=== PATIENT | female | born 1950 | race Caucasian/White ===

== ENCOUNTER → 2023-06-13 08:30 | Outpatient (CLI) | payer MEDICARE, SELFPAY ==
[2023-06-13 18:14] LABS: Basophils % 0.4 % (0.1-2.0); Eosinophils # 0.1 K/mm3 (0.0-0.4); Eosinophils % 0.7 % (0.1-12.0); Hematocrit 48.8 % (37.0-47.0); Hemoglobin 15.6 g/dL (12.2-16.2); Lymphocytes # 1.2 K/mm3 (0.7-4.5); Lymphocytes % 15.6 % (10-50); Mean Corpuscular HGB Conc 31.9 g/dL (31.8-35.4); Mean Corpuscular Hemoglobin 29.2 pg (27.0-31.2); Mean Corpuscular Volume 91.6 fl (81-99); Mean Platelet Volume 9.2 fl (7.4-10.4); Monocytes # 0.5 K/mm3 (0.1-1.0); Monocytes % 7.3 % (1.7-9.3); Neutrophils # 5.6 K/mm3 (1.8-7.8); Platelet Count 112 K/mm3 (142-424); Red Blood Count 5.33 M/mm3 (4.20-5.40); Red Cell Distribution Width 14.7 % (11.5-17.5); White Blood Count 7.4 K/mm3 (4.8-10.8)
[2023-06-13 18:24] LABS: Alanine Aminotransferase 26 U/L (12-78); Albumin/Globulin Ratio 1.1 (1.1-1.8); Alkaline Phosphatase 205 U/L (38-126); Anion Gap 5.3 mEq/L (5-15); Aspartate Amino Transferase 49 U/L (14-36); Blood Urea Nitrogen 11 mg/dl (7-17); Calcium 7.8 mg/dl (8.4-10.2); Carbon Dioxide 31 mmol/L (22.0-30.0); Chloride 101 mmol/L (98-107); Chol/HDL Ratio 2.1 (1-3.5); Cholesterol 162 mg/dl (140-200); Estimated Glomerular Filt Rate 82 ml/min (>60); GFR (African American) 99 ML/MIN (>60); Globulin 2.7 g/dL (1.3-3.2); Glucose 98 mg/dl (74-100); HDL Cholesterol 78 mg/dl (40-60); Potassium 3.3 mmoL/L (3.5-5.1); Sodium 134 mmol/L (136-145); Total Protein,Serum 5.7 g/dl (6.3-8.2); Triglycerides 112 mg/dl (30-150); VLDL Cholesterol 22 mg/dL (0-40)
[2023-06-13 18:35] LABS: Direct LDL Cholesterol 59.86 mg/dL (100-129)
[2023-06-13 18:42] LABS: 25-OH Vitamin D, Total < 12.8 ng/mL (30-100)
[2023-06-13 18:54] LABS: Thyroid Stimulating Hormone 1.32 uIU/mL (0.465-4.68)
== END ==
PROVIDERS: PCP Nurse Practitioner Family; Visit Provider Nurse Practitioner Family
DX: R53.83 Other fatigue (principal); I10 Essential (primary) hypertension; E55.9 Vitamin D deficiency, unspecified; E78.5 Hyperlipidemia, unspecified; Z68.21 Body mass index [BMI] 21.0-21.9, adult; Z87.891 Personal history of nicotine dependence
CPT/HCPCS: 80053; 80061; 82306; 84443; 85025

== ENCOUNTER → 2023-06-20 09:11 | Outpatient (CLI) | payer MEDICARE, SELFPAY ==
[2023-06-20 18:57] LABS: Microalbumin < 6.000 mg/L (0-16.7)
[2023-06-20 19:17] LABS: Creatinine,Urine Random 43 mg/dL (Not Estab.)
== END ==
LOC: LAB.DROPOF 06-21 09:13
PROVIDERS: PCP Nurse Practitioner Family; Visit Provider Nurse Practitioner Family
DX: N39.0 Urinary tract infection, site not specified (principal); N18.9 Chronic kidney disease, unspecified; B96.29 Other Escherichia coli [E. coli] as the cause of diseases classified elsewhere
CPT/HCPCS: 82043; 82570; 87086

== ENCOUNTER 2023-09-25 08:47 | Outpatient (CLI) | payer MEDICARE, SELFPAY ==
--- NOTE | 2023-09-25 09:25 | CT_ITS ---
FINAL REPORT CLINICAL HISTORY: FAMILY H/O OF COLON POLYPS FINDINGS: CT OF THE ABDOMEN AND PELVIS WITH CONTRAST Axial CT images of the abdomen and pelvis were obtained after the administration of oral and iv contrast. Coronal reformatted images were also obtained and reviewed.This study was performed with techniques to keep radiation doses as low as reasonably achievable (ALARA). Individualized dose reduction techniques using automated exposure control or adjustment of mA and/or kV according to the patient's size were employed. Abdomen: There is motion on many of the images which decreases the sensitivity of the exam. The patient is status postcholecystectomy. The liver has an irregular contour consistent with cirrhosis. There is splenomegaly with the spleen measuring 14.7 cm in length. A small to moderate of amount of ascites is noted in the abdomen. No adrenal mass is present. The pancreas has an unremarkable appearance. The kidneys are normal, without evidence of mass or hydronephrosis. The aorta is normal in caliber. There are varices in the left upper quadrant. Pelvis: There is a 4.8 cm polypoid mass near the level of the ileocecal valve with intussusception into the ascending colon. This is best seen on axial image 50 and coronal image 37 and is most worrisome for neoplasm. There is sigmoid diverticulosis. There is a small amount of ascites in the pelvis. The patient is status post hysterectomy. The patient is status post left hip arthroplasty. IMPRESSION: 4.8 cm polypoid mass near the level of the ileocecal valve with intussusception into the ascending colon. Findings are most worrisome for neoplasm. Findings of cirrhosis with portal hypertension. Small to moderate amount of ascites. Reviewed, Interpreted and Dictated by Zechariah Lopez III, MD Transcribed by Octavia Gaona Authenticated and [facility]
--- NOTE | 2023-09-25 09:25 | CT_ITS ---
FINAL REPORT CLINICAL HISTORY: FAMILY H/O OF COLON POLYPS FINDINGS: Axial CT images of the chest were obtained with contrast. Coronal reformatted images were also obtained. This study was performed with techniques to keep radiation doses as low as reasonably achievable, (ALARA). Individualized dose reduction techniques using automated exposure control or adjustment of mA and/or KV according to the patient's size were employed. There is ectasia of the ascending aorta measuring 3.6 cm. There is no evidence of mediastinal or hilar mass or adenopathy. No axillary mass or adenopathy is identified. On lung window images, no pulmonary mass or dominant pulmonary nodule is identified. No localized pulmonary inflammatory process is identified. There is scarring in the right upper lobe. IMPRESSION: No mass or localized inflammatory process. Ectasia of the ascending aorta at 3.6 cm. Reviewed, Interpreted and Dictated by Zechariah Lopez III, MD Transcribed by Octavia Gaona Authenticated and [facility]
[2023-09-25 09:34] LABS: Blood Urea Nitrogen 13 mg/dl (7-17); Estimated Glomerular Filt Rate 70 ml/min (>60); GFR (African American) 85 ML/MIN (>60)
[2023-09-25] MEDS: SODIUM CHLORIDE 0.9% 10ML SYR (RAD ONLY) 10 ML IV (09:59)
[2023-09-25] MEDS: IOPAMIDOL-370 (76%);100ML BOTTLE 75 ML IV (09:59)
== END 2023-09-25 23:59 ==
LOC: RAD 08:48
PROVIDERS: PCP Nurse Practitioner Family; Visit Provider Colon & Rectal Surgery
DX: Z83.719 Family history of colon polyps, unspecified (principal); D12.0 Benign neoplasm of cecum
CPT/HCPCS: 36415; 71260; 74177; 82565; 84520; Q9967

== ENCOUNTER 2023-09-30 14:47 | Outpatient (POV) | payer MEDICARE, SELFPAY | END 2023-09-30 23:59 | disposition home or self-care (01) | LOC: SC 14:47 | PROVIDERS: PCP Nurse Practitioner Family; Visit Provider Dermatology | DX: Z00.00 Encounter for general adult medical examination without abnormal findings (principal) ==

== ENCOUNTER 2024-01-01 19:50 | Inpatient (IN) | payer MEDICARE, SELFPAY ==
[2024-01-01] VITALS (7 sets, daily range): BP systolic 132–174; BP diastolic 75–97; PULSE 93–102; RESP 15–27; TEMP 36.9; O2SAT 91–97; BMI 21.2
--- NOTE | 2024-01-01 19:55 | ED_ITS ---
Discharge Plan Prescriptions Prescriptions: No Action clonazepam 1 mg tablet 1 mg PO BID nitrofurantoin monohyd/m-cryst [Macrobid] 100 mg capsule 100 mg PO Q12H 10 Days Qty: 20 0RF Rx Instructions: must administer with a meal/food cholecalciferol (vitamin D3) 1,250 mcg (50,000 unit) capsule 1,250 mcg PO WEEKLY Qty: 12 0RF ferrous sulfate [FeroSul] 325 mg (65 mg iron) tablet 325 mg PO DAILY Qty: 90 0RF omeprazole 20 mg capsule,delayed release(DR/EC) 20 mg PO DAILY Qty: 90 0RF cholecalciferol (vitamin D3) 50 mcg (2,000 unit) tablet See Rx Instructions .ROUTE .COMPLEX Qty: 90 0RF Dose Instruction: TAKE ONE TABLET BY MOUTH ONCE A DAY Rx Instructions: TAKE ONE TABLET BY MOUTH ONCE A DAY levetiracetam 750 mg tablet See Rx Instructions .ROUTE .COMPLEX Qty: 60 0RF Dose Instruction: TAKE ONE TABLET BY MOUTH 2 TIMES A DAY FOR SEIZURES Rx Instructions: TAKE ONE TABLET BY MOUTH 2 TIMES A DAY FOR SEIZURES escitalopram oxalate 10 mg tablet See Rx Instructions .ROUTE .COMPLEX Qty: 30 0RF Dose Instruction: TAKE ONE TABLET BY MOUTH ONCE A DAY FOR DEPRESSION Rx Instructions: TAKE ONE TABLET BY MOUTH ONCE A DAY FOR DEPRESSION Referrals Follow up/Referrals: Ofelia Ko APRN [Primary Care Provider] - See instructions Discharge ED Provider: Wilbur Angela General Adult HPI General Stated complaint: Swelling in joints,stomach Time Seen by Provider: 01/01/24 19:55 Related Data Home Medications Medication Instructions Recorded Confirmed clonazepam 1 mg tablet 1 mg PO BID 06/13/23 06/13/23 Previous Rx's Medication Instructions Recorded cholecalciferol (vitamin D3) 1,250 1,250 mcg PO WEEKLY vitamin d 06/26/23 mcg (50,000 unit) capsule deficiency #12 caps nitrofurantoin 100 mg PO Q12H 10 days #20 caps 06/26/23 monohydrate/macrocrystals 100 mg capsule (Macrobid) ferrous sulfate 325 mg (65 mg 325 mg PO DAILY iron deficiency 07/03/23 iron) tablet (FeroSul) #90 tabs omeprazole 20 mg capsule,delayed 20 mg PO DAILY #90 caps 07/03/23 release cholecalciferol (vitamin D3) 50 See Rx Instructions .Route 10/06/23 mcg (2,000 unit) tablet .COMPLEX #90 tabs escitalopram oxalate 10 mg tablet See Rx Instructions .Route 12/10/23 .COMPLEX #30 tabs levetiracetam 750 mg tablet See Rx Instructions .Route 12/10/23 .COMPLEX #60 tabs Allergies Allergy/AdvReac Type Severity Reaction Status Date / Time Penicillins Allergy Mild Verified 06/13/23 10:04 [facility] Disclaimer: The information contained in this section may have been updated after the patient was seen, as this information can be updated by other users. Medical History (Updated 06/23/23 @ 03:58 by Delbert Espinoza APRN) CKD (chronic kidney disease) Portal hypertension Hemiplegia affecting right dominant side Secondary hyperaldosteronism Dementia Cirrhosis COPD (chronic obstructive pulmonary disease) Epilepsy Surgical History (Updated 06/13/23 @ 10:10 by Leida Bush CMA) History of cholecystectomy H/O total hysterectomy History of left hip replacement Family History (Updated 06/13/23 @ 10:10 by Leida Bush CMA) Other Cancer Heart attack Hypertension Social History (Updated 06/13/23 @ 10:11 by Leida Bush CMA) Smoking Status: Former smoker alcohol intake: never substance use type: denies use current occupational status: unemployed, retired and disabled Travel in the last 8 weeks: None ROS Obtained: Yes Systems reviewed as appropriate & no additional complaints except as documented Physical Exam General General appearance: alert and in no apparent distress Head Head exam: atraumatic and normal inspection Eye Eye exam: Present normal appearance, PERRL and EOMI ENT ENT exam: Present normal exam, normal oropharynx and mucous membranes moist Neck Neck exam: Present normal inspection, full ROM and trachea midline; Absent lymphadenopathy Chest Chest inspection: Present normal inspection and symmetric chest wall rise Respiratory Respiratory exam: Present normal lung sounds bilaterally; Absent accessory muscle use Cardiovascular Cardiovascular exam: Present regular rate, normal rhythm, normal heart sounds, +S1 and +S2 Abdominal Exam Abdominal exam: Present soft and normal bowel sounds; Absent tenderness, guarding or rebound Extremities Exam Extremities exam: Present normal inspection and full ROM Neurological Exam Neurological exam: Present alert, oriented X3 and CN II-XII intact Psychiatric Psychiatric exam: Present normal affect and normal mood Skin Skin exam: Present warm, dry and normal color Lymphatic Lymphatic Findings: no adenopathy Medical Decision Making Medical Decision Narrative: In summary patient is a [age, sex] who presents to the emergency department for evaluation of [complaint]. Patient is [hemodynamically stable/unstable] upon arrival, [febrile/afebrile]. [Unremarkable physical exam, nonfocal exam versus focal remarkable exam]. Differential diagnosis includes [DDx]. Initial workup will be conducted with [hematologic labs, imaging, respiratory swab, describe workup]. Initial interventions include [crystalloid bolus, medications, p.o. challenge, etc.] initial workup reviewed by me [hematologic labs are remarkable for... Imaging remarkable for... Urinalysis remarkable for]. Upon repeat mounika luation [patient had acceptable resolution of symptoms, had persistent pain for which additional interventions were conducted (describe interventions), tolerated p.o., was ambulatory, etc.]. Given this [patient is appropriate for discharge at this time and will be discharged with a prescription for... The case was discussed with hospital medicine regarding management and they will admit the patient their service for continued evaluation at this time... Etc.] Places where you can increase complexity: I informally interpreted the patient's chest x-ray or CT read and is remarkable for... Documenting what the environmental monitoring technician shows with rate and rhythm Consideration of test but deferring. Ex: I considered chest x-ray on this patient however given that they have no oxygen requirement and are clear to auscultation all lung rosado will be deferred. Social determinants of health: Given that patient is undomiciled increases complexity. Given that patient has polysubstance abuse compounds all aspects of care
--- NOTE | 2024-01-01 20:10 | XR_ITS ---
PROCEDURE INFORMATION: Exam: XR Left Wrist Exam date and time: 01/01/2024 8:25 PM Age: 73 years old Clinical indication: Swelling; Wrist; Left; Additional info: Bruising and swelling posterolateral, suspect fall TECHNIQUE: Imaging protocol: Radiologic exam of the left wrist. Views: 3 or more views. COMPARISON: CR XR FOREARM LT 2V 01/01/2024 8:25 PM FINDINGS: Bones/joints: ORIF of distal radius. No acute fracture line. Osteopenia. Degenerative changes of scaphoid multangular joint. Soft tissues: Normal. IMPRESSION: No acute findings.
--- NOTE | 2024-01-01 20:10 | XR_ITS ---
PROCEDURE INFORMATION: Exam: XR Right Forearm Exam date and time: 01/01/2024 8:25 PM Age: 73 years old Clinical indication: Other: Bruising; Additional info: Bruising and swelling posterolateral, suspect fall TECHNIQUE: Imaging protocol: Radiologic exam of the right forearm. Views: 2 views. COMPARISON: CR XR HAND RT MIN 3V 01/01/2024 8:25 PM FINDINGS: Bones/joints: No fracture line identified. Osteopenia. Degenerative changes of elbow and wrist. No obvious effusion. Soft tissues: Normal. IMPRESSION: No acute findings.
--- NOTE | 2024-01-01 20:10 | XR_ITS ---
PROCEDURE INFORMATION: Exam: XR Right Hand Exam date and time: 01/01/2024 8:25 PM Age: 73 years old Clinical indication: Other: Bruising; Additional info: Bruising and swelling posterolateral, suspect fall TECHNIQUE: Imaging protocol: Radiologic exam of the right hand. Views: 3 or more views. COMPARISON: CR XR HAND RT MIN 3V 01/01/2024 8:25 PM FINDINGS: Bones/joints: ORIF of distal radius. No acute fracture line. Osteopenia. Degenerative changes of scaphoid multangular, carpometacarpal and intercarpal joints. Soft tissues: Normal. IMPRESSION: No acute findings.
--- NOTE | 2024-01-01 20:10 | XR_ITS ---
PROCEDURE INFORMATION: Exam: XR Right Wrist Exam date and time: 01/01/2024 8:25 PM Age: 73 years old Clinical indication: Swelling; Wrist; Right; Additional info: Bruising and swelling posterolateral, suspect fall TECHNIQUE: Imaging protocol: Radiologic exam of the right wrist. Views: 3 or more views. COMPARISON: CR XR WRIST RT MIN 3V 01/01/2024 8:25 PM FINDINGS: Bones/joints: No acute fracture line. Osteopenia. Degenerative changes of scaphoid multangular joint. Soft tissues: Normal. IMPRESSION: No acute findings.
--- NOTE | 2024-01-01 20:10 | XR_ITS ---
PROCEDURE INFORMATION: Exam: XR Left Hand Exam date and time: 01/01/2024 8:25 PM Age: 73 years old Clinical indication: Other: Bruising; Additional info: Bruising and swelling posterolateral, suspect fall TECHNIQUE: Imaging protocol: Radiologic exam of the left hand. Views: 3 or more views. COMPARISON: CR XR HAND LT MIN 3V 01/01/2024 8:25 PM FINDINGS: Bones/joints: ORIF of distal radius. No acute fracture line. Osteopenia. Degenerative changes of scaphoid multangular joint. Soft tissues: Normal. IMPRESSION: No acute findings.
--- NOTE | 2024-01-01 20:10 | XR_ITS ---
PROCEDURE INFORMATION: Exam: XR Left Forearm Exam date and time: 01/01/2024 8:25 PM Age: 73 years old Clinical indication: Other: Bruising; Additional info: Bruising and swelling posterolateral, suspect fall TECHNIQUE: Imaging protocol: Radiologic exam of the left forearm. Views: 2 views. COMPARISON: CR XR FOREARM LT 2V 01/01/2024 8:25 PM FINDINGS: Bones/joints: ORIF of distal radius. No acute fracture line. Osteopenia. Degenerative changes of scaphoid multangular joint. Degenerative changes of the visualized elbow. No effusion. Soft tissues: Normal. IMPRESSION: No acute findings.
--- NOTE | 2024-01-01 20:10 | XR_ITS ---
PROCEDURE INFORMATION: Exam: XR Right Elbow Exam date and time: 01/01/2024 8:25 PM Age: 73 years old Clinical indication: Other: Bruising; Additional info: Bruising and swelling posterolateral, suspect fall TECHNIQUE: Imaging protocol: Radiologic exam of the right elbow. Views: 3 or more views. COMPARISON: CR XR ELBOW RT MIN 3V 01/01/2024 8:25 PM FINDINGS: Bones/joints: Mild degenerative changes of elbow. No cortical disruption. Osteopenia. No effusion. Soft tissues: Normal. IMPRESSION: No acute findings.
--- NOTE | 2024-01-01 20:12 | CT_ITS ---
PROCEDURE INFORMATION: Exam: CT Head Without Contrast Exam date and time: 01/01/2024 8:27 PM Age: 73 years old Clinical indication: Altered mental status/memory loss; Additional info: AMS, concern for fall TECHNIQUE: Imaging protocol: Computed tomography of the head without contrast. Radiation optimization: All CT scans at this facility use at least one of these dose optimization techniques: automated exposure control; mA and/or kV adjustment per patient size (includes targeted exams where dose is matched to clinical indication); or iterative reconstruction. COMPARISON: No relevant prior studies available. FINDINGS: Brain: No hemorrhage. Underlying periventricular white matter changes. Underlying parenchymal cortical volume loss. Chronic dystrophic calcification of both basal ganglia. No mass effect. Cerebral ventricles: No ventriculomegaly. Paranasal sinuses: Visualized sinuses are unremarkable. No fluid levels. Mastoid air cells: Visualized mastoid air cells are well aerated. Bones: Unremarkable. No acute fracture. Soft tissues: Unremarkable. IMPRESSION: No acute intracranial abnormality.
--- NOTE | 2024-01-01 20:12 | XR_ITS ---
PROCEDURE INFORMATION: Exam: XR Chest Exam date and time: 01/01/2024 8:25 PM Age: 73 years old Clinical indication: Other: AMS TECHNIQUE: Imaging protocol: Radiologic exam of the chest. Views: 1 view. COMPARISON: CT CHEST W CON 09/25/2023 9:46 AM FINDINGS: Lungs: Right mid lung zone opacity. No consolidation. Pleural spaces: Unremarkable. No pleural effusion. No pneumothorax. Heart/Mediastinum: Unremarkable. No cardiomegaly. Bones/joints: Unremarkable. IMPRESSION: Right mid lung zone opacity likely infectious/inflammatory. Recommend follow-up to document resolution on treatment.
--- NOTE | 2024-01-01 20:40 | ED_ITS ---
Discharge Plan Disposition Patient Disposition: Admitted Prescriptions Prescriptions: No Action clonazepam 1 mg tablet 1 mg PO BID nitrofurantoin monohyd/m-cryst [Macrobid] 100 mg capsule 100 mg PO Q12H 10 Days Qty: 20 0RF Rx Instructions: must administer with a meal/food cholecalciferol (vitamin D3) 1,250 mcg (50,000 unit) capsule 1,250 mcg PO WEEKLY Qty: 12 0RF ferrous sulfate [FeroSul] 325 mg (65 mg iron) tablet 325 mg PO DAILY Qty: 90 0RF omeprazole 20 mg capsule,delayed release(DR/EC) 20 mg PO DAILY Qty: 90 0RF cholecalciferol (vitamin D3) 50 mcg (2,000 unit) tablet See Rx Instructions .ROUTE .COMPLEX Qty: 90 0RF Dose Instruction: TAKE ONE TABLET BY MOUTH ONCE A DAY Rx Instructions: TAKE ONE TABLET BY MOUTH ONCE A DAY levetiracetam 750 mg tablet See Rx Instructions .ROUTE .COMPLEX Qty: 60 0RF Dose Instruction: TAKE ONE TABLET BY MOUTH 2 TIMES A DAY FOR SEIZURES Rx Instructions: TAKE ONE TABLET BY MOUTH 2 TIMES A DAY FOR SEIZURES escitalopram oxalate 10 mg tablet See Rx Instructions .ROUTE .COMPLEX Qty: 30 0RF Dose Instruction: TAKE ONE TABLET BY MOUTH ONCE A DAY FOR DEPRESSION Rx Instructions: TAKE ONE TABLET BY MOUTH ONCE A DAY FOR DEPRESSION Referrals Follow up/Referrals: Ofelia Ko APRN [Primary Care Provider] - See instructions Clinical Impressions Clinical Impression: Abdominal swelling, Swelling of extremity, Cellulitis, CHF exacerbation Discharge ED Provider: Wilbur Angela General Adult HPI <Wilbur Angela MD - Last Filed: 01/01/24 22:56> General Chief complaint: PAIN Stated complaint: Swelling in joints,stomach Time Seen by Provider: 01/01/24 19:55 Mode of Arrival: Wheelchair Source of Information: Patient and Relative Limitations: No Limitations Description of Symptoms (Recalled from ER Triage Doc. by RN): Patient reports that she's sick in her whole body. Patient endorses all over pain for the last week. Family at bedside reports that patient has known liver cirrosis, her belly appears more swollen than usual and noted swelling in her extremities as well. Family also noted that her ankles appear purple when they don't normally appear that way. History of Present Illness HPI narrative: Please note that above description of symptoms, in this electronic medical record under categorization of recalled from ER triage doctor by RN are reflective of an initial nursing assessment, however, is not reflective of my full history and physical exam that was personally taken and clarified. Consequentially, this preceding description of symptoms, which may include the patient's categorized chief complaint in the EMR, do not reflect my personal clinical impression, and the ultimate description of history of present illness and patient stated complaints should be deferred to this section of the note. Unless stated otherwise or congruent with this section of the note, additional signs, symptoms, or incongruence should be interpreted as inaccurate with my clinical impression. Related Data Home Medications Medication Instructions Recorded Confirmed clonazepam 1 mg tablet 1 mg PO BID 06/13/23 06/13/23 Previous Rx's Medication Instructions Recorded cholecalciferol (vitamin D3) 1,250 1,250 mcg PO WEEKLY vitamin d 06/26/23 mcg (50,000 unit) capsule deficiency #12 caps nitrofurantoin 100 mg PO Q12H 10 days #20 caps 06/26/23 monohydrate/macrocrystals 100 mg capsule (Macrobid) ferrous sulfate 325 mg (65 mg 325 mg PO DAILY iron deficiency 07/03/23 iron) tablet (FeroSul) #90 tabs omeprazole 20 mg capsule,delayed 20 mg PO DAILY #90 caps 07/03/23 release cholecalciferol (vitamin D3) 50 See Rx Instructions .Route 10/06/23 mcg (2,000 unit) tablet .COMPLEX #90 tabs escitalopram oxalate 10 mg tablet See Rx Instructions .Route 12/10/23 .COMPLEX #30 tabs levetiracetam 750 mg tablet See Rx Instructions .Route 12/10/23 .COMPLEX #60 tabs Allergies Allergy/AdvReac Type Severity Reaction Status Date / Time Penicillins Allergy Mild Verified 06/13/23 10:04 [facility] <Wilbur nAgela MD - Last Filed: 01/01/24 22:56> [facility] Disclaimer: The information contained in this section may have been updated after the patient was seen, as this information can be updated by other users. Medical History (Updated 01/01/24 @ 22:56 by Wilbur Angela MD) CKD (chronic kidney disease) Portal hypertension Hemiplegia affecting right dominant side Secondary hyperaldosteronism Dementia Cirrhosis COPD (chronic obstructive pulmonary disease) Epilepsy Surgical History (Updated 06/13/23 @ 10:10 by Leida Bush CMA) History of cholecystectomy H/O total hysterectomy History of left hip replacement Family History (Updated 06/13/23 @ 10:10 by Leida Bush CMA) Other Cancer Heart attack Hypertension Social History (Updated 06/13/23 @ 10:11 by Leida Bush CMA) Smoking Status: Former smoker alcohol intake: never substance use type: denies use current occupational status: unemployed, retired and disabled Travel in the last 8 weeks: None <Wilbur Angela MD - Last Filed: 01/01/24 22:56> ROS Obtained: Yes All systems reviewed & no additional complaints except as documented Physical Exam <Wilbur Angela MD - Last Filed: 01/01/24 22:56> General General appearance: alert, in no apparent distress and other (Chronically ill, in no acute distress) Head Head exam: atraumatic and normocephalic Eye Eye exam: Present PERRL, EOMI and scleral icterus Neck Neck exam: Present normal inspection, full ROM and trachea midline Respiratory Respiratory exam: Present wheezes (Bilateral diffuse expiratory wheezes); Absent respiratory distress, stridor, accessory muscle use or prolonged expiratory phase Cardiovascular Cardiovascular exam: Present regular rate, normal rhythm and other (Pulses equal symmetric in upper and lower extremities) Abdominal Exam Abdominal exam: Present soft, distention and other (Fluid wave); Absent tenderness or pulsatile mass Extremities Exam Extremities exam: Present full ROM and other (Patient has scattered petechiae on lower extremities, primarily around sock lines. Bilateral upper extremities with bruising about lateral aspects of bilateral hands, wrist, forearms, concerning for fall and trauma.); Absent tenderness or edema Neurological Exam Neurological exam: Present alert and CN II-XII intact; Absent oriented X3 (Oriented only to person) or motor sensory deficit Skin Skin exam: Present warm and dry; Absent diaphoresis or erythema Medical Decision Making <Wilbur Angela MD - Last Filed: 01/01/24 22:56> Medical Records Medical records reviewed: Yes I reviewed the patient's medical records. [place] Inquiry Pt receiving controlled substance: No [place]us was queried for this patient: No Vital Signs: 01/01/24 19:52 01/01/24 20:53 01/01/24 21:00 Temperature 98.5 F Temperature Source Oral Pulse Rate 94 H 94 H Pulse Rate [Left Radial] 94 H Respiratory Rate 19 18 27 H Blood Pressure 157/88 H 151/80 H Blood Pressure [Right Arm] 174/97 H Blood Pressure Mean 134 108 Blood Pressure Mean [Right Arm] 122 Blood Pressure Source [Right Arm] Automatic Cuff Blood Pressure Position [Right Arm] Sitting 02 Sat by Pulse Oximetry 95 96 93 L Oxygen Delivery Method Room Air Oxygen Flow Rate (LPM) 01/01/24 22:00 01/01/24 23:00 Temperature Temperature Source Pulse Rate 102 H 100 H Pulse Rate [Left Radial] Respiratory Rate 15 Blood Pressure 132/83 141/80 H Blood Pressure [Right Arm] Blood Pressure Mean 114 106 Blood Pressure Mean [Right Arm] Blood Pressure Source [Right Arm] Blood Pressure Position [Right Arm] 02 Sat by Pulse Oximetry 91 L 95 Oxygen Delivery Method Nasal Cannula Oxygen Flow Rate (LPM) 2 Lab Data Lab Results 01/01/24 20:50: WBC 11.2 H, RBC 4.22, Hgb 12.5, Hct 37.5, MCV 89.0, MCH 29.7, MCHC 33.4, RDW 15.1, Plt Count 168, MPV 8.5, Neut % (Auto) 85.2 H, Lymph % (Auto) 6.9 L, Finney % (Auto) 7.0, Eos % (Auto) 0.7, Baso % (Auto) 0.3, Neut # (Auto) 9.6 H, Lymph # (Auto) 0.8, Finney # (Auto) 0.8, Eos # (Auto) 0.1, Baso # (Auto) 0.0, Total Counted 100, Neutrophils % (Manual) 87 H, Lymphocytes % (Manual) 8 L, Monocytes % (Manual) 5, Platelet Estimate Normal, Poikilocytosis 1+, PT 11.1, INR 0.99, APTT 31.8 H, Fibrinogen 347, D-Dimer 7.93 H, Sodium 132 L , Potassium 3.7, Chloride 106, Carbon Dioxide 25, Anion Gap 4.7 L, BUN 31 H, C reatinine 1.30 H, Estimated Creat Clear 33, Estimated GFR 40 L, Est GFR ( Amer) 49 L, Glucose 143 H, Lactate 1.3, Calcium 8.2 L, Total Bilirubin 0.9, AST 30, ALT 19, Alkaline Phosphatase 172 H, Ammonia 34 H, NT-Pro-B Natriuret Pep 3530 H, Total Protein 5.9 L, Albumin 2.8 L, Globulin 3.1, Albumin/Globulin Ratio 0.9 L, Lipase 135 01/01/24 20:50 01/01/24 20:50 Orders (Tests/Meds): ED MEDICATIONS Generic Name Dose Route Start Last Admin Trade Name Barbara PRN Reason Stop Dose Admin Lactated Ringer's 1,000 mls @ 100 mls/hr 01/01/24 22:30 01/01/24 22:37 Lactated Ringer's 1000 Ml Bag IV 01/31/24 22:29 100 mls/hr .Q10H DOYLE Administration Vancomycin HCl 1,000 mg/ 250 mls @ 125 mls/hr 01/01/24 23:15 Sodium Chloride IV 01/02/24 01:14 ONCE ONE Miscellaneous 1 each 01/01/24 23:00 Vancomycin Consult Request NOTAPPLIC 01/31/24 22:59 [facility]SULT [facility] Sodium Chloride 10 ml 01/01/24 22:19 01/01/24 22:20 Sodium Chloride 0.9% 10ml Syr (Rad Only) IV 01/31/24 22:18 10 ml NEEDED PRN Administration Maintain IV Site Discontinued Medications Generic Name Dose Route Start Last Admin Trade Name Barbara PRN Reason Stop Dose Admin Albuterol/Ipratropium 9 ml 01/01/24 20:45 01/01/24 21:10 Ipratropium/Albuterol 3 Ml Neb IH 01/01/24 20:46 9 ml ONCE ONE Administration Cefepime HCl 2 gm/ Sodium 100 mls @ 200 mls/hr 01/01/24 22:55 Chloride IV 01/01/24 23:24 ONCE ONE Iopamidol 100 ml 01/01/24 22:19 01/01/24 22:20 Iopamidol-370 (76%);100ml Bottle IV 01/01/24 22:20 100 ml ONCE ONE Administration Methylprednisolone Sodium Succinate 125 mg 01/01/24 20:45 01/01/24 21:07 Methylprednisolone Sod Succ 125mg Vial IV 01/01/24 20:46 125 mg ONCE ONE Administration Ondansetron HCl 4 mg 01/01/24 21:06 01/01/24 21:24 Ondansetron 4mg/2ml Vial IV 01/01/24 21:07 Not Given ONCE ONE Sodium Chloride 50 ml 01/01/24 22:19 01/01/24 22:20 0.9 % Sodium Chloride 50 Ml Vial IV 01/01/24 22:20 50 ml ONCE ONE Administration ORDERS Category Date Time Status CT abdomen pelvis w con Stat Cat Scan 01/01/24 22:[address] angio chest PE protocol Stat Cat Scan 01/01/24 22:[address] head/brain wo con Stat Cat Scan 01/01/24 20:12 Completed Elbow XR right minimum 3 views [XR elbow RT min 3V] Exams 01/01/24 20:10 Completed Stat Forearm XR left 2 views [XR forearm LT 2V] Stat Exams 01/01/24 20:10 Completed Forearm XR right 2 views [XR forearm RT 2V] Stat Exams 01/01/24 20:10 Completed Hand XR left minimum 3 views [XR hand LT min 3V] Stat Exams 01/01/24 20:10 Completed Hand XR right minimum 3 views [XR hand RT min 3V] Stat Exams 01/01/24 20:10 Completed Wrist XR left minimum 3 views [XR wrist LT min 3V] Stat Exams 01/01/24 20:10 Completed Wrist XR right minimum 3 views [XR wrist RT min 3V] Exams 01/01/24 20:10 Completed Stat XR chest portable Stat Exams 01/01/24 20:12 Completed Ammonia Stat Lab 01/01/24 20:50 Completed Complete Blood Count Auto Diff Stat Lab 01/01/24 20:50 Completed Comprehensive Metabolic Panel Stat Lab 01/01/24 20:50 Completed D-Dimer Stat Lab 01/01/24 20:50 Completed Fibrinogen Stat Lab 01/01/24 20:50 Completed Lactic Acid Stat Lab 01/01/24 20:50 Completed Lipase Stat Lab 01/01/24 20:50 Completed NT Pro Brain Natriuretic Pep. Stat Lab 01/01/24 20:50 Completed PT INR [Prothrombin Time INR] Stat Lab 01/01/24 20:50 Completed PTT [Activated Partial Thrombo Time] Stat Lab 01/01/24 20:50 Completed Urinalysis and Microscopic Stat Lab 01/01/24 20:15 Ordered Medical Decision Narrative: 73-year-old female history of hypertension, hyperlipidemia, medication induced hepatic cirrhosis, CKD, dementia presenting with bruising bilateral upper extremities, abdominal swelling. Patient family providing most of history given patient's dementia. Patient states that she has had pain all over, but cannot specify where. This been going on for a couple of days. Family states that patient has been taking all her medications as they give her all of her medications. They state that they checked on her today, patient was complaining of pain, started having welling in her bilateral upper extremities, as well as red spots on her bilateral lower extremities, which is not normal for her. Also note that they saw the patient's abdomen is more distended than that that was normal. Patient has needed paracentesis in the past, no history of abdominal infection. Because of this, brought her in for further evaluation. It should be noted that patient has dementia which is complicating history and care. History was obtained via conversation with patient, but primarily family. On arrival, patient hemodynamically stable, alert, oriented only to person appropriate, GCS 15, moving all extremities spontaneously, pupils equal and reactive to light. Full physical exam performed and significant for chronically ill-appearing woman who is in no acute distress. She does have scleral icterus. She also asterixis. Spider angiomas on bilateral upper and lower extremities, as well as trunk. She does have what appear to be petechiae on lower extremities at sock lines. Differential includes hyperammonemia, metabolic abnormality, endocrinologic abnormality, SBP, sepsis, UTI, pneumonia, intracranial bleed, cellulitis, fracture, sprain, strain, dislocation, CHF, coagulopathy, among others. Patient was given fluids on a rate for symptomatic management and correction of underlying abnormalities. Workup independently interpreted and significant for Mild leukocytosis 11 with neutrophilia. INR normal at 0.99, PTT normal at 32, fibrinogen normal at 347. D-dimer elevated at 7.9 ng/mL. Chemistry with mild hyponatremia, this appears to be chronic. Potassium normal. Patient has mild MARYLU with creatinine 1.3 up from baseline of normal. Lactate negative. LFTs nonactionable, ammonia elevated mildly at 34. Patient's BNP is markedly elevated at 3500, no baseline with which to compare. Because patient has new swelling, elevated BNP, elevated D-dimer, concern for PE. chest x-ray with scarring in the right midlung versus inflammation versus atelectasis. Difficult to discern etiology. CT head without acute intracranial abnormality. X-rays of the upper extremities which are swollen and red were negative on independent interpretation. Urinalysis still pending at time of handoff to oncoming physician. On reevaluation, patient still has no acute complaints. Conversation was had with family regarding D-dimer, swelling, elevated BNP, likelihood of PE. They opted for CT PE and CT abdomen pelvis for further diagnostic evaluation of patient's symptoms. CT PE as well as CT abdomen and pelvis ordered. Prior to CT results, care handed off to oncoming physician. Mutual Fund Manager disclaimer Much of this encounter note is an electronic pressurization mechanic spoken language to printed text. Electronic pressurization mechanic of the spoken language may permit errors. Although I have reviewed the note, some errors may still exist. <Jay Alcaraz MD - Last Filed: 01/01/24 23:41> Vital Signs: 01/01/24 19:52 01/01/24 20:53 01/01/24 21:00 Temperature 98.5 F Temperature Source Oral Pulse Rate 94 H 94 H Pulse Rate [Left Radial] 94 H Respiratory Rate 19 18 27 H Blood Pressure 157/88 H 151/80 H Blood Pressure [Right Arm] 174/97 H Blood Pressure Mean 134 108 Blood Pressure Mean [Right Arm] 122 Blood Pressure Source [Right Arm] Automatic Cuff Blood Pressure Position [Right Arm] Sitting 02 Sat by Pulse Oximetry 95 96 93 L Oxygen Delivery Method Room Air Oxygen Flow Rate (LPM) 01/01/24 22:00 01/01/24 23:00 Temperature Temperature Source Pulse Rate 102 H 100 H Pulse Rate [Left Radial] Respiratory Rate 15 Blood Pressure 132/83 141/80 H Blood Pressure [Right Arm] Blood Pressure Mean 114 106 Blood Pressure Mean [Right Arm] Blood Pressure Source [Right Arm] Blood Pressure Position [Right Arm] 02 Sat by Pulse Oximetry 91 L 95 Oxygen Delivery Method Nasal Cannula Oxygen Flow Rate (LPM) 2 Lab Data Lab Results 01/01/24 20:50: WBC 11.2 H, RBC 4.22, Hgb 12.5, Hct 37.5, MCV 89.0, MCH 29.7, MCHC 33.4, RDW 15.1, Plt Count 168, MPV 8.5, Neut % (Auto) 85.2 H, Lymph % (Auto) 6.9 L, Finney % (Auto) 7.0, Eos % (Auto) 0.7, Baso % (Auto) 0.3, Neut # (Auto) 9.6 H, Lymph # (Auto) 0.8, Finney # (Auto) 0.8, Eos # (Auto) 0.1, Baso # (Auto) 0.0, Total Counted 100, Neutrophils % (Manual) 87 H, Lymphocytes % (Manual) 8 L, Monocytes % (Manual) 5, Platelet Estimate Normal, Poikilocytosis 1+, PT 11.1, INR 0.99, APTT 31.8 H, Fibrinogen 347, D-Dimer 7.93 H, Sodium 132 L , Potassium 3.7, Chloride 106, Carbon Dioxide 25, Anion Gap 4.7 L, BUN 31 H, C reatinine 1.30 H, Estimated Creat Clear 33, Estimated GFR 40 L, Est GFR ( Amer) 49 L, Glucose 143 H, Lactate 1.3, Calcium 8.2 L, Total Bilirubin 0.9, AST 30, ALT 19, Alkaline Phosphatase 172 H, Ammonia 34 H, NT-Pro-B Natriuret Pep 3530 H, Total Protein 5.9 L, Albumin 2.8 L, Globulin 3.1, Albumin/Globulin Ratio 0.9 L, Lipase 135 Orders (Tests/Meds): ED MEDICATIONS Generic Name Dose Route Start Last Admin Trade Name Freq PRN Reason Stop Dose Admin Lactated Ringer's 1,000 mls @ 100 mls/hr 01/01/24 22:30 01/01/24 22:37 Lactated Ringer's 1000 Ml Bag IV 01/31/24 22:29 100 mls/hr .Q10H DOYLE Administration Vancomycin HCl 1,000 mg/ 250 mls @ 125 mls/hr 01/01/24 23:15 Sodium Chloride IV 01/02/24 01:14 ONCE ONE Miscellaneous 1 each 01/01/24 23:00 Vancomycin Consult Request NOTAPPLIC 01/31/24 22:59 CONSULT PHARMACY [facility] Sodium Chloride 10 ml 01/01/24 22:19 01/01/24 22:20 Sodium Chloride 0.9% 10ml Syr (Rad Only) IV 01/31/24 22:18 10 ml NEEDED PRN Administration Maintain IV Site Discontinued Medications Generic Name Dose Route Start Last Admin Trade Name Freq PRN Reason Stop Dose Admin Albuterol/Ipratropium 9 ml 01/01/24 20:45 01/01/24 21:10 Ipratropium/Albuterol 3 Ml Neb IH 01/01/24 20:46 9 ml ONCE ONE Administration Cefepime HCl 2 gm/ Sodium 100 mls @ 200 mls/hr 01/01/24 22:55 Chloride IV 01/01/24 23:24 ONCE ONE Iopamidol 100 ml 01/01/24 22:19 01/01/24 22:20 Iopamidol-370 (76%);100ml Bottle IV 01/01/24 22:20 100 ml ONCE ONE Administration Methylprednisolone Sodium Succinate 125 mg 01/01/24 20:45 01/01/24 21:07 Methylprednisolone Sod Succ 125mg Vial IV 01/01/24 20:46 125 mg ONCE ONE Administration Ondansetron HCl 4 mg 01/01/24 21:06 01/01/24 21:24 Ondansetron 4mg/2ml Vial IV 01/01/24 21:07 Not Given ONCE ONE Sodium Chloride 50 ml 01/01/24 22:19 01/01/24 22:20 0.9 % Sodium Chloride 50 Ml Vial IV 01/01/24 22:20 50 ml ONCE ONE Administration ORDERS Category Date Time Status CT abdomen pelvis w con Stat Cat Scan 01/01/24 22:[address] angio chest PE protocol Stat Cat Scan 01/01/24 22:[address] head/brain wo con Stat Cat Scan 01/01/24 20:12 Completed Elbow XR right minimum 3 views [XR elbow RT min 3V] Exams 01/01/24 20:10 Completed Stat Forearm XR left 2 views [XR forearm LT 2V] Stat Exams 01/01/24 20:10 Completed Forearm XR right 2 views [XR forearm RT 2V] Stat Exams 01/01/24 20:10 Completed Hand XR left minimum 3 views [XR hand LT min 3V] Stat Exams 01/01/24 20:10 Completed Hand XR right minimum 3 views [XR hand RT min 3V] Stat Exams 01/01/24 20:10 Completed Wrist XR left minimum 3 views [XR wrist LT min 3V] Stat Exams 01/01/24 20:10 Completed Wrist XR right minimum 3 views [XR wrist RT min 3V] Exams 01/01/24 20:10 Completed Stat XR chest portable Stat Exams 01/01/24 20:12 Completed Ammonia Stat Lab 01/01/24 20:50 Completed Complete Blood Count Auto Diff Stat Lab 01/01/24 20:50 Completed Comprehensive Metabolic Panel Stat Lab 01/01/24 20:50 Completed D-Dimer Stat Lab 01/01/24 20:50 Completed Fibrinogen Stat Lab 01/01/24 20:50 Completed Lactic Acid Stat Lab 01/01/24 20:50 Completed Lipase Stat Lab 01/01/24 20:50 Completed NT Pro Brain Natriuretic Pep. Stat Lab 01/01/24 20:50 Completed PT INR [Prothrombin Time INR] Stat Lab 01/01/24 20:50 Completed PTT [Activated Partial Thrombo Time] Stat Lab 01/01/24 20:50 Completed Urinalysis and Microscopic Stat Lab 01/01/24 20:15 Ordered Medical Decision Narrative: 73-year-old female history of hypertension, hyperlipidemia, medication induced hepatic cirrhosis, CKD, dementia presenting with bruising bilateral upper extremities, abdominal swelling. Patient family providing most of history given patient's dementia. Patient states that she has had pain all over, but cannot specify where. This been going on for a couple of days. Family states that patient has been taking all her medications as they give her all of her medications. They state that they checked on her today, patient was complaining of pain, started having welling in her bilateral upper extremities, as well as red spots on her bilateral lower extremities, which is not normal for her. Also note that they saw the patient's abdomen is more distended than that that was normal. Patient has needed paracentesis in the past, no history of abdominal infection. Because of this, brought her in for further evaluation. It should be noted that patient has dementia which is complicating history and care. History was obtained via conversation with patient, but primarily family. On arrival, patient hemodynamically stable, alert, oriented only to person appropriate, GCS 15, moving all extremities spontaneously, pupils equal and reactive to light. Full physical exam performed and significant for chronically ill-appearing woman who is in no acute distress. She does have scleral icterus. She also asterixis. Spider angiomas on bilateral upper and lower extremities, as well as trunk. She does have what appear to be petechiae on lower extremities at sock lines. Differential includes hyperammonemia, metabolic abnormality, endocrinologic abnormality, SBP, sepsis, UTI, pneumonia, intracranial bleed, cellulitis, fracture, sprain, strain, dislocation, CHF, coagulopathy, among others. Patient was given fluids on a rate for symptomatic management and correction of underlying abnormalities. Workup independently interpreted and significant for Mild leukocytosis 11 with neutrophilia. INR normal at 0.99, PTT normal at 32, fibrinogen normal at 347. D-dimer elevated at 7.9 ng/mL. Chemistry with mild hyponatremia, this appears to be chronic. Potassium normal. Patient has mild MARYLU with creatinine 1.3 up from baseline of normal. Lactate negative. LFTs nonactionable, ammonia elevated mildly at 34. Patient's BNP is markedly elevated at 3500, no baseline with which to compare. Because patient has new swelling, elevated BNP, elevated D-dimer, concern for PE. chest x-ray with scarring in the right midlung versus inflammation versus atelectasis. Difficult to discern etiology. CT head without acute intracranial abnormality. X-rays of the upper extremities which are swollen and red were negative on independent interpretation. Urinalysis still pending at time of handoff to oncoming physician. On reevaluation, patient still has no acute complaints. Conversation was had with family regarding D-dimer, swelling, elevated BNP, likelihood of PE. They opted for CT PE and CT abdomen pelvis for further diagnostic evaluation of patient's symptoms. CT PE as well as CT abdomen and pelvis ordered. Prior to CT results, care handed off to oncoming physician. Mutual Fund Manager disclaimer Much of this encounter note is an electronic pressurization mechanic spoken language to printed text. Electronic pressurization mechanic of the spoken language may permit errors. Although I have reviewed the note, some errors may still exist. Alcaraz: Upon my assumption of care patient is stable. I agree with the assessment and plan from Dr. Angela. CT imaging pending at the time my assumption of care. CT PE, CT abdomen pelvis were personally interpreted, I do not appreciate PE or acute abdominal abnormality though patient does have multiple chronic changes, sequela of portal hypertension, I also do appreciate right upper lobe abnormality concerning for infectious infiltrate. Patient is already been treated with antibiotics. At this time patient is appropriate for admission for continued IV antibiotics and management of cellulitis, CHF exacerbation, among the other identified abnormalities. I discussed this case with the hospitalist who has accepted the patient for admission. Critical Care <Wilbur Angela MD - Last Filed: 01/01/24 22:56> Critical Care Time Critical Care Time: No
[2024-01-01] MEDS: METHYLPREDNISOLONE SOD SUCC 125MG VIAL 125 MG IV (21:07)
[2024-01-01] MEDS: IPRATROPIUM/ALBUTEROL 3 ML NEB 9 ML IH (21:10)
[2024-01-01 21:23] LABS: Basophils % 0.3 % (0.1-2.0); Eosinophils # 0.1 K/mm3 (0.0-0.4); Eosinophils % 0.7 % (0.1-12.0); Hematocrit 37.5 % (37.0-47.0); Hemoglobin 12.5 g/dL (12.2-16.2); Lymphocytes # 0.8 K/mm3 (0.7-4.5); Lymphocytes % 6.9 % (10-50); Mean Corpuscular HGB Conc 33.4 g/dL (31.8-35.4); Mean Corpuscular Hemoglobin 29.7 pg (27.0-31.2); Mean Platelet Volume 8.5 fl (7.4-10.4); Monocytes # 0.8 K/mm3 (0.1-1.0); Neutrophils # 9.6 K/mm3 (1.8-7.8); Neutrophils % 85.2 % (37.0-80.0); Platelet Count 168 K/mm3 (142-424); Red Blood Count 4.22 M/mm3 (4.20-5.40); Red Cell Distribution Width 15.1 % (11.5-17.5); White Blood Count 11.2 K/mm3 (4.8-10.8)
[2024-01-01 21:25] LABS: MANUAL DIFFERENTIAL MANUAL DIFFERENTIAL (MANUAL DIFF)
[2024-01-01 21:30] LABS: Chloride 106 mmol/L (98-107); Potassium 3.7 mmoL/L (3.5-5.1); Sodium 132 mmol/L (136-145)
[2024-01-01 21:32] LABS: Ammonia 34 umol/L (9-30)
[2024-01-01 21:33] LABS: Alanine Aminotransferase 19 U/L (12-78); Albumin Level 2.8 g/dl (3.5-5.0); Albumin/Globulin Ratio 0.9 (1.1-1.8); Alkaline Phosphatase 172 U/L (38-126); Aspartate Amino Transferase 30 U/L (14-36); Bilirubin,Total 0.9 mg/dl (0.2-1.3); Blood Urea Nitrogen 31 mg/dl (7-17); Calcium 8.2 mg/dl (8.4-10.2); Carbon Dioxide 25 mmol/L (22.0-30.0); Creatinine Clearance Estimated 33 mL/min (50-200); Estimated Glomerular Filt Rate 40 ml/min (>60); GFR (African American) 49 ML/MIN (>60); Globulin 3.1 g/dL (1.3-3.2); Glucose 143 mg/dl (74-100); Lactic Acid 1.3 mmol/L (0.7-2.1); Lipase 135 U/L (23-300); Total Protein,Serum 5.9 g/dl (6.3-8.2)
[2024-01-01 21:34] LABS: Activated Partial Thrombo Time 31.8 seconds (22.8-30.6); INR 0.99 (0.9-1.1); Prothrombin Time 11.1 seconds (10.1-12.5)
[2024-01-01 21:38] LABS: Anion Gap 4.7 mEq/L (5-15)
[2024-01-01 21:41] LABS: Lymphocytes % 8 % (10-50); Monocytes % 5 % (2-9); Neutrophils % 87 % (42-76); Platelet Estimate Normal; Poikilocytosis 1+; Total Cells Counted 100
[2024-01-01 21:43] LABS: Fibrinogen 347 mg/dL (229.9-363.5); NT Pro Brain Natriuretic Pep. 3530 pg/mL (0-125)
[2024-01-01 21:55] LABS: D-Dimer 7.93 ug/mL (0.0-0.5)
--- NOTE | 2024-01-01 22:00 | CT_ITS ---
PROCEDURE INFORMATION: Exam: CT Abdomen And Pelvis With Contrast Exam date and time: 01/01/2024 10:20 PM Age: 73 years old Clinical indication: Other: Abdominal distention; Additional info: Abdominal distention, cirrhosis TECHNIQUE: Imaging protocol: Computed tomography of the abdomen and pelvis with contrast. Radiation optimization: All CT scans at this facility use at least one of these dose optimization techniques: automated exposure control; mA and/or kV adjustment per patient size (includes targeted exams where dose is matched to clinical indication); or iterative reconstruction. Contrast material: ISOVUE; Contrast volume: 75 ml; Contrast route: IV; COMPARISON: CT ABDOMEN PELVIS W CON 01/01/2024 10:20 PM FINDINGS: Liver: Heterogeneous. Irregularly contoured liver. No intrahepatic biliary ductal dilatation. No obvious mass. Gallbladder and biliary ducts: Surgically absent gallbladder. Pancreas: Normal. No ductal dilation. Spleen: Spleen measures 15 cm. Adrenal glands: Normal. No mass. Kidneys and ureters: Normal. No hydronephrosis. Stomach and bowel: Sigmoid colonic diverticula. Postsurgical changes of ascending and transverse colon. Appendix: No evidence of appendicitis. Intraperitoneal space: Abdominopelvic ascites. Retroperitoneal space: Prominent perigastric, retroperitoneal and perisplenic collateral vessels. Vasculature: Atherosclerotic calcification of aortoiliac arteries. Lymph nodes: Unremarkable. No enlarged lymph nodes. Urinary bladder: Unremarkable as visualized. Reproductive: Unremarkable as visualized. Bones/joints: Left hip prosthesis. Soft tissues: Unremarkable. IMPRESSION: 1. Hepatic cirrhosis without obvious mass. 2. Splenomegaly with extensive collateral vessels suspicious for sequela portal hypertension. 3. Abdominopelvic ascites. 4. Sigmoid colonic diverticulosis.
--- NOTE | 2024-01-01 22:00 | CT_ITS ---
PROCEDURE INFORMATION: Exam: CTA Chest With Contrast Exam date and time: 01/01/2024 10:20 PM Age: 73 years old Clinical indication: Other: Diffuse swelling; Additional info: Elevated dimer, diffuse swelling TECHNIQUE: Imaging protocol: Computed tomographic angiography of the chest with contrast. Exam focused on the arteries. 3D rendering (Not supervised by radiologist): MIP and/or 3D reconstructed images were created by the technologist. Radiation optimization: All CT scans at this facility use at least one of these dose optimization techniques: automated exposure control; mA and/or kV adjustment per patient size (includes targeted exams where dose is matched to clinical indication); or iterative reconstruction. Contrast material: ISOVUE; Contrast volume: 75 ml; Contrast route: INTRAVENOUS (IV); COMPARISON: CT CHEST W CON 09/25/2023 9:46 AM FINDINGS: Pulmonary arteries: Normal. No pulmonary emboli. Aorta: Atherosclerotic calcification of thoracic aorta. Lungs: Underlying mild centrilobular emphysematous changes. Pleural spaces: Poorly defined patchy right upper lobar opacity adjacent to major fissure. Heart: Unremarkable. No cardiomegaly. No pericardial effusion. Lymph nodes: Unremarkable. No enlarged lymph nodes. Bones/joints: Age-indeterminate but unchanged midthoracic spine vertebral body compression fractures. No acute fractures or osseous findings identified. Soft tissues: Unremarkable. IMPRESSION: 1. No central or segmental pulmonary arterial embolism by CT criteria. 2. Patchy right upper lobar opacity, likely infectious/inflammatory. COMMENTS: The presence of pulmonary emphysema on CT is an independent risk factor for lung cancer. In the absence of a history or active diagnosis of lung cancer, it is recommended that this patient with emphysema be evaluated for enrollment in a low dose CT lung cancer screening program.
[2024-01-01] MEDS: SODIUM CHLORIDE 0.9% 10ML SYR (RAD ONLY) 10 ML IV (22:20)
[2024-01-01] MEDS: 0.9 % SODIUM CHLORIDE 50 ML VIAL IV (22:20)
[2024-01-01] MEDS: IOPAMIDOL-370 (76%);100ML BOTTLE 100 ML IV (22:20)
[2024-01-01] MEDS: LACTATED RINGERS 1000ML 1,000 ML 100 ML IV (22:37)
--- NOTE | 2024-01-01 22:40 | PC.NURSE ---
Rounded on patient and administered LR at a rate of 100ml's/hr as per the MAR
--- NOTE | 2024-01-01 23:00 | PC.NURSE ---
Spoke with Bridger Arriaga at [facility] pharmacy to verify dose of Vancomycin and Cefepime . ok dose of Cefepime and veriied 1 gram dose Vancomycin.
[2024-01-01] MEDS: CEFEPIME HCL 2 GM in 0.9 % SODIUM CHLORIDE 100 ML IV (23:23)
--- NOTE | 2024-01-01 23:41 | PC.NURSE ---
call placed to greenhouse superintendent, spoke with Reema; pt admitted for dx : cellulitis, acute chf exac; to the hospitalist
[2024-01-02] VITALS (9 sets, daily range): BP systolic 134–156; BP diastolic 68–90; PULSE 68–93; RESP 16–20; TEMP 36.4–36.7; O2SAT 96–100; BMI 21.2
--- NOTE | 2024-01-02 00:07 | PC.NURSE ---
attempted to call report. the floor nurse was in the middle of medicating another patient and will call back when she can take report.
--- NOTE | 2024-01-02 00:11 | PC.NURSE ---
0012 PHONE REPORT RECEIVED FROM FERNIE RN/ED NURSE. PATIENT IS 73 YO FEMALE DIAGNOSIS CHF/CELLULITIS. MAY TRANSFER VIA W/C.
--- NOTE | 2024-01-02 00:19 | PC.NURSE ---
report called to Kathy SERVIN . Pt. to be admitted to floor.
[2024-01-02] MEDS: VANCOMYCIN HCL 1,000 MG in 0.9 % SODIUM CHLORIDE 250 ML 125 MG IV (00:24)
[2024-01-02] MEDS: VANCOMYCIN CONSULT REQUEST 1 EACH NOTAPPLIC (02:02)
--- NOTE | 2024-01-02 02:04 | P.HP_ITS ---
History of Present Illness *Admission Date: 01/02/24 *Reason for visit:: Feels sick *History of present illness: 73-year-old female history of hypertension, hyperlipidemia, medication induced hepatic cirrhosis, CKD, dementia presenting with bruising bilateral upper extremities, abdominal swelling. Patient has significant dementia, unable to provide history. History is provided by ER physician and documentation Patient states that she has had pain all over, but cannot specify where. This been going on for a couple of days. Family states that patient has been taking all her medications as they give her all of her medications. They state that they checked on her today, patient was complaining of pain, started having welling in her bilateral upper extremities, as well as red spots on her bilateral lower extremities, which is not normal for her. Also note that they saw the patient's abdomen is more distended than that that was normal. Patient has needed paracentesis in the past, no history of abdominal infection. Because of this, brought her in for further evaluation. It should be noted that patient has dementia which is complicating history and care. History was obtained via conversation with patient, but primarily family. On arrival, patient hemodynamically stable, alert, oriented only to person appropriate, GCS 15, moving all extremities spontaneously, pupils equal and reactive to light. Full physical exam performed and significant for chronically ill-appearing woman who is in no acute distress. She does have scleral icterus. She also asterixis. Spider angiomas on bilateral upper and lower extremities, as well as trunk. She does have what appear to be petechiae on lower extremities at sock lines. Patient was given fluids on a rate for symptomatic management and correction of underlying abnormalities. Workup independently interpreted and significant for Mild leukocytosis 11 with neutrophilia. INR normal at 0.99, PTT normal at 32, fibrinogen normal at 347. D-dimer elevated at 7.9 ng/mL. Chemistry with mild hyponatremia, this appears to be chronic. Potassium normal. Patient has mild MARYLU with creatinine 1.3 up from baseline of normal. Lactate negative. LFTs nonactionable, ammonia elevated mildly at 34. Patient's BNP is markedly elevated at 3500, no baseline with which to compare. Because patient has new swelling, elevated BNP, elevated D-dimer, concern for PE. chest x-ray with scarring in the right midlung versus inflammation versus atelectasis. Difficult to discern etiology. CT head without acute intracranial abnormality. X-rays of the upper extremities which are swollen and red were negative on independent interpretation. Urinalysis still pending at time of handoff to oncoming physician. Conversation was had with family regarding D-dimer, swelling, elevated BNP, likelihood of PE. They opted for CT PE and CT abdomen pelvis for further diagnostic evaluation of patient's symptoms. CT PE as well as CT abdomen and pelvis ord ered. [facility] Disclaimer: The information contained in this section may have been updated after the patient was seen, as this information can be updated by other users. Medical History CKD (chronic kidney disease) Portal hypertension Hemiplegia affecting right dominant side Secondary hyperaldosteronism Dementia Cirrhosis COPD (chronic obstructive pulmonary disease) Epilepsy Surgical History History of cholecystectomy H/O total hysterectomy History of left hip replacement Family History Other Cancer Heart attack Hypertension Social History (Updated 01/02/24 @ 01:02 by Shannon Camacho RN) Smoking Status: Former smoker alcohol intake: never substance use type: denies use current occupational status: unemployed, retired and disabled Travel in the last 8 weeks: None Review of Systems Review of Systems Review of systems:: unable to obtain and pertinent systems reviewed and negative unless documented below Meds Home Medications and Allergies Home Medications Medication Instructions Recorded Confirmed Type clonazepam 1 mg tablet 1 mg PO DAILY 06/13/23 01/02/24 History ferrous sulfate 325 mg (65 mg 325 mg PO DAILY iron deficiency 07/03/23 01/02/24 Rx iron) tablet (FeroSul) #90 tabs omeprazole 20 mg capsule,delayed 20 mg PO DAILY #90 caps 07/03/23 01/02/24 Rx release escitalopram oxalate 10 mg tablet See Rx Instructions .Route 12/10/23 01/02/24 Rx .COMPLEX #30 tabs levetiracetam 750 mg tablet See Rx Instructions .Route 12/10/23 01/02/24 Rx .COMPLEX #60 tabs cholecalciferol (vitamin D3) 125 2,000 mcg PO DAILY 01/02/24 01/02/24 History mcg (5,000 unit) tablet (Vitamin D3) ergocalciferol (vitamin D2) 1,250 50,000 unit PO DAILY 01/02/24 01/02/24 History mcg (50,000 unit) capsule memantine 5 mg tablet 5 mg PO DAILY 01/02/24 01/02/24 History montelukast 10 mg tablet 10 mg PO HS 01/02/24 01/02/24 History New Prescriptions to Start Prescriptions: Allergies Allergy/AdvReac Type Severity Reaction Status Date / Time Penicillins Allergy Mild Verified 06/13/23 10:04 Exam Data for Last 24 hours Vital signs and Labs for Last 24 Hours: Temp Pulse Resp BP Pulse Ox O2 Del Method O2 Flow Rate 98.1 F 92 H 20 137/75 97 Nasal Cannula 2 01/02/24 00:27 01/02/24 00:27 01/02/24 00:27 01/02/24 00:27 01/02/24 01:30 01/02/24 01:30 01/02/24 01:30 Laboratory Results - last 24 hr 01/01/24 20:50: WBC 11.2 H, RBC 4.22, Hgb 12.5, Hct 37.5, MCV 89.0, MCH 29.7, MCHC 33.4, RDW 15.1, Plt Count 168, MPV 8.5, Neut % (Auto) 85.2 H, Lymph % (Auto) 6.9 L, [place] % (Auto) 7.0, Eos % (Auto) 0.7, Baso % (Auto) 0.3, Neut # (Auto) 9.6 H, Lymph # (Auto) 0.8, [place] # (Auto) 0.8, Eos # (Auto) 0.1, Baso # (Auto) 0.0, Total Counted 100, Neutrophils % (Manual) 87 H, Lymphocytes % (Manual) 8 L, Monocytes % (Manual) 5, Platelet Estimate Normal, Poikilocytosis 1+, PT 11.1, INR 0.99, APTT 31.8 H, Fibrinogen 347, D-Dimer 7.93 H, Sodium 132 L , Potassium 3.7, Chloride 106, Carbon Dioxide 25, Anion Gap 4.7 L, BUN 31 H, Creatinine 1.30 H, Estimated Creat Clear 33, Estimated GFR 40 L, Est GFR ( Amer) 49 L, Glucose 143 H, Lactate 1.3, Calcium 8.2 L, Total Bilirubin 0.9, AST 30, ALT 19, Alkaline Phosphatase 172 H, Ammonia 34 H, NT-Pro-B Natriuret Pep 3530 H, Total Protein 5.9 L, Albumin 2.8 L, Globulin 3.1, Albumin/Globulin Ratio 0.9 L, Lipase 135 I & O for Last 24 hours: Intake & Output 12/30/23 12/31/23 01/01/24 01/02/24 23:59 23:59 23:59 23:59 Output Total Balance - Weight 54.431 kg 54.522 kg Constitutional Constitutional: no acute distress *Routine HEENT Exam Head: Present normocephalic Eye: Present EOMI and PERRL ENT: Present mucous membranes moist *Routine Neck Exam Neck: Present supple and JVD; Absent lymphadenopathy *Routine Respiratory Exam Respiratory: Present CTA bilaterally *Routine Cardiovascular Exam Cardiovascular: Present RRR *Routine Abdominal Exam Abdominal: Present soft and normoactive bowel sounds; Absent tenderness *Routine Rectal Exam Rectal:: deferred *Routine Genitalia Exam Genitalia:: deferred *Routine Extremities Exam Extremities: Absent cyanosis, clubbing or edema Comments: Lower extremity rash, petechial, excoriation. Nontender *Routine Skin Exam Skin: Present warm; Absent rash *Routine Neurological Exam Neurological: Present alert and oriented X3 Assessment and Plan *Assessment and plan (1) Cellulitis: Status: Acute Category: Medical Code(s): L03.90 - Cellulitis, unspecified (2) Swelling of extremity: Status: Acute Category: Medical Code(s): M79.89 - Other specified soft tissue disorders (3) Patient new to facility: Status: Acute Category: Medical (4) Dementia: Status: Acute Category: Medical Code(s): F03.90 - Unspecified dementia, unspecified severity, without behavioral disturbance, psychotic disturbance, mood disturbance, and anxiety Plan Admitted for hypervolemia and cellulitis. Patient clinically is hypervolemic and will need further diuresis, follow-up echo. received IV empiric antibiotics for cellulitis Cellulitis Leukocytosis -Received IV empiric antibiotics -Follow-up cultures -Trial of p.o. antibiotics for soft tissue infection starting tomorrow Mild hyponatremia -Monitor MARYLU on CKD -Appears hypervolemic with abdominal swelling and positive JVD. BNP significantly elevated -Echo ordered -Would likely benefit from diuresis, already received fluids in the ER -Will consider starting Lasix and spironolactone in the a.m. 5 to do ratio for cirrhosis Cirrhosis -Right upper quadrant ordered Chronic medical conditions Dementia -continue home meds including psychiatric medications
[2024-01-02] MEDS: HEPARIN SODIUM 5,000 UNIT/ML VIAL 5000 UNIT SQ ×3 (02:26→17:09)
--- NOTE | 2024-01-02 06:29 | PC.NURSE ---
EARLY CHILDHOOD ASSOCIATE reports no void since admission at 0030. oriented to self. Patient has ascites and fluid retention. expiratory wheezes. Mild JVD. NSR on telemetry. 02 at 2lnc. Incont B&B, periarea and buttocks red. Barrier cream applied.
[2024-01-02 06:30] LABS: Alanine Aminotransferase 23 U/L (12-78); Albumin Level 2.6 g/dl (3.5-5.0); Albumin/Globulin Ratio 0.9 (1.1-1.8); Alkaline Phosphatase 136 U/L (38-126); Aspartate Amino Transferase 30 U/L (14-36); Bilirubin,Total 0.6 mg/dl (0.2-1.3); Blood Urea Nitrogen 33 mg/dl (7-17); Calcium 7.9 mg/dl (8.4-10.2); Carbon Dioxide 24 mmol/L (22.0-30.0); Chloride 105 mmol/L (98-107); Creatinine Clearance Estimated 36 mL/min (50-200); Estimated Glomerular Filt Rate 44 ml/min (>60); GFR (African American) 53 ML/MIN (>60); Glucose 158 mg/dl (74-100); Magnesium 1.9 mg/dl (1.6-2.3); Phosphorous 4.5 mg/dl (2.5-4.5); Sodium 132 mmol/L (136-145); Total Protein,Serum 5.6 g/dl (6.3-8.2)
[2024-01-02 06:31] LABS: Lactic Acid 1.6 mmol/L (0.7-2.1)
[2024-01-02 06:34] LABS: Basophils % 0.1 % (0.1-2.0); Hematocrit 35.1 % (37.0-47.0); Hemoglobin 11.5 g/dL (12.2-16.2); Lymphocytes # 0.5 K/mm3 (0.7-4.5); Lymphocytes % 7.1 % (10-50); Mean Corpuscular HGB Conc 32.9 g/dL (31.8-35.4); Mean Corpuscular Hemoglobin 29.7 pg (27.0-31.2); Mean Corpuscular Volume 90.2 fl (81-99); Mean Platelet Volume 8.6 fl (7.4-10.4); Monocytes # 0.1 K/mm3 (0.1-1.0); Monocytes % 1.7 % (1.7-9.3); Neutrophils # 6.2 K/mm3 (1.8-7.8); Platelet Count 141 K/mm3 (142-424); Red Blood Count 3.89 M/mm3 (4.20-5.40); Red Cell Distribution Width 14.7 % (11.5-17.5); White Blood Count 6.8 K/mm3 (4.8-10.8)
[2024-01-02 06:37] LABS: MANUAL DIFFERENTIAL MANUAL DIFFERENTIAL (MANUAL DIFF)
--- NOTE | 2024-01-02 07:34 | HMH.PHAINT1 ---
Pharmacy Intervention Comments: HOME MEDICATION LIST VERIFIED USING LIST FROM OUTPATIENT PHARMACY
--- NOTE | 2024-01-02 07:35 | US_ITS ---
FINAL REPORT CLINICAL HISTORY: ascites -- rt side -- 420 ml removed -- bonnie ROBBINS FINDINGS: ULTRASOUND-GUIDED PARACENTESIS. HISTORY: Ascites. ATTENDING PHYSICIAN: Dr. Lopez. PHYSICIAN REEL WINDER: Mirna Rm PA-C. PROCEDURE: Informed consent was obtained from the patient. The risks of the procedure were discussed with the patient prior to beginning. A timeout procedure was performed. Ultrasound guidance was utilized to localize a small pocket of fluid. The skin was marked appropriately. Patient was prepped and draped in the usual sterile fashion over the right lower quadrant. The skin was anesthetized with 1% lidocaine. Access to the fluid was obtained using a catheter access needle. Approximately 420 mL of clear yellow fluid was removed. A portion of the fluid was sent to laboratory for analysis. The patient tolerated the procedure well and left the department in good condition. Ultrasound guidance was utilized for this procedure. IMPRESSION: Technically successful ultrasound-guided right lower quadrant paracentesis, as described above. Reviewed, Interpreted and Dictated by Zechariah Lopez III, MD Transcribed by Mirna Rm PA-C Authenticated and . [facility]
--- NOTE | 2024-01-02 07:45 | CA_ITS ---
APPROVED REPORT EXAM: Comprehensive 2D, Doppler, and color-flow Echocardiogram Hearings Reporter: Cyn Haney RT(R) Ht: 5 ft 3 in Wt: 120lbs BSA: 1.56 BP: 137/75 mmHg Indications: CHF, COPD, ex smoker, edema, HTN, hyperlipidemia, dementia, liver cirrhosis 2D Dimensions LA Volume 19.10 mL LA Volume Index 12.24 mL/m2 (M/F) 16-34 M-Mode Dimensions RVDd 3.07 cm (0.9-2.6) LA Diam 3.84 cm (1.9-4.0) LVDd 4.88 cm (3.5-5.7) LVDs 3.49 cm (3.5-5.7) IVSd 0.82 cm (0.6-1.1) PWd 0.50 cm (0.6-1.1) EF (Teich) 54.80% FS 28.50% EDV (Teich) 111.70 mL TAPSE 2.06 (<1.7) ESV (Teich) 50.50 mL LV Diastology E Decel Time 147 (160-240 msec) E/A Ratio 0.74 Mitral Valve MV A Velocity 94.0 (40-130 cm/s) E/A Ratio 0.74 Tricuspid Valve TR P. Velocity 329.00 cm/s RAP Estimate 15.00 mmHg RVSP 58.20 mmHg Left Ventricle The left ventricle is normal size. The left ventricular systolic function is normal. The left ventricular ejection fraction is within the normal range. There is increased LV wall thickness. There is normal LV segmental wall motion. Transmitral Doppler flow pattern suggests impaired LV relaxation. LVEF is 60%. Right Ventricle The right ventricle is mildly dilated. The right ventricular systolic function is normal. Atria The left atrium is mildly dilated. The right atrium is mildly dilated. There is no Doppler evidence of interatrial shunt. Aortic Valve The aortic valve is mildly thickened. There is no aortic valvular stenosis. Mild aortic regurgitation. Mitral Valve The mitral valve leaflets are mildly thickened. No evidence of mitral valve stenosis. Trace mitral regurgitation. Tricuspid Valve The tricuspid valve leaflets are thin and pliable. Mild tricuspid regurgitation. RVSP is 40-45 mmHg. Pulmonic Valve The pulmonary valve is normal in structure. Trace pulmonic regurgitation. Great Vessels The aortic root is normal in size. The ascending aorta is not well-visualized. IVC is normal in size and collapses >50% with inspiration. Pericardium There is no pericardial effusion. Abdominal ascites is present. Other Information Study Quality: Fair Conclusion Normal biventricular systolic function. Mild RV dilation. Mild biatrial dilation. Mild AI, mild TR. Abdominal ascites is present. Electronically signed by : Giovanna Martinez MD 01/02/2024 21:43:36
[2024-01-02] MEDS: levETIRAcetam 500 MG TABLET 750 MG PO ×2 (08:55→20:24)
[2024-01-02] MEDS: FERROUS SULFATE 325MG TABLET 325 MG PO (08:57)
[2024-01-02] MEDS: MEMANTINE 10MG TABLET 5 MG PO (08:57)
[2024-01-02] MEDS: clonazePAM 1MG TABLET 1 MG PO (08:57)
[2024-01-02] MEDS: FUROSEMIDE 40MG/4ML VIAL 40 MG IV (08:58)
[2024-01-02] MEDS: CITALOPRAM 20MG TABLET 20 MG PO (08:58)
--- NOTE | 2024-01-02 09:45 | CARE MANAGER ---
Spoke with daughter this morning regarding discharge planning. She stated that her patient lives with her and normally requires some assistance with ADLS. She has a rollator but does not use it. She has had HH services before, but would not work with PT/OT. Plan is for home with daughter.
[2024-01-02 10:19] LABS: Lymphocytes % 10 % (10-50); Neutrophils % 89 % (42-76); Total Cells Counted 100
[2024-01-02 10:20] LABS: Platelet Estimate Slight Decrease; Poikilocytosis 1+
--- NOTE | 2024-01-02 10:46 | EXP.PHA.CONS ---
Pharmacy Consult Date: 01/02/24 Time: 10:46 Referring provider: DR. YUNG Reason for Consult:: VANCOMYCIN DOSING Allergies Allergy/AdvReac Type Severity Reaction Status Date / Time Penicillins Allergy Mild Verified 06/13/23 10:04 Home Medications Medication Instructions Recorded Confirmed Type clonazepam 1 mg tablet 1 mg PO HS 06/13/23 01/02/24 History ferrous sulfate 325 mg (65 mg 325 mg PO DAILY iron deficiency 07/03/23 01/02/24 Rx iron) tablet (FeroSul) #90 tabs omeprazole 20 mg capsule,delayed 20 mg PO DAILY #90 caps 07/03/23 01/02/24 Rx release aripiprazole 5 mg tablet 5 mg PO DAILY 01/02/24 01/02/24 History cholecalciferol (vitamin D3) 50 2,000 unit PO DAILY 01/02/24 01/02/24 History mcg (2,000 unit) tablet ergocalciferol (vitamin D2) 1,250 50,000 unit PO WEEKLY 01/02/24 01/02/24 History mcg (50,000 unit) capsule escitalopram oxalate 10 mg tablet 10 mg PO DAILY 01/02/24 01/02/24 History fluticasone furoate 100 1 inh inhalation DAILY 01/02/24 01/02/24 History mcg-vilanterol 25 mcg/dose inhalation powder (Breo Ellipta) levetiracetam 750 mg tablet 750 mg PO BID 01/02/24 01/02/24 History memantine 5 mg tablet 5 mg PO DAILY 01/02/24 01/02/24 History montelukast 10 mg tablet 10 mg PO HS 01/02/24 01/02/24 History New Prescriptions to Start Prescriptions: Height: 1.6 m Weight: 54.522 kg Laboratory Results:: Laboratory Results - last 24 hr 01/01/24 20:50: WBC 11.2 H, RBC 4.22, Hgb 12.5, Hct 37.5, MCV 89.0, MCH 29.7, MCHC 33.4, RDW 15.1, Plt Count 168, MPV 8.5, Neut % (Auto) 85.2 H, Lymph % (Auto) 6.9 L, [place] % (Auto) 7.0, Eos % (Auto) 0.7, Baso % (Auto) 0.3, Neut # (Auto) 9.6 H, Lymph # (Auto) 0.8, [place] # (Auto) 0.8, Eos # (Auto) 0.1, Baso # (Auto) 0.0, Total Counted 100, Neutrophils % (Manual) 87 H, Lymphocytes % (Manual) 8 L, Monocytes % (Manual) 5, Platelet Estimate Normal, Poikilocytosis 1+, PT 11.1, INR 0.99, APTT 31.8 H, Fibrinogen 347, D-Dimer 7.93 H, Sodium 132 L, Potassium 3.7, Chloride 106, Carbon Dioxide 25, Anion Gap 4.7 L, BUN 31 H, Creatinine 1.30 H, Estimated Creat Clear 33, Estimated GFR 40 L, Est GFR ([facility] Am) 49 L, Glucose 143 H, Lactate 1.3, Calcium 8.2 L, Total Bilirubin 0.9, AST 30, ALT 19, Alkaline Phosphatase 172 H, Ammonia 34 H, NT-Pro-B Natriuret Pep 3530 H, Total Protein 5.9 L, Albumin 2.8 L, Globulin 3.1, Albumin/Globulin Ratio 0.9 L, Lipase 135 01/02/24 05:55: Lactate 1.6 01/02/24 05:59: WBC 6.8 D, RBC 3.89 L, Hgb 11.5 L, Hct 35.1 L, MCV 90.2, MCH 29.7, MCHC 32.9, RDW 14.7, Plt Count 141 L, MPV 8.6, Neut % (Auto) 91.0 H, Lymph % (Auto) 7.1 L, [place] % (Auto) 1.7, Eos % (Auto) 0.0 L, Baso % (Auto) 0.1, Neut # (Auto) 6.2, Lymph # (Auto) 0.5 L, [place] # (Auto) 0.1, Eos # (Auto) 0.0, Baso # (Auto) 0.0, Total Counted 100, Neutrophils % (Manual) 89 H, Lymphocytes % (Manual) 10, Basophils % (Manual) 1.0, Platelet Estimate Slight decrease, Poikilocytosis 1+, Sodium 132 L, Potassium 4.0, Chloride 105, Carbon Dioxide 24, Anion Gap 7.0, BUN 33 H, Creatinine 1.20 H, Estimated Creat Clear 36, Estimated GFR 44 L, Est GFR ( Amer) 53 L, Glucose 158 H, Calcium 7.9 L, Phosphorus 4.5, Magnesium 1.9, Total Bilirubin 0.6, AST 30, ALT 23, Alkaline Phosphatase 136 H, Total Protein 5.6 L, Albumin 2.6 L, Globulin 3.0, Albumin/Globulin Ratio 0.9 L Medical History: Medical History (Updated 01/01/24 @ 22:56 by Wilbur Angela MD) CKD (chronic kidney disease) Portal hypertension Hemiplegia affecting right dominant side Secondary hyperaldosteronism Dementia Cirrhosis COPD (chronic obstructive pulmonary disease) Epilepsy Assessment and Plan Assessment and plan all Dx Assessment and Plan for all problems:: Pharmacokinetic dosing service Objective: Patient: Floor: Age: 73 yo Serum creatinine: 1.20 mg/dL Height: 63.0 Inches Weight (kg): 54.5 Assessment: IBW (kg): 52.40 Dosing wt(kg): 54.5 Estimated Creatinine clearance (ml/min): 34.5 CRCL method: Cockcroft and Gault using ibw(default). Drug selected: Vancomycin Loading dose (mg): Vd (liters): 43.6 (factor used: 0.8 L/kg) Sundeep (hr-1): 0.033 Half life (hrs): 21.00 CLvanco=?? 1.439 L/hr Recommended dose: 750 mg Interval: 24 hrs Infusion time (hrs): 2.0 Predicted peak (mcg/mL): 30.4 Predicted trough (mcg/mL): 14.71 Total body weight is being used for vancomycin dosing. Recommendations: Give Vancomycin 750 mg q 24 hrs with an expected Cpeak of 30.4 mcg/ml and an expected Ctrough of 14.71 mcg/ml AUC 0-24 /JESSICA Data: JESSICA 0.5 mcg/mL:?? AUC/JESSICA:? 1042.4 JESSICA 1.0 mcg/mL:?? AUC/JESSICA:? 521.2 --------- JESSICA 1.5 mcg/mL:?? AUC/JESSICA:? 347.5 JESSICA 2.0 mcg/mL:?? AUC/JESSICA:? 260.6 Thank you for the consult, will continue to follow. -ADALID PAUL, ALVAROD
[2024-01-02 10:48] LABS: Lactate Dehydrogenase 195 U/L (313-618)
[2024-01-02 12:47] LABS: POC Glucose,Bedside 112 (70-110)
[2024-01-02] MEDS: CEFEPIME HCL 2 GM in 0.9 % SODIUM CHLORIDE 100 ML IV ×2 (12:50→22:52)
[2024-01-02 13:20] LABS: Appearance,Body Fld. Normal; RBC,Body Fluid < 10 cells/uL (< 10 X 10^3); Source, Body Fld. Paracentesis Fluid; TNC,Body Fluid 708 cells/uL (< 1000); Volume,Body Fld. 420 mL
[2024-01-02 14:45] LABS: Mononuclear WBCs,Body Fluid 92 %; Polynuclear WBC,Body Fluid 8 %
--- NOTE | 2024-01-02 15:07 | EXP.EVENT.NO ---
Patient reevaluated by myself after admission. Family reports patient has new oxygen requirement 2 L which is recent development. Worried about possible hypervolemia secondary to CHF versus chronic liver disease. Fluid wave noted when examining patient's abdomen area. Paracentesis ordered to evaluate ascites. Echocardiogram to evaluate for CHF. Will continue IV Lasix to empirically treat hypervolemia. Watch closely for BUN/creatinine problem. Patient currently on vancomycin/cefepime for lower extremity cellulitis care. Family currently declines home health arrangements. If patient improving on the aforementioned therapy patient may be appropriate for hospital disposition within next 72 hours.
[2024-01-02] MEDS: MONTELUKAST SODIUM 10MG TAB 10 MG PO (17:09)
--- NOTE | 2024-01-02 17:36 | PC.NURSE ---
alert but pleasantly confused t/o shift. able to follow commands. requires 2lnc for o2 support. incontinent of bowel/bladder with brief/purewick in place.
[2024-01-02 18:26] LABS: POC Glucose,Bedside 99 (70-110)
[2024-01-02] MEDS: PANTOPRAZOLE 40MG TABLET 40 MG PO (20:24)
[2024-01-02 22:07] LABS: POC Glucose,Bedside 149 (70-110)
[2024-01-02 22:07] LABS: POC Glucose,Bedside 98 (70-110)
[2024-01-03] VITALS (16 sets, daily range): BP systolic 88–142; BP diastolic 55–86; PULSE 70–104; RESP 16–18; TEMP 36.4–36.6; O2SAT 85–98; BMI 21.8
[2024-01-03] MEDS: VANCOMYCIN HCL 750 MG in 0.9 % SODIUM CHLORIDE 250 ML 125 MG IV (01:35)
[2024-01-03] MEDS: HEPARIN SODIUM 5,000 UNIT/ML VIAL 5000 UNIT SQ ×3 (01:36→17:39)
--- NOTE | 2024-01-03 02:37 | XR_ITS ---
PROCEDURE INFORMATION: Exam: XR Chest Exam date and time: 01/03/2024 2:53 AM Age: 73 years old Clinical indication: Shortness of breath; Additional info: SOB TECHNIQUE: Imaging protocol: Radiologic exam of the chest. Views: 1 view. COMPARISON: CT ANGIO CHEST PE PROTOCOL 01/01/2024 10:20 PM FINDINGS: Lungs: The lungs are hyperlucent consistent with COPD. No focal infiltrates identified. Pleural spaces: Unremarkable. No pleural effusion. No pneumothorax. Heart/Mediastinum: Mild cardiomegaly. Bones/joints: Unremarkable. IMPRESSION: Mild cardiomegaly. The lungs are hyperlucent consistent with COPD. No focal infiltrates identified.
[2024-01-03] MEDS: IPRATROPIUM/ALBUTEROL 3 ML NEB IH ×4 (02:51→18:18)
[2024-01-03] MEDS: FUROSEMIDE 40MG/4ML VIAL 40 MG IV ×2 (03:40→08:38)
--- NOTE | 2024-01-03 05:01 | PC.NURSE ---
Patient has rested on and off this shift. Patient has developed a dry cough this shift that i did not notices at the beginning of shift. the provider was notified of the change in status and the patient lung sounds that had progressively gotten worse this shift. See orders that were placed. No other acute event. Patient did have a large BM and a total bed and partial bath was done. remains on 2L NC
[2024-01-03 05:45] LABS: POC Glucose,Bedside 89 (70-110)
[2024-01-03 08:03] LABS: Basophils # 0.1 K/mm3 (0-0.2); Basophils % 0.5 % (0.1-2.0); Eosinophils # 0.1 K/mm3 (0.0-0.4); Eosinophils % 0.5 % (0.1-12.0); Hematocrit 41.4 % (37.0-47.0); Hemoglobin 13.3 g/dL (12.2-16.2); Lymphocytes % 9.9 % (10-50); Mean Corpuscular HGB Conc 32.3 g/dL (31.8-35.4); Mean Corpuscular Hemoglobin 29.5 pg (27.0-31.2); Mean Corpuscular Volume 91.4 fl (81-99); Monocytes # 0.7 K/mm3 (0.1-1.0); Neutrophils # 8.4 K/mm3 (1.8-7.8); Neutrophils % 82.2 % (37.0-80.0); Platelet Count 221 K/mm3 (142-424); Red Blood Count 4.53 M/mm3 (4.20-5.40); Red Cell Distribution Width 14.9 % (11.5-17.5); White Blood Count 10.3 K/mm3 (4.8-10.8)
[2024-01-03] MEDS: clonazePAM 1MG TABLET 1 MG PO (08:37)
[2024-01-03] MEDS: CITALOPRAM 20MG TABLET 20 MG PO (08:37)
[2024-01-03] MEDS: levETIRAcetam 500 MG TABLET 750 MG PO ×2 (08:37→20:23)
[2024-01-03] MEDS: MEMANTINE 10MG TABLET 5 MG PO (08:38)
[2024-01-03] MEDS: FERROUS SULFATE 325MG TABLET 325 MG PO (08:38)
[2024-01-03] MEDS: ARIPiprazole 10MG TABLET 5 MG PO (08:41)
[2024-01-03 08:58] LABS: Alanine Aminotransferase 19 U/L (12-78); Albumin Level 2.8 g/dl (3.5-5.0); Albumin/Globulin Ratio 0.9 (1.1-1.8); Alkaline Phosphatase 162 U/L (38-126); Aspartate Amino Transferase 31 U/L (14-36); Bilirubin,Total 0.7 mg/dl (0.2-1.3); Blood Urea Nitrogen 37 mg/dl (7-17); Calcium 8.2 mg/dl (8.4-10.2); Carbon Dioxide 26 mmol/L (22.0-30.0); Chloride 104 mmol/L (98-107); Creatinine Clearance Estimated 34 mL/min (50-200); Estimated Glomerular Filt Rate 40 ml/min (>60); GFR (African American) 49 ML/MIN (>60); Glucose 95 mg/dl (74-100); Magnesium 1.9 mg/dl (1.6-2.3); Sodium 134 mmol/L (136-145); Total Protein,Serum 5.8 g/dl (6.3-8.2)
[2024-01-03] MEDS: CHOLECALCIFEROL 1,000 UNITS (25MCG) TABLET 50 MCG PO (09:47)
--- NOTE | 2024-01-03 10:35 | EXP.PN ---
Subjective *Date: 01/03/24 *Time: 10:35 Interval history: The patient is seen and examined at bedside today. I am accompanied by her nurse Chaitanya. Nursing staff report that she remains afebrile with stable vital signs and saturating appropriately on 2 L of oxygen. Her morning labs identified a normal CBC with a WBC of 10.3, hemoglobin 13, platelet count 221. Her sodium is 134 and the rest of her electrolytes are normal. Her BUN is 37 and her creatinine is 1.3 (Baseline is 0.8). Her glucose trend is under 125. Her LFTs are normal. Her morning chest x-ray identifies COPD with no focal infiltrates, no pleural effusion and cardiomegaly. Her echocardiogram identifies EF 60% with AR and RVSP 40 mmHg. Exam Data for Last 24 hours Vital signs and Labs for Last 24 Hours: Temp Pulse Resp BP Pulse Ox O2 Del Method O2 Flow Rate 97.6 F 100 H 16 139/84 96 Nasal Cannula 2 01/03/24 07:47 01/03/24 08:00 01/03/24 07:47 01/03/24 07:47 01/03/24 07:47 01/03/24 07:47 01/03/24 07:47 Laboratory Results - last 24 hr 01/02/24 05:10: POC Glucose 149 H 01/02/24 05:59: Lactate Dehydrogenase 195 L 01/02/24 11:30: Fluid Source Paracentesis fluid, Fluid Volume 420, Fluid Appearance Normal, Fluid RBC (Auto) < 10, Fld Tot Nucleated Cell 708, Fld Polynuclear WBCs % 8, Fld Mononuclear WBCs % 92 01/02/24 12:18: POC Glucose 112 H 01/02/24 17:06: POC Glucose 99 01/02/24 21:08: POC Glucose 98 01/03/24 05:30: POC Glucose 89 01/03/24 06:43: WBC 10.3 D, RBC 4.53, Hgb 13.3, Hct 41.4, MCV 91.4, MCH 29.5, MCHC 32.3, RDW 14.9, Plt Count 221 D, MPV 8.0, Neut % (Auto) 82.2 H, Lymph % (Auto) 9.9 L, Wilkinson % (Auto) 7.0, Eos % (Auto) 0.5, Baso % (Auto) 0.5, Neut # (Auto) 8.4 H, Lymph # (Auto) 1.0, Wilkinson # (Auto) 0.7, Eos # (Auto) 0.1, Baso # (Auto) 0.1, Sodium 134 L, Potassium 4.0, Chloride 104, Carbon Dioxide 26, Anion Gap 8.0, BUN 37 H, Creatinine 1.30 H, Estimated Creat Clear 34, Estimated GFR 40 L, Est GFR ( Amer) 49 L, Glucose 95, Calcium 8.2 L, Magnesium 1.9, Total Bilirubin 0.7, AST 31, ALT 19, Alkaline Phosphatase 162 H, Total Protein 5.8 L, Albumin 2.8 L, Globulin 3.0, Albumin/Globulin Ratio 0.9 L I & O for Last 24 hours: Intake & Output 12/31/23 01/01/24 01/02/24 01/03/24 23:59 23:59 23:59 23:59 Intake Total 1342 / 1442 220 / 220 Output Total 251 / 451 200 / 200 Balance 1091 / 991 Weight 54.431 kg 54.522 kg 55.837 kg Microbiology Reports for the Last 24 Hours: Microbiology 01/02/24 11:30 Ascites Fluid Gram Stain - Final Constitutional Constitutional: no acute distress, chronically ill appearing and cooperative *Routine HEENT Exam Head: Present normocephalic Eye: Present EOMI and PERRL ENT: Present mucous membranes moist *Routine Neck Exam Neck: Present supple; Absent JVD or lymphadenopathy *Routine Respiratory Exam Respiratory: Present rhonchi, normal respiratory effort and symmetric chest movement; Absent respiratory distress *Routine Cardiovascular Exam Cardiovascular: Present RRR; Absent murmur *Routine Abdominal Exam Abdominal: Present soft; Absent tenderness *Routine Extremities Exam Extremities: Present normal capillary refill; Absent edema *Routine Skin Exam Skin: Present warm; Absent rash *Routine Neurological Exam Neurological: Present alert; Absent oriented X3, sensory deficit or motor deficit Routine Psychiatric Exam Psychiatric: Present cooperative Assessment and Plan *Assessment and plan (1) Cirrhosis of liver with ascites: Status: Acute Category: Medical Code(s): K74.60 - Unspecified cirrhosis of liver; R18.8 - Other ascites (2) Splenomegaly: Status: Acute Category: Medical Code(s): R16.1 - Splenomegaly, not elsewhere classified (3) Acute hypoxic respiratory failure: Status: Acute Category: Medical Code(s): J96.01 - Acute respiratory failure with hypoxia (4) History of tobacco abuse: Status: Acute Category: Social Hx Code(s): Z87.891 - Personal history of nicotine dependence (5) MARYLU (acute kidney injury): Status: Acute Category: Medical Code(s): N17.9 - Acute kidney failure, unspecified (6) Chronic venous stasis: Status: Acute Category: Medical Code(s): I87.8 - Other specified disorders of veins (7) Dementia: Status: Acute Qualifiers: Dementia type: Alzheimer's Alzheimer's disease onset: early onset Dementia severity: severe Dementia behavioral or psychological symptom: with anxiety Qualified Code(s): G30.0 - Alzheimer's disease with early onset; F02.C4 - Dementia in other diseases classified elsewhere, severe, with anxiety Category: Medical Code(s): F03.90 - Unspecified dementia, unspecified severity, without behavioral disturbance, psychotic disturbance, mood disturbance, and anxiety Plan 73-year-old female with dementia, MILAN cirrhosis with ascites and portal hypertension presenting MELD-Na=15 with shortness of air and lower extremity chronic venous stasis changes. Cirrhosis with ascites Portal hypertension CT abdomen and pelvis (01/01/2024) with hepatic cirrhosis, no liver mass, splenomegaly with portal hypertension and ascites Paracentesis (01/02/2024) Loop diuretic therapy Beta-kevin therapy Aldosterone antagonist Sodium and fluid restriction Accurate I's and O's Acute hypoxic respiratory failure COPD exacerbation Tobacco use history reviewed Pulse oximetry monitoring Oxygen therapy to maintain appropriate oxygen saturations Currently requiring 2 L via nasal cannula Chest x-ray with COPD and cardiomegaly CTA chest with COPD Noa/Kwna inhalation therapy ICS therapy Doxycycline 100 mg p.o. twice daily Chronic venous stasis Concerns for peripheral vascular disease Antiplatelet therapy Statin therapy Acute kidney injury Baseline creatinine (0.8) Loop diuretic therapy noted CT contrast imaging noted Trending electrolytes and creatinine Avoiding NSAIDs Advanced dementia Frailty Poor prognoses identified VTE prophylaxis: Heparin CODE STATUS: DNR/DNI POA: Lu Becerril-Daughter The patient is hospitalized day 1 with above diagnoses complicated by her memory impairment. Her chronic comorbidities are identified and a poor prognosis is assessed. Case management is assisting with discharge planning. Barriers to discharge currently include assessing volume status, oxygen needs and ambulatory ability. Expected date of discharge January 04, 2024 pending ancillary service evaluations. I spent 50 minutes on this encounter, before, during and after the visit, evaluating the patient, reviewing records and writing orders. Time included discussing treatment recommendations, providing medical education and potential adverse events of agreed to therapies.
[2024-01-03 12:19] LABS: Adenovirus F 40/41, stool Not Detected (NotDetected); Astrovirus Not Detected (NotDetected); Campylobacter Not Detected (NotDetected); Clostridium Difficile A/B, PCR Not Detected (NotDetected); Cryptosporidium Not Detected (NotDetected); Cyclospora Cayetanesis Not Detected (NotDetected); Entamoeba histolytica Not Detected (NotDetected); Enteroaggregative E coli Not Detected (NotDetected); Enteropathogenic E coli Not Detected (NotDetected); Enterotoxigenic E coli Not Detected (NotDetected); Giardia lamblia Not Detected (NotDetected); Norovirus Not Detected (NotDetected); Plesimonas Shigalloides, PCR Not Detected (NotDetected); Rotavirus A Not Detected (NotDetected); Salmonella, PCR Not Detected (NotDetected); Sapovirus Not Detected (NotDetected); Shiga-like toxin E coli Not Detected (NotDetected); Shigella Enterovasive E coli Not Detected (NotDetected); Vibrio Cholerae Not Detected (NotDetected); Vibrio, PCR Not Detected (NotDetected); Yersinia Entercolitica, PCR Not Detected (NotDetected)
[2024-01-03] MEDS: SPIRONOLACTONE 25MG TABLET 25 MG PO (12:29)
[2024-01-03] MEDS: ASPIRIN 81MG CHEWABLE TABLET 81 MG PO (12:29)
[2024-01-03] MEDS: DOXYCYCLINE HYCL 100 MG TABLET PO ×2 (12:29→20:23)
[2024-01-03] MEDS: CARVEDILOL 3.125MG TABLET 3.125 MG PO ×2 (12:29→20:23)
[2024-01-03] MEDS: CALCIUM CARBONATE 500MG CHEWTAB 500 MG PO ×2 (12:30→20:22)
[2024-01-03 12:44] LABS: POC Glucose,Bedside 138 (70-110)
[2024-01-03] MEDS: MONTELUKAST SODIUM 10MG TAB 10 MG PO (17:40)
[2024-01-03 20:20] LABS: POC Glucose,Bedside 124 (70-110)
[2024-01-03] MEDS: ATORVASTATIN 40MG TABLET 40 MG PO (20:22)
[2024-01-03] MEDS: FUROSEMIDE 20MG TABLET 20 MG PO (20:23)
[2024-01-03] MEDS: PANTOPRAZOLE 40MG TABLET 40 MG PO (20:24)
[2024-01-04] VITALS (14 sets, daily range): BP systolic 101–138; BP diastolic 49–76; PULSE 60–90; RESP 16–18; TEMP 36.4–36.7; O2SAT 85–100; BMI 22.4
[2024-01-04] MEDS: HEPARIN SODIUM 5,000 UNIT/ML VIAL 5000 UNIT SQ ×3 (01:17→18:17)
[2024-01-04] MEDS: ACETAMINOPHEN 325MG TAB 650 MG PO (05:37)
[2024-01-04 05:46] LABS: POC Glucose,Bedside 100 (70-110)
--- NOTE | 2024-01-04 06:01 | PC.NURSE ---
Pt has rested on and off throughout the night and has tolerated 2L O2. Pt is alert to self. Pt complained of generalized pain and was treated per MAR. Pt has not had any other complaints, call light within reach.
[2024-01-04] MEDS: IPRATROPIUM/ALBUTEROL 3 ML NEB IH ×4 (06:08→23:06)
[2024-01-04] MEDS: FLUTICASONE/SALMETEROL 250/50MCG DISKUS 1 PUFF IH ×2 (06:12→18:21)
[2024-01-04 07:51] LABS: Alanine Aminotransferase 14 U/L (12-78); Albumin Level 2.4 g/dl (3.5-5.0); Albumin/Globulin Ratio 0.8 (1.1-1.8); Alkaline Phosphatase 131 U/L (38-126); Anion Gap 7.2 mEq/L (5-15); Aspartate Amino Transferase 24 U/L (14-36); Bilirubin,Total 0.8 mg/dl (0.2-1.3); Blood Urea Nitrogen 46 mg/dl (7-17); Calcium 8.1 mg/dl (8.4-10.2); Carbon Dioxide 26 mmol/L (22.0-30.0); Chloride 101 mmol/L (98-107); Creatinine Clearance Estimated 30 mL/min (50-200); Estimated Glomerular Filt Rate 34 ml/min (>60); GFR (African American) 41 ML/MIN (>60); Globulin 2.9 g/dL (1.3-3.2); Glucose 84 mg/dl (74-100); Magnesium 1.7 mg/dl (1.6-2.3); Potassium 4.2 mmoL/L (3.5-5.1); Sodium 130 mmol/L (136-145); Total Protein,Serum 5.3 g/dl (6.3-8.2)
[2024-01-04 08:03] LABS: Basophils % 0.3 % (0.1-2.0); Eosinophils # 0.1 K/mm3 (0.0-0.4); Eosinophils % 1.4 % (0.1-12.0); Hematocrit 35.1 % (37.0-47.0); Lymphocytes # 1.2 K/mm3 (0.7-4.5); Lymphocytes % 13.5 % (10-50); Mean Corpuscular HGB Conc 33.2 g/dL (31.8-35.4); Mean Corpuscular Hemoglobin 30.3 pg (27.0-31.2); Mean Corpuscular Volume 91.3 fl (81-99); Mean Platelet Volume 8.7 fl (7.4-10.4); Monocytes # 0.9 K/mm3 (0.1-1.0); Monocytes % 9.7 % (1.7-9.3); Neutrophils # 6.6 K/mm3 (1.8-7.8); Neutrophils % 75.1 % (37.0-80.0); Platelet Count 176 K/mm3 (142-424); Red Blood Count 3.84 M/mm3 (4.20-5.40); Red Cell Distribution Width 14.9 % (11.5-17.5); White Blood Count 8.8 K/mm3 (4.8-10.8)
[2024-01-04 08:21] LABS: Hemoglobin 11.5 g/dL (12.2-16.2)
[2024-01-04] MEDS: CALCIUM CARBONATE 500MG CHEWTAB 500 MG PO ×3 (09:12→20:43)
[2024-01-04] MEDS: ASPIRIN 81MG CHEWABLE TABLET 81 MG PO (09:12)
[2024-01-04] MEDS: CARVEDILOL 3.125MG TABLET 3.125 MG PO ×2 (09:12→20:44)
[2024-01-04] MEDS: DOXYCYCLINE HYCL 100 MG TABLET PO ×2 (09:13→20:44)
[2024-01-04] MEDS: FERROUS SULFATE 325MG TABLET 325 MG PO (09:13)
[2024-01-04] MEDS: SPIRONOLACTONE 25MG TABLET 25 MG PO (09:13)
[2024-01-04] MEDS: levETIRAcetam 500 MG TABLET 750 MG PO ×2 (09:13→20:44)
[2024-01-04] MEDS: CITALOPRAM 20MG TABLET 20 MG PO (09:13)
[2024-01-04] MEDS: ARIPiprazole 10MG TABLET 5 MG PO (09:14)
[2024-01-04] MEDS: MEMANTINE 10MG TABLET 5 MG PO (09:14)
[2024-01-04] MEDS: CHOLECALCIFEROL 1,000 UNITS (25MCG) TABLET 50 MCG PO (09:14)
[2024-01-04] MEDS: clonazePAM 1MG TABLET 1 MG PO (09:18)
--- NOTE | 2024-01-04 09:48 | EXP.PN ---
Subjective *Date: 01/04/24 *Time: 09:48 Interval history: The patient is seen and examined at bedside today. I am accompanied by her nurse Chaitanya. Nursing staff report that she remains afebrile with stable vital signs and saturating appropriately on 2 L of oxygen. The patient is requesting to get out of bed. PT and OT consults have been placed. Her morning CBC identifies a normal white blood cell count 8.8 with stable hemoglobin 11.5 and normal platelets. Her basic metabolic profile identifies a chronically low sodium secondary to her cirrhosis with normal potassium chloride and carbon dioxide. Her BUN is 46 and her creatinine is 1.5 (baseline 0.8). Her glucose trend is under 150. Her magnesium is 1.7 and being replaced. Her LFTs continue to be normal. Exam Data for Last 24 hours Vital signs and Labs for Last 24 Hours: Temp Pulse Resp BP Pulse Ox O2 Del Method O2 Flow Rate 97.9 F 90 18 112/74 91 L Nasal Cannula 2 01/04/24 07:46 01/04/24 08:00 01/04/24 07:46 01/04/24 07:46 01/04/24 07:46 01/04/24 08:59 01/04/24 08:59 Laboratory Results - last 24 hr 01/03/24 06:00: Stl Aeromonas (PCR) Not detected, Stl C. cayetanensis PCR Not detected, Stool Rotavirus (PCR) Not detected, Stl Adenov F 40/41 PCR Not detected, Stool Astrovirus (PCR) Not detected, Stool Campylobacter PCR Not detected, Stl C.difficile Tox PCR Not detected, Stool Cryptosporidium PCR Not detected, Stl E.coli Shiga Tox PCR Not detected, Stool E coli O157 PCR Not detected, Stl Enterotoxigenic E PCR Not detected, Stool EPEC (PCR) Not detected, Stool EAEC (PCR) Not detected, Stl E. histolytica PCR Not detected, Stool Giardia Lamblia PCR Not detected, Stool Salmonella PCR Not detected, Stool Sapovirus (PCR) Not detected, Stl P. shigelloides PCR Not detected, Stl Shigella/EIEC PCR Not detected, St Y.enterocolitica PCR Not detected, Stool Vibrio (PCR) Not detected, Stl Vibrio cholerae PCR Not detected, Stl Norovirus GI/GII PCR Not detected 01/03/24 12:36: POC Glucose 138 H 01/03/24 20:12: POC Glucose 124 H 01/04/24 05:34: POC Glucose 100 01/04/24 06:30: WBC 8.8, RBC 3.84 L, Hgb 11.5 L D, Hct 35.1 L, MCV 91.3, MCH 30.3, MCHC 33.2, RDW 14.9, Plt Count 176, MPV 8.7, Neut % (Auto) 75.1, Lymph % (Auto) 13.5, Prowers % (Auto) 9.7 H, Eos % (Auto) 1.4, Baso % (Auto) 0.3, Neut # (Auto) 6.6, Lymph # (Auto) 1.2, Prowers # (Auto) 0.9, Eos # (Auto) 0.1, Baso # (Auto) 0.0, Sodium 130 L, Potassium 4.2, Chloride 101, Carbon Dioxide 26, Anion Gap 7.2, BUN 46 H, Creatinine 1.50 H, Estimated Creat Clear 30, Estimated GFR 34 L, Est GFR ( Amer) 41 L, Glucose 84, Calcium 8.1 L, Magnesium 1.7 D, Total Bilirubin 0.8, AST 24, ALT 14 D, Alkaline Phosphatase 131 H, Total Protein 5.3 L, Albumin 2.4 L D, Globulin 2.9, Albumin/Globulin Ratio 0.8 L I & O for Last 24 hours: Intake & Output 01/01/24 01/02/24 01/03/24 01/04/24 23:59 23:59 23:59 23:59 Intake Total 1342 / 1442 740 / 990 490 / 490 Output Total 251 / 451 200 / 200 0 / 0 Balance 1091 / 991 540 / 790 490 / 490 Weight 54.431 kg 54.522 kg 55.837 kg 57.289 kg Microbiology Reports for the Last 24 Hours: Microbiology 01/02/24 11:30 Ascites Fluid Gram Stain - Final 01/02/24 11:30 Ascites Fluid Body Fluid Culture - Preliminary NO GROWTH AFTER 24 HOURS Constitutional Constitutional: no acute distress, chronically ill appearing and cooperative *Routine HEENT Exam Head: Present normocephalic Eye: Present EOMI and PERRL ENT: Present mucous membranes moist *Routine Neck Exam Neck: Present supple; Absent JVD or lymphadenopathy *Routine Respiratory Exam Respiratory: Present rhonchi, normal respiratory effort and symmetric chest movement; Absent respiratory distress *Routine Cardiovascular Exam Cardiovascular: Present RRR; Absent murmur *Routine Abdominal Exam Abdominal: Present soft; Absent tenderness *Routine Extremities Exam Extremities: Present normal capillary refill; Absent edema *Routine Skin Exam Skin: Present warm; Absent rash *Routine Neurological Exam Neurological: Present alert; Absent oriented X3, sensory deficit or motor deficit Routine Psychiatric Exam Psychiatric: Present cooperative Assessment and Plan *Assessment and plan (1) Cirrhosis of liver with ascites: Status: Acute Category: Medical Code(s): K74.60 - Unspecified cirrhosis of liver; R18.8 - Other ascites (2) Splenomegaly: Status: Acute Category: Medical Code(s): R16.1 - Splenomegaly, not elsewhere classified (3) Acute hypoxic respiratory failure: Status: Acute Category: Medical Code(s): J96.01 - Acute respiratory failure with hypoxia (4) History of tobacco abuse: Status: Acute Category: Social Hx Code(s): Z87.891 - Personal history of nicotine dependence (5) MARYLU (acute kidney injury): Status: Acute Category: Medical Code(s): N17.9 - Acute kidney failure, unspecified (6) Chronic venous stasis: Status: Acute Category: Medical Code(s): I87.8 - Other specified disorders of veins (7) Dementia: Status: Acute Qualifiers: Dementia type: Alzheimer's Alzheimer's disease onset: early onset Dementia severity: severe Dementia behavioral or psychological symptom: with anxiety Qualified Code(s): G30.0 - Alzheimer's disease with early onset; F02.C4 - Dementia in other diseases classified elsewhere, severe, with anxiety Category: Medical Code(s): F03.90 - Unspecified dementia, unspecified severity, without behavioral disturbance, psychotic disturbance, mood disturbance, and anxiety Plan 73-year-old female with dementia, MILAN cirrhosis with ascites and portal hypertension presenting MELD-Na=15 with shortness of air and lower extremity chronic venous stasis changes. Cirrhosis with ascites Portal hypertension Hyperammonemia CT abdomen and pelvis (01/01/2024) with hepatic cirrhosis, no liver mass, splenomegaly with portal hypertension and ascites Paracentesis (01/02/2024) Loop diuretic therapy Beta-kevin therapy Aldosterone antagonist Rifaximin therapy Sodium and fluid restriction Accurate I's and O's Acute hypoxic respiratory failure COPD exacerbation Tobacco use history reviewed Pulse oximetry monitoring Oxygen therapy to maintain appropriate oxygen saturations Currently requiring 2 L via nasal cannula Chest x-ray with COPD and cardiomegaly CTA chest with COPD Noa/Kwan inhalation therapy ICS therapy Doxycycline 100 mg p.o. twice daily Chronic venous stasis Concerns for peripheral vascular disease Antiplatelet therapy Statin therapy Acute kidney injury Baseline creatinine (0.8) Loop diuretic therapy noted CT contrast imaging noted Trending electrolytes and creatinine Avoiding NSAIDs Advanced dementia Frailty Poor prognoses identified VTE prophylaxis: Heparin CODE STATUS: DNR/DNI POA: Lu Becerril-Daughter The patient is hospitalized day 2 with above diagnoses complicated by her memory impairment. Her chronic co-morbidities are identified and a poor prognosis is assessed. Case management is assisting with discharge planning. Barriers to discharge currently include assessing volume status, oxygen needs and ambulatory ability. Expected date of discharge January 05, 2024 pending ancillary service evaluations. I spent 50 minutes on this encounter, before, during and after the visit, evaluating the patient, reviewing records and writing orders. Time included discussing treatment recommendations, providing medical education and potential adverse events of agreed to therapies.
[2024-01-04] MEDS: MAGNESIUM SULFATE IN WATER 2 GM/50 ML PIGGYBACK IV (10:18)
[2024-01-04] MEDS: RIFAXIMIN 550MG TABLET 550 MG PO ×2 (10:26→20:44)
[2024-01-04 10:56] LABS: POC Glucose,Bedside 106 (70-110)
--- NOTE | 2024-01-04 12:39 | HMH.PTEV ---
Physical Therapy Evaluation Rehab PT IP Evaluation Start: 01/03/24 11:07 Freq: ONCE Status: Active Protocol: Document 01/04/24 12:32 ALONZO (Rec: 01/04/24 12:39 ALONZO [email or web address]) Subjective/History History History Per H&P: 73-year-old female history of hypertension, hyperlipidemia, medication induced hepatic cirrhosis, CKD, dementia presenting with bruising bilateral upper extremities, abdominal swelling. Patient has significant dementia, unable to provide history. History is provided by ER physician and documentation Subjective Subjective Pt is a questionable historian : Per pt report: lives with family in single-story home. Used RW to ambulate with IND. Confirm history with CM. Rehab PT IP Eval Objective Appearance Patient Behavior Appropriate,Confused Patient Orientation Person Difficulty following instructions mild Speech Pattern Poor Articulation Ambulation Patient Able to Ambulate Yes Ambulation Observation IP General Gait Pattern Observation Narrow Based Gait Ambulation Distance (feet) 8 Ambulation Assistive Device None Ambulation Ability Minimal x 1 (25% assist) Balance Ability to Arise Able, uses arms to help Sitting Balance Steady, safe Standing Balance Unsteady Transfers Bed Transfer Ability Minimal x 1 (25% assist) Sit to Stand Bed Transfer Ability Minimal x 1 (25% assist) Rehab PT IP prob,goals,plan Problems Date of Evaluation: 01/04/24 PT IP Problems Bed Mobility,Transfers,Gait, Balance,Self care,Safety Rehab Potential Rehab Potential Good Equipment Needs Assistive Devices Rolling / Wheeled Walker Plan PT Intervention Plan Bed Mobility,Transfers,Gait, Balance,Safety,Therapeutic Exercise Other Intervention Plan 1-2 times PT Plan Frequency Daily Duration LOS Discharge Goals Bed Transfer Ability Supervision/Stand by Sit to Stand Chair Transfer Ability Contact Guard/Hand Hold Ambulation Assistive Device Rolling Walker Ambulation Distance (feet) 15 Discharge Plan PT Discharge Plan Initial physical therapy evaluation performed. Patient presents below baseline at this time in functional mobility, transfers, and strength. PT unsure of pt's history d/t pt's confused state. If pt has family at home who care for her like she reported, Pt safe to d/c home with 24/7 family care. If pt is unable to have that level of care, pt not safe to return home alone d/t current level of functional mobility. PT recommending short-term rehabilitation stay upon d/c from [facility] if pt does not have 24/7 care. Pt would benefit from skilled PT while at [facility] to prevent further functional decline and maximize safety with mobility. Eval Complexity Eval Charge Codes 36833 - Moderate Complexity PHYSICIAN CERTIFICATION: I certify the specified therapy services for Sarah Prakash are required, authorized, and reviewed every 30 days.
--- NOTE | 2024-01-04 15:46 | PC.NURSE ---
pt has still remained confused throughout shift. pt has remained on 2L nc. pt did get a bath and linen change this shift. pt has been resting in bed off anf on this shift. no new orders at this time. call light within reach.
[2024-01-04 17:01] LABS: POC Glucose,Bedside 127 (70-110)
[2024-01-04] MEDS: MONTELUKAST SODIUM 10MG TAB 10 MG PO (18:17)
[2024-01-04 19:56] LABS: Microscopic, Urine URINE MICROSCOPIC (MICROSCOPIC)
[2024-01-04 19:58] LABS: Blood, Urine 3+ (Negative); Glucose,Urine (UA) Negative (Negative); Ketones,Urine Negative (Negative); Leukocyte Esterase,Urine TRACE (Negative); Nitrate,Urine POSITIVE (Negative); PH,Urine 7.5 (5.0-8.5); Protein,Urine 3+ (Negative)
[2024-01-04 20:04] LABS: Appearance,Urine Turbid (Clear); Bilirubin,Urine 2+ (Negative); Color,Urine Amber (Yellow)
[2024-01-04 20:12] LABS: Bacteria,Urine 4+ /lpf
[2024-01-04 20:21] LABS: POC Glucose,Bedside 139 (70-110)
[2024-01-04] MEDS: ATORVASTATIN 40MG TABLET 40 MG PO (20:43)
[2024-01-04] MEDS: PANTOPRAZOLE 40MG TABLET 40 MG PO (20:44)
[2024-01-05] VITALS (9 sets, daily range): BP systolic 116–142; BP diastolic 67–76; PULSE 70–85; RESP 16–22; TEMP 36.4–36.7; O2SAT 82–99; BMI 22.2
[2024-01-05 00:08] LABS: Albumin, Body Fluid 0.5 g/dL (Not Estab.); Glucose, Body Fluid 134 mg/dL (.); LD, Body Fluid 75 IU/L (.)
[2024-01-05] MEDS: HEPARIN SODIUM 5,000 UNIT/ML VIAL 5000 UNIT SQ ×2 (01:10→09:00)
--- NOTE | 2024-01-05 05:29 | PC.NURSE ---
Patient has slept on and off throughout the night and remains only alert to self. She has tolerated 2L O2. She has not complained of any pain this shift and has no other complaints at this time. Call light within reach.
[2024-01-05 05:53] LABS: POC Glucose,Bedside 106 (70-110)
[2024-01-05] MEDS: FLUTICASONE/SALMETEROL 250/50MCG DISKUS 1 PUFF IH (06:23)
[2024-01-05] MEDS: IPRATROPIUM/ALBUTEROL 3 ML NEB IH (06:23)
[2024-01-05 06:51] LABS: Basophils % 0.4 % (0.1-2.0); Chloride 104 mmol/L (98-107); Eosinophils # 0.2 K/mm3 (0.0-0.4); Hematocrit 33.7 % (37.0-47.0); Hemoglobin 10.9 g/dL (12.2-16.2); Lymphocytes % 13.1 % (10-50); Mean Corpuscular HGB Conc 32.5 g/dL (31.8-35.4); Mean Corpuscular Hemoglobin 29.1 pg (27.0-31.2); Mean Corpuscular Volume 89.6 fl (81-99); Mean Platelet Volume 7.8 fl (7.4-10.4); Monocytes # 0.6 K/mm3 (0.1-1.0); Monocytes % 7.5 % (1.7-9.3); Neutrophils # 5.7 K/mm3 (1.8-7.8); Platelet Count 153 K/mm3 (142-424); Potassium 4.1 mmoL/L (3.5-5.1); Red Blood Count 3.76 M/mm3 (4.20-5.40); Red Cell Distribution Width 15.1 % (11.5-17.5); Sodium 129 mmol/L (136-145); White Blood Count 7.4 K/mm3 (4.8-10.8)
[2024-01-05 06:53] LABS: Alanine Aminotransferase 14 U/L (12-78); Aspartate Amino Transferase 26 U/L (14-36); Blood Urea Nitrogen 47 mg/dl (7-17); Creatinine Clearance Estimated 35 mL/min (50-200); Estimated Glomerular Filt Rate 40 ml/min (>60); GFR (African American) 49 ML/MIN (>60)
[2024-01-05 06:54] LABS: Albumin Level 2.2 g/dl (3.5-5.0); Albumin/Globulin Ratio 0.8 (1.1-1.8); Alkaline Phosphatase 139 U/L (38-126); Anion Gap 5.1 mEq/L (5-15); Bilirubin,Total 0.6 mg/dl (0.2-1.3); Calcium 8.3 mg/dl (8.4-10.2); Carbon Dioxide 24 mmol/L (22.0-30.0); Globulin 2.9 g/dL (1.3-3.2); Glucose 112 mg/dl (74-100); Total Protein,Serum 5.1 g/dl (6.3-8.2)
[2024-01-05 07:42] LABS: Magnesium 2.1 mg/dl (1.6-2.3)
[2024-01-05] MEDS: clonazePAM 1MG TABLET 1 MG PO (08:48)
[2024-01-05] MEDS: RIFAXIMIN 550MG TABLET 550 MG PO (08:49)
[2024-01-05] MEDS: CALCIUM CARBONATE 500MG CHEWTAB 500 MG PO ×2 (08:49→13:33)
[2024-01-05] MEDS: ASPIRIN 81MG CHEWABLE TABLET 81 MG PO (08:49)
[2024-01-05] MEDS: CARVEDILOL 3.125MG TABLET 3.125 MG PO (08:49)
[2024-01-05] MEDS: FERROUS SULFATE 325MG TABLET 325 MG PO (08:49)
[2024-01-05] MEDS: FUROSEMIDE 20MG TABLET 20 MG PO (08:49)
[2024-01-05] MEDS: CITALOPRAM 20MG TABLET 20 MG PO (08:49)
[2024-01-05] MEDS: DOXYCYCLINE HYCL 100 MG TABLET PO (08:49)
[2024-01-05] MEDS: MEMANTINE 10MG TABLET 5 MG PO (08:50)
[2024-01-05] MEDS: CHOLECALCIFEROL 1,000 UNITS (25MCG) TABLET 50 MCG PO (08:50)
[2024-01-05] MEDS: ARIPiprazole 10MG TABLET 5 MG PO (08:51)
[2024-01-05] MEDS: levETIRAcetam 500 MG TABLET 750 MG PO (08:51)
[2024-01-05] MEDS: SPIRONOLACTONE 25MG TABLET 12.5 MG PO (08:53)
--- NOTE | 2024-01-05 09:11 | SW/DCPLANNER ---
Addendum entered by Jennifer Benitez 01/05/24 10:02: Dolores w/ [facility] stated that she in unable to meet patient needs at this time. Patient is agreeable for information to be faxed to [facility] at this time. Original Note: I spoke w/ patient's daughter (Lu) regarding plans once medically stable for discharge. PT/OT evaluated patient and recommended home w/ family 13/01 or placement. Daughter stated that patient resides at home w/ her and she prefers to bring her back home at this time. Daughter will be present 13/01 and does not have any DME needs at this time. Daughter stated that she does not think patient would do well in SNF setting. Daughter also stated that they are not interested in home health services at this time due to patient not being agreeable to work w/ services in the past. I will continue to follow up w/ patient/daughter until medically stable for discharge. Discharge date is unknown at this time.
--- NOTE | 2024-01-05 09:35 | PC.NURSE ---
Respiratory Care patient's oxygen saturation is 82% on room air.
--- NOTE | 2024-01-05 09:39 | HMH.OTEV ---
OT Inpatient Evaluation Rehab OT IP Evaluation Start: 01/03/24 11:07 Freq: ONCE Status: Active Protocol: Document 01/05/24 09:08 MAGOORACIO (Rec: 01/05/24 09:38 MARLABHARATH [id number]) Rehab OT IP Assessment Subjective History 73-year-old female history of hypertension, hyperlipidemia, medication induced hepatic cirrhosis, CKD, dementia presenting with bruising bilateral upper extremities, abdominal swelling. Patient has significant dementia, unable to provide history. History is provided by ER physician and documentation Patient states that she has had pain all over, but cannot specify where. This been going on for a couple of days. Family states that patient has been taking all her medications as they give her all of her medications. They state that they checked on her today, patient was complaining of pain, started having welling in her bilateral upper extremities, as well as red spots on her bilateral lower extremities, which is not normal for her. Also note that they saw the patient's abdomen is more distended than that that was normal. Patient has needed paracentesis in the past, no history of abdominal infection . Because of this, brought her in for further evaluation. It should be noted that patient has dementia which is complicating history and care. History was obtained via conversation with patient, but primarily family. On arrival, patient hemodynamically stable, alert, oriented only to person appropriate, GCS 15, moving all extremities spontaneously, pupils equal and reactive to light. Full physical exam performed and significant for chronically ill-appearing woman who is in no acute distress. She does have scleral icterus. She also asterixis. Spider angiomas on bilateral upper and lower extremities, as well as trunk. She does have what appear to be petechiae on lower extremities at sock lines. Patient was given fluids on a rate for symptomatic management and correction of underlying abnormalities. Workup independently interpreted and significant for Mild leukocytosis 11 with neutrophilia. INR normal at 0 .99, PTT normal at 32, fibrinogen normal at 347. D- dimer elevated at 7.9 ng/mL. Chemistry with mild hyponatremia, this appears to be chronic. Potassium normal. Patient has mild MARYLU with creatinine 1.3 up from baseline of normal. Lactate negative. LFTs nonactionable, ammonia elevated mildly at 34 . Patient's BNP is markedly elevated at 3500, no baseline with which to compare. Because patient has new swelling, elevated BNP, elevated D-dimer, concern for PE. chest x-ray with scarring in the right midlung versus inflammation versus atelectasis. Difficult to discern etiology. CT head without acute intracranial abnormality. X-rays of the upper extremities which are swollen and red were negative on independent interpretation. Urinalysis still pending at time of handoff to oncoming physician. Conversation was had with family regarding D-dimer, swelling, elevated BNP, likelihood of PE. They opted for CT PE and CT abdomen pelvis for further diagnostic evaluation of patient's symptoms. CT PE as well as CT abdomen and pelvis ord ered. Patient lives with family at home. Patient unable to provide PLOF of ADLs or fx'l mobility. Patient is only orient to self. Subjective I can get up. Instructed Patient on proper hand and foot placement to complete bed mobility of supine->sit @ EOB->SPT with needing Mod/Min A. Patient demonstrated fair+ dynamic standing balance. Left Patient sitting upright in chair with needs met. Objective Patient Orientation Person Right Upper Extremity Gross ROM WFL Left Upper Extremity Gross ROM WFL Bed Mobility bed mobility - supine/sit Assist Level Minimal x 1 (25% assist) Transfer Training Sit/Stand/Pivot Transfer Assist Level Moderate x 1 (50% assist) Chair Transfer Ability Moderate x 1 (50% assist) Chair Transfer Technique Stand Step Pivot Rehab OT IP prob,goals,plan Problems Date of Evaluation: 01/05/24 OT IP Problems Bed Mobility,Transfers,Balance ,Self care,Safety Rehab Potential Rehab Potential Good Equipment Needs Assistive Devices None / NA Plan OT intervention Plan Bed Mobility,Transfers,Balance ,Self care,Safety,Therapeutic Exercise OT Plan Frequency Daily Duration LOS Discharge Goals Bed Mobility Ability Assistance x1 Sit to Stand Chair Transfer Ability Minimal x 2 (25% assist) Chair Transfer Ability Minimal x 2 (25% assist) Chair Transfer Technique Stand Step Pivot Chair Transfer Assistive Devices None Discharge Plan OT Discharge Plan Recommend patient return home with family with / assistance due to mental status. However if family is unable to provide care recommend placement. OT to continue skilled OT IP services while here at [facility]. Eval Complexity Eval Charge Codes 80070 - Low Complexity PHYSICIAN CERTIFICATION: I certify the specified therapy services for Sarah Prakash are required, authorized, and reviewed every 30 days.
[2024-01-05 10:53] LABS: POC Glucose,Bedside 102 (70-110)
--- NOTE | 2024-01-05 12:51 | PC.NURSE ---
EVS WALKED PAST PT'S ROOM AND WITNESSED PT SITTING IN THE FLOOR NEXT TO CHAIR. NURSING STAFF WALKED IN THE ROOM TO ASSESS AND ASSIST PT UP AND BACK IN THE CHAIR. PT STOOD WITH 2 ASSIST W/O DIFFICULTY. NO INJURIES NOTED. NOTIFIED HOSPITALIST AND SELLING UNDERWRITER.
--- NOTE | 2024-01-05 13:38 | SW/DCPLANNER ---
I spoke w/ patient's daughter (Lu) regarding plans once medically stable for discharge. PT/OT evaluated patient and recommended home w/ family 13/01 or placement. Daughter stated that patient resides at home w/ her and she prefers to bring her back home at this time. Daughter will be present 13/01 and does not have any DME needs at this time. Daughter stated that she does not think patient would do well in SNF setting. Daughter also stated that they are not interested in home health services at this time due to patient not being agreeable to work w/ services in the past. I will continue to follow up w/ patient/daughter until medically stable for discharge. Discharge date is unknown at this time.
--- NOTE | 2024-01-05 14:15 | P.DS_ITS ---
General Admission date:: 01/02/24 Discharge date: 01/05/24 HPI HPI HPI: 73-year-old female history of hypertension, hyperlipidemia, medication induced hepatic cirrhosis, CKD, dementia presenting with bruising bilateral upper extremities, abdominal swelling. Patient has significant dementia, unable to provide history. History is provided by ER physician and documentation Patient states that she has had pain all over, but cannot specify where. This been going on for a couple of days. Family states that patient has been taking all her medications as they give her all of her medications. They state that they checked on her today, patient was complaining of pain, started having welling in her bilateral upper extremities, as well as red spots on her bilateral lower extremities, which is not normal for her. Also note that they saw the patient's abdomen is more distended than that that was normal. Patient has needed paracentesis in the past, no history of abdominal infection. Because of this, brought her in for further evaluation. It should be noted that patient has dementia which is complicating history and care. History was obtained via conversation with patient, but primarily family. On arrival, patient hemodynamically stable, alert, oriented only to person appropriate, GCS 15, moving all extremities spontaneously, pupils equal and reactive to light. Full physical exam performed and significant for chronically ill-appearing woman who is in no acute distress. She does have scleral icterus. She also asterixis. Spider angiomas on bilateral upper and lower extremities, as well as trunk. She does have what appear to be petechiae on lower extremities at sock lines. Patient was given fluids on a rate for symptomatic management and correction of underlying abnormalities. Workup independently interpreted and significant for Mild leukocytosis 11 with neutrophilia. INR normal at 0.99, PTT normal at 32, fibrinogen normal at 347. D-dimer elevated at 7.9 ng/mL. Chemistry with mild hyponatremia, this appears to be chronic. Potassium normal. Patient has mild MARYLU with creatinine 1.3 up from baseline of normal. Lactate negative. LFTs nonactionable, ammonia elevated mildly at 34. Patient's BNP is markedly elevated at 3500, no baseline with which to compare. Because patient has new swelling, elevated BNP, elevated D-dimer, concern for PE. chest x-ray with scarring in the right midlung versus inflammation versus atelectasis. Difficult to discern etiology. CT head without acute intracranial abnormality. X-rays of the upper extremities which are swollen and red were negative on independent interpretation. Urinalysis still pending at time of handoff to oncoming physician. Conversation was had with family regarding D-dimer, swelling, elevated BNP, likelihood of PE. They opted for CT PE and CT abdomen pelvis for further diagnostic evaluation of patient's symptoms. CT PE as well as CT abdomen and pelvis ord ered. Hospital Course Hospital Course Hospital Course: Patient admitted to hospital for evaluation of shortness of breath and new oxygen requirement. Patient ultimately diagnosed with CHF exacerbation secondary to pneumonia, and ascites secondary to cirrhosis. Patient had echocardiogram done 01/01/2014 which showed no gross abnormalities. CTA chest done at time of admission showed possible pneumonia without pulmonary embolus. Patient maintained on broad-spectrum antibiotics throughout hospitalization, with respiratory status improving. Patient also placed on usual COPD management during hospitalization. Patient ultimately advised to follow-up with both cardiology/pulmonology on outpatient basis. Patient discharged on a few addit ional days of Doxy/Omnicef therapy. Patient also evaluated for abdominal distention secondary to ascites during hospitalization. Patient had paracentesis procedure done 01/02/2024 with 420 ml ascites fluid removed. Fluid appeared transudative versus exudative without signs of SBP patient started on Lasix, rifaximin, spironolactone during hospitalization for cirrhosis management. Patient subsequently recommended to follow-up with gastroenterology in outpatient basis. Of special note, on day of discharge patient's oxygen saturation 82% at rest on room air, so patient qualifies for home oxygen. Exam Data for Last 24 hours Vital signs and Labs for Last 24 Hours: Temp Pulse Resp BP Pulse Ox O2 Del Method O2 Flow Rate 97.6 F 71 22 120/67 94 L Nasal Cannula 2 01/05/24 12:00 01/05/24 12:00 01/05/24 12:00 01/05/24 12:00 01/05/24 12:00 01/05/24 13:00 01/05/24 13:00 FiO2 28 01/04/24 18:44 Laboratory Results - last 24 hr 01/02/24 11:30: Fluid Glucose 134, Fluid Total Protein 1.0, Fluid Albumin 0.5, Fluid LDH 75 01/03/24 21:13: Urine Color Aster, Urine Appearance Turbid, Urine pH 7.5, Ur Specific [place] 1.020, Urine Protein 3+, Urine Glucose (UA) Negative, Urine Ketones Negative, Urine Blood 3+, Urine Nitrate Positive, Urine Bilirubin 2+ A, Urine Urobilinogen 1.0, Ur Leukocyte Esterase Trace, Urine RBC 10-20, Urine WBC 5-10, Ur Squamous Epith Cells None, Urine Bacteria 4+ 01/04/24 16:54: POC Glucose 127 H 01/04/24 20:03: POC Glucose 139 H 01/05/24 05:39: POC Glucose 106 01/05/24 06:12: WBC 7.4, RBC 3.76 L, Hgb 10.9 L, Hct 33.7 L, MCV 89.6, MCH 29.1, MCHC 32.5, RDW 15.1, Plt Count 153, MPV 7.8, Neut % (Auto) 77.0, Lymph % (Auto) 13.1, Larue % (Auto) 7.5, Eos % (Auto) 2.0, Baso % (Auto) 0.4, Neut # (Auto) 5.7, Lymph # (Auto) 1.0, Larue # (Auto) 0.6, Eos # (Auto) 0.2, Baso # (Auto) 0.0, Sodium 129 L, Potassium 4.1, Chloride 104, Carbon Dioxide 24, Anion Gap 5.1, BUN 47 H, Creatinine 1.30 H, Estimated Creat Clear 35, Estimated GFR 40 L, Est GFR ( Amer) 49 L, Glucose 112 H D, Calcium 8.3 L, Magnesium 2.1 D, Total Bilirubin 0.6, AST 26, ALT 14, Alkaline Phosphatase 139 H, Total Protein 5.1 L, Albumin 2.2 L, Globulin 2.9, Albumin/Globulin Ratio 0.8 L 01/05/24 10:40: POC Glucose 102 I & O for Last 24 hours: Intake & Output 01/02/24 01/03/24 01/04/24 01/05/24 23:59 23:59 23:59 23:59 Intake Total 1342 / 1442 740 / 990 850 / 1100 760 / 760 Output Total 251 / 451 200 / 200 0 / 200 200 / 200 Balance 1091 / 991 540 / 790 850 / 900 560 / 560 Weight 54.522 kg 55.837 kg 57.289 kg 56.88 kg Microbiology Reports for the Last 24 Hours: Microbiology 01/02/24 11:30 Ascites Fluid Gram Stain - Final 01/02/24 11:30 Ascites Fluid Body Fluid Culture - Preliminary Radiology Reports for the Last 24 Hours: Ordering Physician: Husam Jackson APRN Date of Service: 01/03/24 Procedure(s): XR chest portable Accession Number(s): [id number] cc: Ofelia Ko APRN; Fidel Grimes MD~ PROCEDURE INFORMATION: Exam: XR Chest Exam date and time: 01/03/2024 2:53 AM Age: 73 years old Clinical indication: Shortness of breath; Additional info: SOB TECHNIQUE: Imaging protocol: Radiologic exam of the chest. Views: 1 view. COMPARISON: CT ANGIO CHEST PE PROTOCOL 01/01/2024 10:20 PM FINDINGS: Lungs: The lungs are hyperlucent consistent with COPD. No focal infiltrates identified. Pleural spaces: Unremarkable. No pleural effusion. No pneumothorax. Heart/Mediastinum: Mild cardiomegaly. Bones/joints: Unremarkable. IMPRESSION: Mild cardiomegaly. The lungs are hyperlucent consistent with COPD. No focal infiltrates identified. Patient: Sarah Randall MR#: [id number] : 1950 Acct:[id number] Age/Sex: 73 / F ADM Date: 01/02/[address]: Arabella Bell MD Ordering Physician: Sukhdev Hahn MD Date of Service: 01/02/24 Procedure(s): CA echo doppler complete Accession Number(s): [id number] cc: Ofelia Ko APRN; Andrew Martinez MD; Sukhdev Hahn MD Conclusion Normal biventricular systolic function. Mild RV dilation. Mild biatrial dilation. Mild AI, mild TR. Abdominal ascites is present. Ordering Physician: Sukhdev Hahn MD Date of Service: 01/02/24 Procedure(s): US Paracentesis Accession Number(s): [id number] cc: Ofelia Ko APRN; Zechariah Lopez MD~ FINAL REPORT CLINICAL HISTORY: ascites -- rt side -- 420 ml removed -- bonnie ROBBINS FINDINGS: ULTRASOUND-GUIDED PARACENTESIS. HISTORY: Ascites. ATTENDING PHYSICIAN: Dr. Lopez. PHYSICIAN MACHINING SUPERVISOR: Mirna Rm PA-C. PROCEDURE: Informed consent was obtained from the patient. The risks of the procedure were discussed with the patient prior to beginning. A timeout procedure was performed. Ultrasound guidance was utilized to localize a small pocket of fluid. The skin was marked appropriately. Patient was prepped and draped in the usual sterile fashion over the right lower quadrant. The skin was anesthetized with 1% lidocaine. Access to the fluid was obtained using a catheter access needle. Approximately 420 mL of clear yellow fluid was removed. A portion of the fluid was sent to laboratory for analysis. The patient tolerated the procedure well and left the department in good condition. Ultrasound guidance was utilized for this procedure. IMPRESSION: Technically successful ultrasound-guided right lower quadrant paracentesis, as described above. PROCEDURE INFORMATION: Exam: CTA Chest With Contrast Exam date and time: 01/01/2024 10:20 PM Age: 73 years old Clinical indication: Other: Diffuse swelling; Additional info: Elevated dimer, diffuse swelling TECHNIQUE: Imaging protocol: Computed tomographic angiography of the chest with contrast. Exam focused on the arteries. 3D rendering (Not supervised by radiologist): MIP and/or 3D reconstructed images were created by the technologist. Radiation optimization: All CT scans at this facility use at least one of these dose optimization techniques: automated exposure control; mA and/or kV adjustment per patient size (includes targeted exams where dose is matched to clinical indication); or iterative reconstruction. Contrast material: ISOVUE; Contrast volume: 75 ml; Contrast route: INTRAVENOUS (IV); COMPARISON: CT CHEST W CON 09/25/2023 9:46 AM FINDINGS: Pulmonary arteries: Normal. No pulmonary emboli. Aorta: Atherosclerotic calcification of thoracic aorta. Lungs: Underlying mild centrilobular emphysematous changes. Pleural spaces: Poorly defined patchy right upper lobar opacity adjacent to major fissure. Heart: Unremarkable. No cardiomegaly. No pericardial effusion. Lymph nodes: Unremarkable. No enlarged lymph nodes. Bones/joints: Age-indeterminate but unchanged midthoracic spine vertebral body compression fractures. No acute fractures or osseous findings identified. Soft tissues: Unremarkable. IMPRESSION: 1. No central or segmental pulmonary arterial embolism by CT criteria. 2. Patchy right upper lobar opacity, likely infectious/inflammatory. PROCEDURE INFORMATION: Exam: CT Abdomen And Pelvis With Contrast Exam date and time: 01/01/2024 10:20 PM Age: 73 years old Clinical indication: Other: Abdominal distention; Additional info: Abdominal distention, cirrhosis TECHNIQUE: Imaging protocol: Computed tomography of the abdomen and pelvis with contrast. Radiation optimization: All CT scans at this facility use at least one of these dose optimization techniques: automated exposure control; mA and/or kV adjustment per patient size (includes targeted exams where dose is matched to clinical indication); or iterative reconstruction. Contrast material: ISOVUE; Contrast volume: 75 ml; Contrast route: IV; COMPARISON: CT [facility]BDOMEN [facility]ELVIS W [facility] 01/01/2024 10:20 PM FINDINGS: Liver: Heterogeneous. Irregularly contoured liver. No intrahepatic biliary ductal dilatation. No obvious mass. Gallbladder and biliary ducts: Surgically absent gallbladder. Pancreas: Normal. No ductal dilation. Spleen: Spleen measures 15 cm. Adrenal glands: Normal. No mass. Kidneys and ureters: Normal. No hydronephrosis. Stomach and bowel: Sigmoid colonic diverticula. Postsurgical changes of ascending and transverse colon. Appendix: No evidence of appendicitis. Intraperitoneal space: Abdominopelvic ascites. Retroperitoneal space: Prominent perigastric, retroperitoneal and perisplenic collateral vessels. Vasculature: Atherosclerotic calcification of aortoiliac arteries. Lymph nodes: Unremarkable. No enlarged lymph nodes. Urinary bladder: Unremarkable as visualized. Reproductive: Unremarkable as visualized. Bones/joints: Left hip prosthesis. Soft tissues: Unremarkable. IMPRESSION: 1. Hepatic cirrhosis without obvious mass. 2. Splenomegaly with extensive collateral vessels suspicious for sequela portal hypertension. 3. Abdominopelvic ascites. 4. Sigmoid colonic diverticulosis. *Routine HEENT Exam Head: Present normocephalic Eye: Present EOMI ENT: Present mucous membranes moist *Routine Neck Exam Neck: Present supple and full ROM *Routine Respiratory Exam Respiratory: Present prolonged expiratory phase and diminished air movement *Routine Cardiovascular Exam Cardiovascular: Present RRR, Normal S1 and Normal S2 *Routine Abdominal Exam Abdominal: Present soft and normoactive bowel sounds *Routine Skin Exam Skin: Present intact and dry *Routine Neurological Exam Neurological: Present alert and oriented X3 Results Data Completed and Pending Labs on day of discharge: Labs from last 24 hours 01/05/24 01/05/24 01/05/24 10:40 06:12 05:39 WBC 7.4 RBC 3.76 L Hgb 10.9 L Hct 33.7 L MCV 89.6 MCH 29.1 MCHC 32.5 RDW 15.1 Plt Count 153 MPV 7.8 Neut % (Auto) 77.0 Lymph % (Auto) 13.1 Larue % (Auto) 7.5 Eos % (Auto) 2.0 Baso % (Auto) 0.4 Neut # (Auto) 5.7 Lymph # (Auto) 1.0 Larue # (Auto) 0.6 Eos # (Auto) 0.2 Baso # (Auto) 0.0 Sodium 129 L Potassium 4.1 Chloride 104 Carbon Dioxide 24 Anion Gap 5.1 BUN 47 H Creatinine 1.30 H Estimated Creat Clear 35 Estimated GFR 40 L Est GFR ( Amer) 49 L Glucose 112 H D POC Glucose 102 106 Calcium 8.3 L Magnesium 2.1 D Total Bilirubin 0.6 AST 26 ALT 14 Alkaline Phosphatase 139 H Total Protein 5.1 L Albumin 2.2 L Globulin 2.9 Albumin/Globulin Ratio 0.8 L Urine Color Urine Appearance Urine pH Ur Specific [place] Urine Protein Urine Glucose (UA) Urine Ketones Urine Blood Urine Nitrate Urine Bilirubin Urine Urobilinogen Ur Leukocyte Esterase Urine RBC Urine WBC Ur Squamous Epith Cells Urine Bacteria Fluid Glucose Fluid Total Protein Fluid Albumin Fluid LDH 01/04/24 01/04/24 01/03/24 20:03 16:54 21:13 WBC RBC Hgb Hct MCV MCH MCHC RDW Plt Count MPV Neut % (Auto) Lymph % (Auto) Larue % (Auto) Eos % (Auto) Baso % (Auto) Neut # (Auto) Lymph # (Auto) Larue # (Auto) Eos # (Auto) Baso # (Auto) Sodium Potassium Chloride Carbon Dioxide Anion Gap BUN Creatinine Estimated Creat Clear Estimated GFR Est GFR ( Amer) Glucose POC Glucose 139 H 127 H Calcium Magnesium Total Bilirubin AST ALT Alkaline Phosphatase Total Protein Albumin Globulin Albumin/Globulin Ratio Urine Color Aster Urine Appearance Turbid Urine pH 7.5 Ur Specific [place] 1.020 Urine Protein 3+ Urine Glucose (UA) Negative Urine Ketones Negative Urine Blood 3+ Urine Nitrate Positive Urine Bilirubin 2+ A Urine Urobilinogen 1.0 Ur Leukocyte Esterase Trace Urine RBC 10-20 Urine WBC 5-10 Ur Squamous Epith Cells None Urine Bacteria 4+ Fluid Glucose Fluid Total Protein Fluid Albumin Fluid LDH 01/02/24 11:30 WBC RBC Hgb Hct MCV MCH MCHC RDW Plt Count MPV Neut % (Auto) Lymph % (Auto) Larue % (Auto) Eos % (Auto) Baso % (Auto) Neut # (Auto) Lymph # (Auto) Larue # (Auto) Eos # (Auto) Baso # (Auto) Sodium Potassium Chloride Carbon Dioxide Anion Gap BUN Creatinine Estimated Creat Clear Estimated GFR Est GFR ( Amer) Glucose POC Glucose Calcium Magnesium Total Bilirubin AST ALT Alkaline Phosphatase Total Protein Albumin Globulin Albumin/Globulin Ratio Urine Color Urine Appearance Urine pH Ur Specific [place] Urine Protein Urine Glucose (UA) Urine Ketones Urine Blood Urine Nitrate Urine Bilirubin Urine Urobilinogen Ur Leukocyte Esterase Urine RBC Urine WBC Ur Squamous Epith Cells Urine Bacteria Fluid Glucose 134 Fluid Total Protein 1.0 Fluid Albumin 0.5 Fluid LDH 75 Preliminary micro results at discharge 01/02/24 11:30 Body Fluid Culture - Preliminary Ascites Fluid Imaging and Cardiology TESTING: Status: image reviewed by me Additional comments: Ordering Physician: Husam Jackson APRN Date of Service: 01/03/24 Procedure(s): XR chest portable Accession Number(s): [id number] cc: Ofelia Ko APRN; Fidel Grimes MD~ PROCEDURE INFORMATION: Exam: XR Chest Exam date and time: 01/03/2024 2:53 AM Age: 73 years old Clinical indication: Shortness of breath; Additional info: SOB TECHNIQUE: Imaging protocol: Radiologic exam of the chest. Views: 1 view. COMPARISON: CT ANGIO CHEST PE PROTOCOL 01/01/2024 10:20 PM FINDINGS: Lungs: The lungs are hyperlucent consistent with COPD. No focal infiltrates identified. Pleural spaces: Unremarkable. No pleural effusion. No pneumothorax. Heart/Mediastinum: Mild cardiomegaly. Bones/joints: Unremarkable. IMPRESSION: Mild cardiomegaly. The lungs are hyperlucent consistent with COPD. No focal infiltrates identified. Patient: Sarah Randall MR#: [id number] : 1950 Acct:[id number] Age/Sex: 73 / F ADM Date: 01/02/[address]: Arabella Bell MD Ordering Physician: Sukhdev Hahn MD Date of Service: 01/02/24 Procedure(s): CA echo doppler complete Accession Number(s): [id number] cc: Ofelia Ko APRN; Andrew Martinez MD; Sukhdev Hahn MD Conclusion Normal biventricular systolic function. Mild RV dilation. Mild biatrial dilation. Mild AI, mild TR. Abdominal ascites is present. Ordering Physician: Sukhdev Hahn MD Date of Service: 01/02/24 Procedure(s): US Paracentesis Accession Number(s): [id number] cc: Ofelia Ko APRN; Zechariah Lopez MD~ FINAL REPORT CLINICAL HISTORY: ascites -- rt side -- 420 ml removed -- bonnie ROBBINS FINDINGS: ULTRASOUND-GUIDED PARACENTESIS. HISTORY: Ascites. ATTENDING PHYSICIAN: Dr. Lopez. PHYSICIAN MACHINING SUPERVISOR: Mirna Rm PA-C. PROCEDURE: Informed consent was obtained from the patient. The risks of the procedure were discussed with the patient prior to beginning. A timeout procedure was performed. Ultrasound guidance was utilized to localize a small pocket of fluid. The skin was marked appropriately. Patient was prepped and draped in the usual sterile fashion over the right lower quadrant. The skin was anesthetized with 1% lidocaine. Access to the fluid was obtained using a catheter access needle. Approximately 420 mL of clear yellow fluid was removed. A portion of the fluid was sent to laboratory for analysis. The patient tolerated the procedure well and left the department in good condition. Ultrasound guidance was utilized for this procedure. IMPRESSION: Technically successful ultrasound-guided right lower quadrant paracentesis, as described above. PROCEDURE INFORMATION: Exam: CTA Chest With Contrast Exam date and time: 01/01/2024 10:20 PM Age: 73 years old Clinical indication: Other: Diffuse swelling; Additional info: Elevated dimer, diffuse swelling TECHNIQUE: Imaging protocol: Computed tomographic angiography of the chest with contrast. Exam focused on the arteries. 3D rendering (Not supervised by radiologist): MIP and/or 3D reconstructed images were created by the technologist. Radiation optimization: All CT scans at this facility use at least one of these dose optimization techniques: automated exposure control; mA and/or kV adjustment per patient size (includes targeted exams where dose is matched to clinical indication); or iterative reconstruction. Contrast material: ISOVUE; Contrast volume: 75 ml; Contrast route: INTRAVENOUS (IV); COMPARISON: CT CHEST W CON 09/25/2023 9:46 AM FINDINGS: Pulmonary arteries: Normal. No pulmonary emboli. Aorta: Atherosclerotic calcification of thoracic aorta. Lungs: Underlying mild centrilobular emphysematous changes. Pleural spaces: Poorly defined patchy right upper lobar opacity adjacent to major fissure. Heart: Unremarkable. No cardiomegaly. No pericardial effusion. Lymph nodes: Unremarkable. No enlarged lymph nodes. Bones/joints: Age-indeterminate but unchanged midthoracic spine vertebral body compression fractures. No acute fractures or osseous findings identified. Soft tissues: Unremarkable. IMPRESSION: 1. No central or segmental pulmonary arterial embolism by CT criteria. 2. Patchy right upper lobar opacity, likely infectious/inflammatory. PROCEDURE INFORMATION: Exam: CT Abdomen And Pelvis With Contrast Exam date and time: 01/01/2024 10:20 PM Age: 73 years old Clinical indication: Other: Abdominal distention; Additional info: Abdominal distention, cirrhosis TECHNIQUE: Imaging protocol: Computed tomography of the abdomen and pelvis with contrast. Radiation optimization: All CT scans at this facility use at least one of these dose optimization techniques: automated exposure control; mA and/or kV adjustment per patient size (includes targeted exams where dose is matched to clinical indication); or iterative reconstruction. Contrast material: ISOVUE; Contrast volume: 75 ml; Contrast route: IV; COMPARISON: CT ABDOMEN PELVIS W CON 01/01/2024 10:20 PM FINDINGS: Liver: Heterogeneous. Irregularly contoured liver. No intrahepatic biliary ductal dilatation. No obvious mass. Gallbladder and biliary ducts: Surgically absent gallbladder. Pancreas: Normal. No ductal dilation. Spleen: Spleen measures 15 cm. Adrenal glands: Normal. No mass. Kidneys and ureters: Normal. No hydronephrosis. Stomach and bowel: Sigmoid colonic diverticula. Postsurgical changes of ascending and transverse colon. Appendix: No evidence of appendicitis. Intraperitoneal space: Abdominopelvic ascites. Retroperitoneal space: Prominent perigastric, retroperitoneal and perisplenic collateral vessels. Vasculature: Atherosclerotic calcification of aortoiliac arteries. Lymph nodes: Unremarkable. No enlarged lymph nodes. Urinary bladder: Unremarkable as visualized. Reproductive: Unremarkable as visualized. Bones/joints: Left hip prosthesis. Soft tissues: Unremarkable. IMPRESSION: 1. Hepatic cirrhosis without obvious mass. 2. Splenomegaly with extensive collateral vessels suspicious for sequela portal hypertension. 3. Abdominopelvic ascites. 4. Sigmoid colonic diverticulosis DS: Diagnosis Discharge Diagnosis (1) Cirrhosis of liver with ascites: Status: Acute Code(s): K74.60 - Unspecified cirrhosis of liver; R18.8 - Other ascites (2) Splenomegaly: Status: Acute Code(s): R16.1 - Splenomegaly, not elsewhere classified (3) Acute hypoxic respiratory failure: Status: Acute Code(s): J96.01 - Acute respiratory failure with hypoxia (4) History of tobacco abuse: Status: Acute Code(s): Z87.891 - Personal history of nicotine dependence (5) MARYLU (acute kidney injury): Status: Acute Code(s): N17.9 - Acute kidney failure, unspecified (6) Chronic venous stasis: Status: Acute Code(s): I87.8 - Other specified disorders of veins (7) Dementia: Status: Acute Code(s): F03.90 - Unspecified dementia, unspecified severity, without behavioral disturbance, psychotic disturbance, mood disturbance, and anxiety Qualifiers: Alzheimer's disease onset: early onset Dementia behavioral or psychological symptom: with anxiety Dementia severity: severe Dementia type: Alzheimer's Qualified Code(s): G30.0 - Alzheimer's disease with early onset; F02.C4 - Dementia in other diseases classified elsewhere, severe, with anxiety Meds Home Medications and Allergies Home Medications Medication Instructions Recorded Confirmed Type clonazepam 1 mg tablet 1 mg PO HS 06/13/23 01/02/24 History ferrous sulfate 325 mg (65 mg 325 mg PO DAILY iron deficiency 07/03/23 01/02/24 Rx iron) tablet (FeroSul) #90 tabs omeprazole 20 mg capsule,delayed 20 mg PO DAILY #90 caps 07/03/23 01/02/24 Rx release aripiprazole 5 mg tablet 5 mg PO DAILY 01/02/24 01/02/24 History cholecalciferol (vitamin D3) 50 2,000 unit PO DAILY 01/02/24 01/02/24 History mcg (2,000 unit) tablet ergocalciferol (vitamin D2) 1,250 50,000 unit PO WEEKLY 01/02/24 01/02/24 History mcg (50,000 unit) capsule escitalopram oxalate 10 mg tablet 10 mg PO DAILY 01/02/24 01/02/24 History fluticasone furoate 100 1 inh inhalation DAILY 01/02/24 01/02/24 History mcg-vilanterol 25 mcg/dose inhalation powder (Breo Ellipta) levetiracetam 750 mg tablet 750 mg PO BID 01/02/24 01/02/24 History memantine 5 mg tablet 5 mg PO DAILY 01/02/24 01/02/24 History montelukast 10 mg tablet 10 mg PO HS 01/02/24 01/02/24 History cefdinir 300 mg capsule 300 mg PO BID #5 caps 01/05/24 Rx doxycycline hyclate 100 mg tablet 100 mg PO BID #5 tabs 01/05/24 Rx furosemide 20 mg tablet 20 mg PO QODHS #15 tabs 01/05/24 Rx rifaximin 550 mg tablet (Xifaxan) 550 mg PO BID #60 tabs 01/05/24 Rx spironolactone 25 mg tablet 12.5 mg (1/2 x 25 mg) PO DAILY #30 01/05/24 Rx tabs tiotropium bromide 18 mcg capsule 1 cap inhalation DAILY #30 puffs 01/05/24 Rx with inhalation device (Spiriva with HandiHaler) New Prescriptions to Start Prescriptions: cefdinir Hahn,[place] doxycycline hyclate Hahn,Sukhdev furosemide Hahn,Sukhdev rifaximin [Xifaxan] Hahn,[place] spironolactone Hahn,[place] tiotropium bromide [Spiriva with HandiHaler] Hahn,[place] Allergies Allergy/AdvReac Type Severity Reaction Status Date / Time Penicillins Allergy Mild Verified 06/13/23 10:04 Discharge Plan Disposition Patient Disposition: Home, Self-Care Condition: Fair Discharge Order Discharge Orders: Discharge Order (Routine); Ordered 01/05/24 Ordered By: Sukhdev Hahn Follow up Plan Follow up with: Ofelia Ko APRN [Primary Care Provider] - 01/14/24 12:15 pm Trey Knox [Referring] - Enter time for follow up (Cirrhosis status post paracentesis 01/02/2024 with over 400 cc removed called office. Faxed referral patient may need to follow up to schedule appointment. ) Jose Bell MD [Staff Physician] - 02/02/24 1:30 pm (Admitted to hospital with shortness of breath. Echocardiogram done 01/02/2024 showing normal EF, and normal biventricular function. He is evaluate for signs of congestive heart failure given shortness of breath. Thank you) Carmelita Castillo MD [Physician] - 01/20/24 1:30 pm (Admitted with shortness of breath with COPD issues. New start to oxygen 2 L at home.) Prescriptions/Medication Reconciliation: New spironolactone 25 mg Tablet 12.5 mg PO DAILY Qty: 30 0RF furosemide 20 mg Tablet 20 mg PO QODHS Qty: 15 0RF doxycycline hyclate 100 mg Tablet 100 mg PO BID Qty: 5 0RF Xifaxan 550 mg Tablet 550 mg PO BID Qty: 60 0RF tiotropium bromide [Spiriva with HandiHaler] 18 mcg capsule, w/inhalation device 1 cap inhalation DAILY Qty: 30 1RF Rx Instructions: puncture 1 cap using device; one dose = 2 inhalations cefdinir 300 mg capsule 300 mg PO BID Qty: 5 0RF Continued clonazepam 1 mg tablet 1 mg PO HS ferrous sulfate [FeroSul] 325 mg (65 mg iron) tablet 325 mg PO DAILY Qty: 90 0RF omeprazole 20 mg capsule,delayed release(DR/EC) 20 mg PO DAILY Qty: 90 0RF montelukast 10 mg tablet 10 mg PO HS ergocalciferol (vitamin D2) 1,250 mcg (50,000 unit) capsule 50,000 unit PO WEEKLY memantine 5 mg tablet 5 mg PO DAILY levetiracetam 750 mg tablet 750 mg PO BID Patient Comments: TAKE ONE TABLET BY MOUTH 2 TIMES A DAY FOR SEIZURES escitalopram oxalate 10 mg tablet 10 mg PO DAILY Patient Comments: TAKE ONE TABLET BY MOUTH ONCE A DAY FOR DEPRESSION aripiprazole 5 mg tablet 5 mg PO DAILY cholecalciferol (vitamin D3) 50 mcg (2,000 unit) tablet 2,000 unit PO DAILY fluticasone furoate-vilanterol [Breo Ellipta] 100-25 mcg/dose blister with device 1 inh INHALATION DAILY Other Ambulatory Orders: Home Medical Equipment (Routine) Location: None Selected Ordered By: Sukhdev Hahn Problem Reconciliation Problems Reviewed?: Yes Patient Discharge Instructions ACTIVITY: Ambulate as tolerated DIET: advance to your usual diet Patient Instructions: DI for Cellulitis -- Adult, DI for Abdominal Paracentesis, DI for Surgical Site Infection, DI for Heart Failure Exacerbations Print Language: Tajik Providers Primary Care Provider: Ofelia Ko Admit Provider: Arabella Bell Attending Provider: Arabella Bell
--- NOTE | 2024-01-05 14:17 | PC.NURSE ---
called Cases office they requested a referral, referral has been sent.
[2024-01-05 16:29] LABS: POC Glucose,Bedside 115 (70-110)
--- NOTE | 2024-01-06 13:22 | CARE MANAGER ---
Contacted patient's daughter related to hospital discharge. She states the patient is very weak and she is having a hard time. They are picking up medications today and she requested to speak with the social service manager. Jennifer is going to work on possible placement from home. GARETH Brownlee
--- NOTE | 2024-01-06 13:29 | SW/DCPLANNER ---
Addendum entered by Jennifer Benitez 01/06/24 15:32: Dolores miner/ [facility] is not able to accept this patient. Rafal miner/ [facility] stated that she will start an auth today: daughter is agreeable w/ this plan. Original Note: I received a phone call today from patient's daughter stated that she is unable to care for patient at home. Daughter is interested in SNF level of care for this patient. I explained to daughter that I can work on placement from home due to discharging from [facility] yesterday. Daughter expressed an interest in the following facilities: [facility], [facility] and [facility]. Patient information has been faxed to all facilities. I will follow up w/ facilities and daughter once information is reviewed.
== END 2024-01-05 17:30 | disposition home or self-care (01) | DRG 432 ==
LOC: ER 23:40 → 2ND 01-02 07:33
PROVIDERS: Family Medicine; Internal Medicine; Admitting Provider Student in an Organized Health Care Education/Training Program; Emergency Provider Emergency Medicine; PCP Nurse Practitioner Family; Visit Provider Student in an Organized Health Care Education/Training Program
DX: K74.69 Other cirrhosis of liver (principal); J18.9 Pneumonia, unspecified organism; J96.01 Acute respiratory failure with hypoxia; K76.6 Portal hypertension; E87.1 Hypo-osmolality and hyponatremia; J44.1 Chronic obstructive pulmonary disease with (acute) exacerbation; N17.9 Acute kidney failure, unspecified; J44.0 Chronic obstructive pulmonary disease with (acute) lower respiratory infection; M79.89 Other specified soft tissue disorders; F03.90 Unspecified dementia, unspecified severity, without behavioral disturbance, psychotic disturbance, mood disturbance, and anxiety; Z79.899 Other long term (current) drug therapy; J44.9 Chronic obstructive pulmonary disease, unspecified; G40.909 Epilepsy, unspecified, not intractable, without status epilepticus; N18.9 Chronic kidney disease, unspecified; Z96.642 Presence of left artificial hip joint; Z99.81 Dependence on supplemental oxygen; Z87.891 Personal history of nicotine dependence
CPT/HCPCS: 49082; 36415; 49083; 70450; 71045; 71275; 73080; 73090; 73110; 73130; 74177; 80053; 81001; 82042; 82140; 82945; 82962; 83605; 83615; 83690; 83735; 83880; 84100; 84155; 85007; 85025; 85027; 85378; 85384; 85610; 85730; 87070; 87086; 87205; 87507; 88112; 88305; 89051; 93306; 94640; 97162; 97165; 97530; 99285; C1751; J1644; J1940; J2919; J3370; J3475; J7030; J7120; J7620; Q9967

== ENCOUNTER 2024-03-10 08:43 | Inpatient (IN) | payer MEDICARE, SELFPAY ==
[2024-03-10] VITALS (15 sets, daily range): BP systolic 111–157; BP diastolic 65–86; PULSE 72–100; RESP 16–22; TEMP 36.6–37; O2SAT 92–100; BMI 21.2; BMI 25.3
--- NOTE | 2024-03-10 08:50 | HMH.EDGENADL ---
Discharge Plan Disposition Patient Disposition: Admitted Chief Complaint: Shortness of Breath/Dyspnea Prescriptions Prescriptions: No Action clonazepam 1 mg tablet 1 mg PO HS ferrous sulfate [FeroSul] 325 mg (65 mg iron) tablet 325 mg PO DAILY Qty: 90 0RF omeprazole 20 mg capsule,delayed release(DR/EC) 20 mg PO DAILY Qty: 90 0RF montelukast 10 mg tablet 10 mg PO HS ergocalciferol (vitamin D2) 1,250 mcg (50,000 unit) capsule 50,000 unit PO WEEKLY memantine 5 mg tablet 5 mg PO DAILY levetiracetam 750 mg tablet 750 mg PO BID Patient Comments: TAKE ONE TABLET BY MOUTH 2 TIMES A DAY FOR SEIZURES escitalopram oxalate 10 mg tablet 10 mg PO DAILY Patient Comments: TAKE ONE TABLET BY MOUTH ONCE A DAY FOR DEPRESSION aripiprazole 5 mg tablet 5 mg PO DAILY cholecalciferol (vitamin D3) 50 mcg (2,000 unit) tablet 2,000 unit PO DAILY fluticasone furoate-vilanterol [Breo Ellipta] 100-25 mcg/dose blister with device 1 inh INHALATION DAILY spironolactone 25 mg Tablet 12.5 mg PO DAILY Qty: 30 0RF furosemide 20 mg Tablet 20 mg PO QODHS Qty: 15 0RF doxycycline hyclate 100 mg Tablet 100 mg PO BID Qty: 5 0RF Xifaxan 550 mg Tablet 550 mg PO BID Qty: 60 0RF tiotropium bromide [Spiriva with HandiHaler] 18 mcg capsule, w/inhalation device 1 cap inhalation DAILY Qty: 30 1RF Rx Instructions: puncture 1 cap using device; one dose = 2 inhalations cefdinir 300 mg capsule 300 mg PO BID Qty: 5 0RF Clinical Impressions Clinical Impression: CHF exacerbation, Acute exacerbation of chronic obstructive pulmonary disease, Acute urinary retention Print Language Print Language: Yakut Discharge ED Provider: Wilbur Angela General Adult HPI General Chief complaint: Shortness of Breath/Dyspnea Stated complaint: sollen abd, SOA Time Seen by Provider: 03/10/24 08:49 History of Present Illness HPI narrative: Please note that above description of symptoms, in this electronic medical record under categorization of recalled from ER triage doctor by RN are reflective of an initial nursing assessment, however, is not reflective of my full history and physical exam that was personally taken and clarified. Consequentially, this preceding description of symptoms, which may include the patient's categorized chief complaint in the EMR, do not reflect my personal clinical impression, and the ultimate description of history of present illness and patient stated complaints should be deferred to this section of the note. Unless stated otherwise or congruent with this section of the note, additional signs, symptoms, or incongruence should be interpreted as inaccurate with my clinical impression. Related Data Home Medications ?Medication ?Instructions ?Recorded ?Confirmed clonazepam 1 mg tablet 1 mg PO HS 06/13/23 01/02/24 aripiprazole 5 mg tablet 5 mg PO DAILY 01/02/24 01/02/24 cholecalciferol (vitamin D3) 50 2,000 unit PO DAILY 01/02/24 01/02/24 mcg (2,000 unit) tablet ergocalciferol (vitamin D2) 1,250 50,000 unit PO WEEKLY 01/02/24 01/02/24 mcg (50,000 unit) capsule escitalopram oxalate 10 mg tablet 10 mg PO DAILY 01/02/24 01/02/24 fluticasone furoate 100 1 inh inhalation DAILY 01/02/24 01/02/24 mcg-vilanterol 25 mcg/dose inhalation powder (Breo Ellipta) levetiracetam 750 mg tablet 750 mg PO BID 01/02/24 01/02/24 memantine 5 mg tablet 5 mg PO DAILY 01/02/24 01/02/24 montelukast 10 mg tablet 10 mg PO HS 01/02/24 01/02/24 Previous Rx's ?Medication ?Instructions ?Recorded ferrous sulfate 325 mg (65 mg 325 mg PO DAILY iron deficiency 07/03/23 iron) tablet (FeroSul) #90 tabs omeprazole 20 mg capsule,delayed 20 mg PO DAILY #90 caps 07/03/23 release cefdinir 300 mg capsule 300 mg PO BID #5 caps 01/05/24 doxycycline hyclate 100 mg tablet 100 mg PO BID #5 tabs 01/05/24 furosemide 20 mg tablet 20 mg PO QODHS #15 tabs 01/05/24 rifaximin 550 mg tablet (Xifaxan) 550 mg PO BID #60 tabs 01/05/24 spironolactone 25 mg tablet 12.5 mg (1/2 x 25 mg) PO DAILY #30 01/05/24 tabs tiotropium bromide 18 mcg capsule 1 cap inhalation DAILY #30 puffs 01/05/24 with inhalation device (Spiriva with HandiHaler) Allergies Allergy/AdvReac Type Severity Reaction Status Date / Time Penicillins Allergy Mild Verified 06/13/23 10:04 [facility] Disclaimer: The information contained in this section may have been updated after the patient was seen, as this information can be updated by other users. Medical History (Updated 03/10/24 @ 11:58 by Wilbur Angela MD) CKD (chronic kidney disease) Portal hypertension Hemiplegia affecting right dominant side Secondary hyperaldosteronism Dementia Cirrhosis COPD (chronic obstructive pulmonary disease) Epilepsy Surgical History History of cholecystectomy H/O total hysterectomy History of left hip replacement Family History Other Cancer Heart attack Hypertension Social History (Updated 01/02/24 @ 01:02 by Shannon Camacho RN) Smoking Status: Former smoker alcohol intake: never substance use type: denies use current occupational status: unemployed, retired and disabled Travel in the last 8 weeks: None ROS Obtained: Yes All systems reviewed & no additional complaints except as documented Physical Exam General General appearance: alert and in no apparent distress Head Head exam: atraumatic and normocephalic Eye Eye exam: Present normal appearance, PERRL and EOMI Neck Neck exam: Present normal inspection, full ROM and trachea midline Respiratory Respiratory exam: Present wheezes (Diffuse, bilateral throughout expiratory phase) and prolonged expiratory phase; Absent respiratory distress, stridor or accessory muscle use Cardiovascular Cardiovascular exam: Present regular rate, normal rhythm and other (Pulses equal symmetric in upper and lower extremities) Abdominal Exam Abdominal exam: Present soft and distention; Absent tenderness, guarding, rebound, rigidity or pulsatile mass Extremities Exam Extremities exam: Present edema (1+ lower extremity pitting edema) Neurological Exam Neurological exam: Present alert, oriented X3 and CN II-XII intact; Absent motor sensory deficit Skin Skin exam: Present warm and dry; Absent diaphoresis or erythema Medical Decision Making Medical Records Medical records reviewed: Yes I reviewed the patient's medical records. Screening: Per USPSTF and CDC recommendations, given the prevalence of disease in our region, it is our hospital?s policy to screen for HIV and viral Hepatitis for all patients aged 18 and over and those with ongoing risk factors. [place] Inquiry Pt receiving controlled substance: No Marcellus was queried for this patient: No Vital Signs: 03/10/24 08:44 03/10/24 08:48 03/10/24 09:00 Temperature 98.1 F Temperature Source Oral Pulse Rate 87 76 Pulse Rate [Right] 85 Respiratory Rate 22 Blood Pressure 145/68 H 151/76 H Blood Pressure [Right Arm] 145/68 H Blood Pressure Mean [Right Arm] 93 02 Sat by Pulse Oximetry 94 L 95 95 Oxygen Delivery Method Room Air Room Air Room Air 03/10/24 09:30 03/10/24 10:00 03/10/24 10:30 Temperature Temperature Source Pulse Rate 75 73 76 Pulse Rate [Right] Respiratory Rate Blood Pressure 150/83 H 154/74 H 143/78 H Blood Pressure [Right Arm] Blood Pressure Mean [Right Arm] 02 Sat by Pulse Oximetry 95 95 94 L Oxygen Delivery Method Room Air 03/10/24 11:00 03/10/24 11:14 03/10/24 11:30 Temperature Temperature Source Pulse Rate 73 83 75 Pulse Rate [Right] Respiratory Rate Blood Pressure 143/84 H 148/77 H 157/86 H Blood Pressure [Right Arm] Blood Pressure Mean [Right Arm] 02 Sat by Pulse Oximetry 95 96 95 Oxygen Delivery Method Lab Data Lab Results 03/10/24 08:52: WBC 9.1, RBC 3.46 L, Hgb 10.3 L, Hct 33.8 L, MCV 97.9, MCH 29.8, MCHC 30.4 L, RDW 16.5, Plt Count 141 L, MPV 7.2 L, Neut % (Auto) 78.3, Lymph % (Auto) 13.7, Todd % (Auto) 5.3, Eos % (Auto) 2.5, Baso % (Auto) 0.3, Neut # (Auto) 7.1, Lymph # (Auto) 1.2, Todd # (Auto) 0.5, Eos # (Auto) 0.2, Baso # (Auto) 0.0, Sodium 139, Potassium 2.9 L*, Chloride 108 H, Carbon Dioxide 31 H, Anion Gap 2.9 L, BUN 21 H, Creatinine 1.30 H, Estimated Creat Clear 33, Estimated GFR 40 L, Est GFR ( Amer) 48 L, Glucose 91, Calcium 8.0 L, Total Bilirubin 0.9, AST 47 H, ALT 34, Alkaline Phosphatase 181 H, Troponin I 0.03, NT-Pro-B Natriuret Pep 5180 H, Total Protein 5.4 L, Albumin 2.3 L, Globulin 3.1, Albumin/Globulin Ratio 0.7 L, HIV 1&2 Antibody Rapid Nonreactive 03/10/24 09:14: VBG pH 7.29 L, VBG pCO2 54.3 H, VBG pO2 54.2 H, VBG HCO3 25.7, VBG Total CO2 27.4 H, VBG O2 Saturation 83.8 H, VBG Base Excess -0.8, VBG Lactic Acid 2.4 H 03/10/24 09:30: Ammonia 26 03/10/24 11:18: VBG pH 7.31, VBG pCO2 55.6 H, VBG pO2 34.9, VBG HCO3 27.5, VBG Total CO2 29.2 H, VBG O2 Saturation 60.5, VBG Base Excess 1.3, VBG Lactic Acid 2.4 H 03/10/24 08:52 03/10/24 08:52 Orders (Tests/Meds): ED MEDICATIONS Generic Name Dose Route Start Last Admin Trade Name Freq PRN Reason Stop Dose Admin Acetaminophen 650 mg 03/10/24 11:40 Acetaminophen 325mg Tab PO 04/09/24 11:39 Q4HP PRN Fever or Mild Pain (1-3) Hydrocodone Bitart/Acetaminophen 2 tab 03/10/24 11:40 Hydrocodone/Apap 5/325 Mg Tablet PO 04/09/24 11:39 Q4HP PRN Severe Pain (7-10) Enoxaparin Sodium 40 mg 03/11/24 09:00 Enoxaparin 40mg/0.4ml Syringe SQ 04/10/24 08:59 DAILY DOYLE Potassium Chloride/Water 100 mls @ 100 mls/hr 03/10/24 10:36 03/10/24 10:51 Potassium Chloride 10meq/100ml Ivpb IV 03/10/24 12:35 100 mls/hr Q1H DOYLE Administration Ondansetron HCl 4 mg 03/10/24 11:40 Ondansetron 4mg/2ml Vial IV 04/09/24 11:39 Q8HP PRN Nausea Discontinued Medications Generic Name Dose Route Start Last Admin Trade Name Freq PRN Reason Stop Dose Admin Albuterol/Ipratropium 9 ml 03/10/24 08:57 03/10/24 09:14 Ipratropium/Albuterol 3 Ml Neb IH 03/10/24 08:58 9 ml ONCE ONE Administration Furosemide 60 mg 03/10/24 10:16 03/10/24 10:27 Furosemide 40mg/4ml Vial IV 03/10/24 10:17 60 mg ONCE ONE Administration Ceftriaxone Sodium 2 gm/ 100 mls @ 200 mls/hr 03/10/24 09:39 03/10/24 09:45 Sodium Chloride IV 03/10/24 10:08 200 mls/hr ONCE ONE Administration Methylprednisolone Sodium Succinate 125 mg 03/10/24 08:57 03/10/24 09:14 Methylprednisolone Sod Succ 125mg Vial IV 03/10/24 08:58 125 mg ONCE ONE Administration Potassium Chloride 60 meq 03/10/24 10:35 03/10/24 10:51 Potassium Chloride 20meq Tab PO 03/10/24 10:36 60 meq ONCE ONE Administration ORDERS Category Date Time Status CXR --portable [XR chest portable] Stat Exams 03/10/24 08:57 Completed POCUS Point of Care (ER Only) Stat Exams 03/10/24 08:57 Completed Ammonia Stat Lab 03/10/24 09:30 Completed CBC w/Auto Diff [Complete Blood Count Auto Diff] Stat Lab 03/10/24 08:52 Completed CMP [Comprehensive Metabolic Panel] Stat Lab 03/10/24 08:52 Completed Complete Blood Count Auto Diff AMLAB Lab 03/11/24 06:00 Ordered Comprehensive Metabolic Panel AMLAB Lab 03/11/24 06:00 Ordered HIV (1&2) Antibody Rapid Stat Lab 03/10/24 08:52 Completed Hep C Ab with Reflex to RNA Stat Lab 03/10/24 08:52 Received Magnesium AMLAB Lab 03/11/24 06:00 Ordered NT Pro Brain Natriuretic Pep. Stat Lab 03/10/24 08:52 Completed Trop I [Troponin I] Stat Lab 03/10/24 08:52 Completed Troponin I Q3H Lab 03/10/24 12:00 Ordered Troponin I Q3H Lab 03/10/24 15:00 Ordered UA [Urinalysis and Microscopic] Stat Lab 03/10/24 08:57 Ordered VBG [Venous Blood Gas] Stat RT 03/10/24 09:14 Completed VBG [Venous Blood Gas] Stat RT 03/10/24 11:18 Completed Medical Decision Narrative: 73-year-old female history of COPD not on oxygen hypertension, hyperlipidemia, medication induced hepatic cirrhosis, CKD, dementia presenting with concern for abdominal swelling and shortness of breath. Family at bedside corroborating and providing most of history. Patient states that she has felt short of breath the past couple of days, having productive cough and worsening abdominal distention. Denies chest pain, abdominal pain, dysuria, hematuria, diarrhea, constipation, vomiting, recent sick contacts. Family states that patient's abdomen seems as if its gotten incredibly swollen just since last night and they noticed that today, 03/10, patient began having labored breathing, in addition to this. Patient has only needed 1 paracentesis in the past. History was obtained via conversation with patient and family. On arrival, patient hemodynamically stable, alert, oriented to person, appropriate, GCS 15, moving all extremities spontaneously, pupils equal and reactive to light. Full physical exam performed and significant for chronically ill-appearing female who is in no acute distress. No evidence of jaundice or scleral icterus. Bilateral diffuse expiratory wheezes with prolonged expiratory phase. Abdomen is soft, nontender, but distended. She does have umbilical hernia present that is reducible and nontender. Differential includes COPD, CHF, bronchitis, pneumonia, fluid overload, UTI, metabolic abnormality, medication noncompliance, among others Patient placed on continuous cardiac monitoring and continuous pulse ox with initial blood pressure 145/68, heart rate 85, saturation 94% on room air. Patient was given DuoNebs, Solu-Medrol for symptomatic management and correction of underlying abnormalities. On reevaluation around 9:45 AM, patient's lungs sound better, improved work of breathing. Abdominal ultrasound with ascites, no fluid pocket deeper than 2 cm perpendicular to abdominal wall. Not amenable to drainage. Workup independently interpreted and significant for nonactionable CBC with stable counts. Patient's chemistry with hypokalemia 2.9, this was repleted. Patient's kidney function stable CKD creatinine 1.3. LFTs stable as well. Patient's troponin normal at 0.03, BNP elevated at 5180, patient given 60 mg IV Lasix. On independent interpretation of imaging, no acute cardiopulmonary space disease. See radiology read for full review of final results. On reevaluation, patient continuing to have wheezing, but much louder and decreased respiratory effort. Repeat VBG pH improved, but CO2 mildly elevated as compared to previous. More DuoNebs were administered. Bladder scan performed, patient had greater than 600 mL in the bladder, PureWick placed, void trial was attempted, but unsuccessful. Catheter was placed. Patient covered in stool, C. difficile panel was sent. On reevaluation, patient does appear to be breathing better. Given patient presentation, workup, history, this most likely represents CHF exacerbation, COPD exacerbation, acute hypercapnic respiratory failure, fluid overloaded state, urinary retention. Hospital medicine was contacted and case was discussed at length. I feel patient is appropriate for inpatient management given host of comorbidities, CHF exacerbation necessitating diuresis and close monitoring of electrolytes including potassium which was low today and needed repletion. Patient also has continued increased work of breathing, although improved, and necessitating multiple DuoNebs. All of this in the setting of needing closely monitored input and output with urinary retention and need for catheterization placement. I spoke to hospitalist, agreeable to admission and observation. Event Planning Manager disclaimer Much of this encounter note is an electronic residential carpenter spoken language to printed text. Electronic residential carpenter of the spoken language may permit errors. Although I have reviewed the note, some errors may still exist. Procedures Limited Ultrasound Indication:: Limited EFAST ultrasound Indication: Distention, cirrhosis Views: LUQ, RUQ, Pelvis Interpretation: Peritoneal free fluid present Maximum perpendicular fluid pocket 2 cm Appears to have urinary retention Impression: Abdominal ascites without pocket amenable to drainage or sampling Images were saved to permanent archive The study was technically adequate CPT 97449-21 (limited abdominal) This study was performed by me, and I personally interpreted all images/videos. Based on my clinical judgement, these images were adequate and did not necessitate further imaging Critical Care Critical Care Time Critical Care Time: No
--- NOTE | 2024-03-10 08:52 | PC.NURSE ---
DR MAGANA AT BEDSIDE
--- NOTE | 2024-03-10 08:57 | XR_ITS ---
FINAL REPORT CLINICAL HISTORY: Shortness of breath, cough COMPARISON: 01/03/2024 FINDINGS: The heart size is normal. The mediastinum is normal. There is scarring or atelectasis at the bases. There are no pleural effusions. There is no pneumothorax. There is no osseous abnormality. IMPRESSION: No acute cardiopulmonary process Reviewed, Interpreted and Dictated by Kane Mejia MD Transcribed by Sandee Lassiter Authenticated and [facility]
[2024-03-10] MEDS: METHYLPREDNISOLONE SOD SUCC 125MG VIAL 125 MG IV (09:14)
[2024-03-10] MEDS: IPRATROPIUM/ALBUTEROL 3 ML NEB 9 ML IH (09:14)
[2024-03-10 09:16] LABS: Basophils % 0.3 % (0.1-2.0); Eosinophils # 0.2 K/mm3 (0.0-0.4); Eosinophils % 2.5 % (0.1-12.0); Hematocrit 33.8 % (37.0-47.0); Hemoglobin 10.3 g/dL (12.2-16.2); Lymphocytes # 1.2 K/mm3 (0.7-4.5); Lymphocytes % 13.7 % (10-50); Mean Corpuscular HGB Conc 30.4 g/dL (31.8-35.4); Mean Corpuscular Hemoglobin 29.8 pg (27.0-31.2); Mean Corpuscular Volume 97.9 fl (81-99); Mean Platelet Volume 7.2 fl (7.4-10.4); Monocytes # 0.5 K/mm3 (0.1-1.0); Monocytes % 5.3 % (1.7-9.3); Neutrophils # 7.1 K/mm3 (1.8-7.8); Neutrophils % 78.3 % (37.0-80.0); Platelet Count 141 K/mm3 (142-424); Red Blood Count 3.46 M/mm3 (4.20-5.40); Red Cell Distribution Width 16.5 % (11.5-17.5); White Blood Count 9.1 K/mm3 (4.8-10.8)
[2024-03-10 09:21] LABS: VBG Base Excess -0.8 mmol/L (-2.4-2.3); VBG HCO3 25.7 mmol/L (23-30); VBG Oxygen Saturation 83.8 % (50-70); VBG PH 7.29 mmol/L (7.31-7.41); VBG PO2 54.2 mmol/L (28-40); VBG Total CO2 27.4 mmol/L (23-27)
[2024-03-10 09:23] LABS: Alanine Aminotransferase 34 U/L (12-78); Albumin Level 2.3 g/dl (3.5-5.0); Albumin/Globulin Ratio 0.7 (1.1-1.8); Alkaline Phosphatase 181 U/L (38-126); Aspartate Amino Transferase 47 U/L (14-36); Bilirubin,Total 0.9 mg/dl (0.2-1.3); Blood Urea Nitrogen 21 mg/dl (7-17); Carbon Dioxide 31 mmol/L (22.0-30.0); Chloride 108 mmol/L (98-107); Creatinine Clearance Estimated 33 mL/min (50-200); Estimated Glomerular Filt Rate 40 ml/min (>60); GFR (African American) 48 ML/MIN (>60); Globulin 3.1 g/dL (1.3-3.2); Glucose 91 mg/dl (74-100); Sodium 139 mmol/L (136-145); Total Protein,Serum 5.4 g/dl (6.3-8.2)
[2024-03-10 09:27] LABS: Lactate Venous 2.4 mmol/L (0.4-2.0); VBG PCO2 54.3 mmol/L (35-51)
[2024-03-10 09:33] LABS: NT Pro Brain Natriuretic Pep. 5180 pg/mL (0-125)
[2024-03-10 09:35] LABS: Troponin I 0.03 ng/ml (0.00-0.034)
--- NOTE | 2024-03-10 09:43 | PC.NURSE ---
Dr. Angela at bedside for US
[2024-03-10] MEDS: CEFTRIAXONE SODIUM 2 GM in 0.9 % SODIUM CHLORIDE 100 ML IV (09:45)
[2024-03-10 09:56] LABS: Ammonia 26 umol/L (9-30)
[2024-03-10 10:24] LABS: Anion Gap 2.9 mEq/L (5-15)
--- NOTE | 2024-03-10 10:25 | PC.NURSE ---
CRITICAL K+ 2.9 RECEIVED FROM SUSAN FROM LAB. PT NAME AND R/V. DR MAGANA NOTIFIED
[2024-03-10 10:26] LABS: Potassium 2.9 mmoL/L (3.5-5.1)
[2024-03-10] MEDS: FUROSEMIDE 40MG/4ML VIAL 60 MG IV (10:27)
--- NOTE | 2024-03-10 10:41 | PC.NURSE ---
ABDOMINAL DISTENTION NOTED PRIOR TO PLACEMENT OF PUREWIK, BLADDER SCAN 560ML OR GREATER. ATTENDS CHANGED, BUTTOCKS EXCORIATED. BARRIER CREAM APPLIED. PUREWIK IN PLACE AND DRY CHUX PLACED UNDER PLACEMENT
[2024-03-10] MEDS: POTASSIUM CHLORIDE 20MEQ TAB 60 MEQ PO (10:51)
[2024-03-10] MEDS: KCl 10mEq/100ml 100 ML 100 MEQ IV ×2 (10:51→12:25)
[2024-03-10 11:17] LABS: HIV (1&2) Antibody Rapid NONREACTIVE (NONREACTIVE)
[2024-03-10 11:31] LABS: VBG Base Excess 1.3 mmol/L (-2.4-2.3); VBG HCO3 27.5 mmol/L (23-30); VBG Oxygen Saturation 60.5 % (50-70); VBG PH 7.31 mmol/L (7.31-7.41); VBG PO2 34.9 mmol/L (28-40); VBG Total CO2 29.2 mmol/L (23-27)
[2024-03-10 11:33] LABS: Lactate Venous 2.4 mmol/L (0.4-2.0); VBG PCO2 55.6 mmol/L (35-51)
--- NOTE | 2024-03-10 11:33 | PC.NURSE ---
Critical VBG results given to Dr. Angela
--- NOTE | 2024-03-10 11:41 | PC.NURSE ---
DETECTOR CAR OPERATOR NOTIFIED OF ADMISSION
[2024-03-10 12:01] LABS: Microscopic, Urine URINE MICROSCOPIC (MICROSCOPIC)
--- NOTE | 2024-03-10 12:03 | HMH.PHAINT1 ---
Pharmacy Intervention Comments: MEDICATION RECONCILIATION COMPLETED ON PATIENT USING EXTERNAL FILL HISTORY FROM PHARMACY AND CYNTHIA REPORT. -ADALID PAUL, ALVAROD
[2024-03-10 12:05] LABS: Appearance,Urine CLEAR (Clear); Bilirubin,Urine Negative (Negative); Blood, Urine 3+ (Negative); Color,Urine YELLOW (Yellow); Glucose,Urine (UA) Negative (Negative); Ketones,Urine Negative (Negative); Leukocyte Esterase,Urine Negative (Negative); Nitrate,Urine POSITIVE (Negative); PH,Urine 5.5 (5.0-8.5); Protein,Urine TRACE (Negative); Urobilinogen,Urine 0.2 EU/dl (0.2)
--- NOTE | 2024-03-10 12:06 | PC.NURSE ---
report called to Latisha
--- NOTE | 2024-03-10 12:44 | PC.NURSE ---
arrived by stretcher from ED
[2024-03-10 13:11] LABS: Troponin I 0.03 ng/ml (0.00-0.034)
[2024-03-10 13:25] LABS: Reflex Lactic Add Lactic Reflex
[2024-03-10 13:27] LABS: Bacteria,Urine Trace /lpf; Squamous Epithelial Cell,Urine Occasional #/hpf (0-5); WBC,Urine Occasional #/hpf (0-3)
[2024-03-10 13:53] LABS: Lactic Acid Follow Up (RFLX 1) 2.8 mmol/L (0.7-2.1)
--- NOTE | 2024-03-10 15:06 | EXP.HP ---
History of Present Illness *Admission Date: 03/10/24 *Reason for visit:: Heart failure exacerbation, hypokalemia *History of present illness: Sarah South is a 74-year-old female with a medical history significant for medication induced hepatic cirrhosis, hypertension, hyperlipidemia, CKD, dementia presents to the ED with worsening shortness of breath over the past few days. Patient states symptoms began about 3 days ago and have gotten worse, denies fevers, cough, dizziness. She does endorse central chest pain radiating to the left shoulder. Denies cardiac history including [place], stents. Also denies history of COPD (currently not on home inhalers) but continues to smoke half a pack of cigarettes a day for many years. She also states that she needs to sleep on multiple pillows otherwise she will have shortness of breath, ongoing for many months. Denies history of heart failure. Patient also endorses decreased urinary frequency with dysuria ongoing for the past few days. She also reports a fall at home about a week ago with some mild bruising in lower extremities. She lives at home by herself. Workup in the ED significant for BNP 5180, potassium 2.9, elevated PCO2 but compensated pH, troponin 0.03. CXR does not reveal acute pulmonary process. She was given breathing treatments and Solu-Medrol for suspected COPD exacerbation with some improvement. On room air. Also given IV Lasix 60 mg for suspected heart failure exacerbation. Case discussed with ED attending, and given that patient lives at home with advanced dementia and presenting with likely COPD/CHF exacerbation with hypokalemia decision was made to admit patient for observation to the hospital medicine team. [facility] Disclaimer: The information contained in this section may have been updated after the patient was seen, as this information can be updated by other users. Medical History CKD (chronic kidney disease) Portal hypertension Hemiplegia affecting right dominant side Secondary hyperaldosteronism Dementia Cirrhosis COPD (chronic obstructive pulmonary disease) Epilepsy Surgical History History of cholecystectomy H/O total hysterectomy History of left hip replacement Family History Other Cancer Heart attack Hypertension Social History Smoking Status: Former smoker alcohol intake: never substance use type: denies use current occupational status: unemployed, retired and disabled Travel in the last 8 weeks: None Meds Home Medications and Allergies Home Medications ?Medication ?Instructions ?Recorded ?Confirmed ?Type omeprazole 20 mg capsule,delayed 20 mg PO DAILY #90 caps 07/03/23 03/10/24 Rx release aripiprazole 5 mg tablet 5 mg PO DAILY 01/02/24 03/10/24 History cholecalciferol (vitamin D3) 50 2,000 unit PO DAILY 01/02/24 03/10/24 History mcg (2,000 unit) tablet escitalopram oxalate 10 mg tablet 10 mg PO DAILY 01/02/24 03/10/24 History fluticasone furoate 100 1 inh inhalation DAILY 01/02/24 03/10/24 History mcg-vilanterol 25 mcg/dose inhalation powder (Breo Ellipta) levetiracetam 750 mg tablet 750 mg PO BID 01/02/24 03/10/24 History memantine 5 mg tablet 5 mg PO DAILY 01/02/24 03/10/24 History montelukast 10 mg tablet 10 mg PO HS 01/02/24 03/10/24 History rifaximin 550 mg tablet (Xifaxan) 550 mg PO BID #60 tabs 01/05/24 03/10/24 Rx ferrous sulfate 325 mg (65 mg 325 mg PO DAILY 03/10/24 03/10/24 History iron) tablet (FeroSul) furosemide 20 mg tablet 20 mg PO Q48H 03/10/24 03/10/24 History New Prescriptions to Start Prescriptions: Allergies Allergy/AdvReac Type Severity Reaction Status Date / Time Penicillins Allergy Mild Verified 06/13/23 10:04 Exam Data for Last 24 hours Vital signs and Labs for Last 24 Hours: Temp Pulse Resp BP Pulse Ox O2 Del Method 98.1 F 72 19 111/69 99 Room Air 03/10/24 12:54 03/10/24 12:54 03/10/24 12:54 03/10/24 12:54 03/10/24 12:54 03/10/24 13:33 Laboratory Results - last 24 hr 03/10/24 08:52: WBC 9.1, RBC 3.46 L, Hgb 10.3 L, Hct 33.8 L, MCV 97.9, MCH 29.8, MCHC 30.4 L, RDW 16.5, Plt Count 141 L, MPV 7.2 L, Neut % (Auto) 78.3, Lymph % (Auto) 13.7, [place] % (Auto) 5.3, Eos % (Auto) 2.5, Baso % (Auto) 0.3, Neut # (Auto) 7.1, Lymph # (Auto) 1.2, [place] # (Auto) 0.5, Eos # (Auto) 0.2, Baso # (Auto) 0.0, Sodium 139, Potassium 2.9 L*, Chloride 108 H, Carbon Dioxide 31 H, Anion Gap 2.9 L, BUN 21 H, Creatinine 1.30 H, Estimated Creat Clear 33, Estimated GFR 40 L, Est GFR ( Amer) 48 L, Glucose 91, Calcium 8.0 L, Total Bilirubin 0.9, AST 47 H, ALT 34, Alkaline Phosphatase 181 H, Troponin I 0.03, NT-Pro-B Natriuret Pep 5180 H, Total Protein 5.4 L, Albumin 2.3 L, Globulin 3.1, Albumin/Globulin Ratio 0.7 L, HIV 1&2 Antibody Rapid Nonreactive 03/10/24 09:14: VBG pH 7.29 L, VBG pCO2 54.3 H, VBG pO2 54.2 H, VBG HCO3 25.7, VBG Total CO2 27.4 H, VBG O2 Saturation 83.8 H, VBG Base Excess -0.8, VBG Lactic Acid 2.4 H 03/10/24 09:30: Ammonia 26 03/10/24 11:18: VBG pH 7.31, VBG pCO2 55.6 H, VBG pO2 34.9, VBG HCO3 27.5, VBG Total CO2 29.2 H, VBG O2 Saturation 60.5, VBG Base Excess 1.3, VBG Lactic Acid 2.4 H 03/10/24 12:00: Urine Color Yellow, Urine Appearance Clear, Urine pH 5.5, Ur Specific [place] 1.010, Urine Protein Trace, Urine Glucose (UA) Negative, Urine Ketones Negative, Urine Blood 3+ A, Urine Nitrate Positive, Urine Bilirubin Negative, Urine Urobilinogen 0.2, Ur Leukocyte Esterase Negative, Urine RBC 5-10, Urine WBC Occasional, Ur Squamous Epith Cells Occasional, Urine Bacteria Trace 03/10/24 12:30: Troponin I 0.03 03/10/24 13:36: Lactate 2.8 H I & O for Last 24 hours: Intake & Output 03/07/24 03/08/24 03/09/24 03/10/24 23:59 23:59 23:59 23:59 Weight 64.949 kg Constitutional Constitutional: no acute distress *Routine HEENT Exam Head: Present normocephalic Eye: Present EOMI and PERRL ENT: Present mucous membranes moist *Routine Neck Exam Neck: Present supple; Absent lymphadenopathy *Routine Respiratory Exam Respiratory: Present prolonged expiratory phase, wheezes and diminished air movement; Absent CTA bilaterally *Routine Cardiovascular Exam Cardiovascular: Present RRR *Routine Abdominal Exam Abdominal: Present soft and normoactive bowel sounds; Absent tenderness *Routine Rectal Exam Rectal:: deferred *Routine Genitalia Exam Genitalia:: deferred *Routine Extremities Exam Extremities: Absent cyanosis, clubbing or edema *Routine Skin Exam Skin: Present warm; Absent rash *Routine Neurological Exam Neurological: Present alert Assessment and Plan *Assessment and plan (1) Acute urinary retention: Status: Acute Category: Medical Code(s): R33.8 - Other retention of urine (2) Acute exacerbation of chronic obstructive pulmonary disease: Status: Acute Category: Medical Code(s): J44.1 - Chronic obstructive pulmonary disease with (acute) exacerbation (3) CHF exacerbation: Status: Acute Category: Medical Code(s): I50.9 - Heart failure, unspecified Plan Sarah South is a 74-year-old female with a medical history significant for medication induced hepatic cirrhosis, hypertension, hyperlipidemia, CKD, dementia presents to the ED with worsening shortness of breath over the past few days. Case discussed with ED attending, and given that patient lives at home with advanced dementia and presenting with likely COPD/CHF exacerbation with hypokalemia decision was made to admit patient for observation to the hospital medicine team. #HFpEF exacerbation ? Presented with 1 week history of worsening shortness of breath, and history of orthopnea and lower extremity edema. ? BNP 5180 with 2+ lower extremity pitting edema. No pulmonary edema per CXR and exam, on room air. ? ECHO 01/02/2024 revealed normal biventricular systolic function, LVEF 60%. ? Takes Lasix 20 mg every other day at home. Plan: ? IV Lasix 40 mg twice daily. ? Follow-up limited ECHO. ? Follow-up TSH in the morning. ? Continue to treat hypertension, currently stable. ? Monitor electrolytes, renal function. Replete electrolytes as needed. #Acute COPD exacerbation ? Decreased air movement with moderate wheezing on bilateral lung rosado. Initial VBG revealed respiratory acidosis with hypercarbia which resolved after breathing treatments. ? Longstanding history of smoking, currently smokes half pack cigarette a day. ? DuoNebs scheduled and as as needed. ? Prednisone/steroids day 06/27. - Continue home Breo Ellipta. ? Antibiotics not indicated at this time given no purulent sputum. ? Patient will need rescue and maintenance inhaler upon discharge. ? Currently on room air. #Urinary retention #UTI ? Patient endorses dysuria with decreased urinary frequency over the past few days. ? Bladder scan in the ED revealed 600 mL with patient not able to void. Blackburn placed. ? UA has 3+ blood which could also be from traumatic Blackburn insertion, not otherwise suggestive of infection. However, given dysuria and decreased frequency with retention we will treat for UTI and follow-up urine cultures. ? Ceftriaxone day 06/27. ? Follow-up urine cultures, discontinue antibiotics if normal darshan. #Dementia #Falls at home ? Patient lives at home by herself and claims that she is able to ambulate by herself. However, she states that she has had falls in the past weeks and possibly more. ? PT/OT consulted, pending recommendations. ? Case management consulted, patient may benefit from placement. #History of medication induced cirrhosis ? Continue home rifaximin. Not decompensated at this time. LFTs stable. #Seizure disorder ? Continue home Keppra 750 mg twice daily. CODE STATUS: DNR Diet: Cardiac DVT prophylaxis: Lovenox 40 mg
--- NOTE | 2024-03-10 15:23 | PC.NURSE ---
PT GOING DOWN TO SURGERY
[2024-03-10 15:31] LABS: Adenovirus F 40/41, stool Not Detected (NotDetected); Astrovirus Not Detected (NotDetected); Campylobacter Not Detected (NotDetected); Clostridium Difficile A/B, PCR Not Detected (NotDetected); Cryptosporidium Not Detected (NotDetected); Cyclospora Cayetanesis Not Detected (NotDetected); Entamoeba histolytica Not Detected (NotDetected); Enteroaggregative E coli Not Detected (NotDetected); Enteropathogenic E coli Not Detected (NotDetected); Enterotoxigenic E coli Not Detected (NotDetected); Giardia lamblia Not Detected (NotDetected); Norovirus Not Detected (NotDetected); Plesimonas Shigalloides, PCR Not Detected (NotDetected); Rotavirus A Not Detected (NotDetected); Salmonella, PCR Not Detected (NotDetected); Sapovirus Not Detected (NotDetected); Shiga-like toxin E coli Not Detected (NotDetected); Shigella Enterovasive E coli Not Detected (NotDetected); Vibrio Cholerae Not Detected (NotDetected); Vibrio, PCR Not Detected (NotDetected); Yersinia Entercolitica, PCR Not Detected (NotDetected)
[2024-03-10 15:43] LABS: Reflex Lactic (2 hrs) Add Lactic Reflex
[2024-03-10 15:44] LABS: Troponin I 0.03 ng/ml (0.00-0.034)
--- NOTE | 2024-03-10 15:55 | CA_ITS ---
APPROVED REPORT EXAM: Limited 2D and color flow Echocardiogram Channel Development Manager: RT Capri(R) Ht: 5 ft 3 in Wt: 143lbs BSA: 1.68 BP: 111/69 mmHg Indications: COPD, CHF, CKD, dementia, smoker, HTN, hyperlipidemia, urinary retention. EF on echo 12/2023 60%. Limited echo to reassess EF 2D Dimensions IVSd 1.72 cm F: 0.6-1.0 LVEF (Visual) 47.50 % PWd 1.01 cm F: 0.6 - 1.0 EF AP4 65.10 % LVDd 2.82 cm F: 3.9 - 5.3 GL Strain -23.9 % LVDs 2.18 cm F: 2.2 - 3.5 LV Diastology E Decel Time 233 (160-240 msec) E/A Ratio 0.88 Mitral Valve MV A Velocity 94.0 (40-130 cm/s) E/A Ratio 0.88 Other Information Study Quality: Fair Conclusion This is a limited TTE to evaluate for LVEF. Limited windows were obtained. The left ventricle is normal in size. There is increased LV wall thickness. There is normal global LV systolic function. No regional wall motion abnormalities are noted. LVEF is 60%. The right ventricle is grossly normal in size and function. Electronically signed by : Giovanna Martinez MD 03/11/2024 00:23:26
[2024-03-10] MEDS: FUROSEMIDE 40MG/4ML VIAL 40 MG IV (17:00)
[2024-03-10] MEDS: MONTELUKAST SODIUM 10MG TAB 10 MG PO (17:00)
[2024-03-10 17:30] LABS: Lactic Acid Follow up (RFLX 2) 3.8 mmol/L (0.7-2.1)
--- NOTE | 2024-03-10 18:04 | PC.NURSE ---
pt is alert to self and situation. family has been at bedside majority of the shift. pt has dementia and is pleasantly confused at times. pt has requested numerous pepsis this shift and has refused water. moser in place and draining adequate pale yellow urine. pt has not complained of pain this shift. one bm this afternoon. room air with sats >90%. pt has no complaints at this time. call light in reach. bed in low and locked position.
[2024-03-10] MEDS: IPRATROPIUM/ALBUTEROL 3 ML NEB IH ×2 (18:40→23:15)
[2024-03-10] MEDS: ONDANSETRON 4MG/2ML VIAL 4 MG IV (21:59)
[2024-03-10] MEDS: levETIRAcetam 500 MG TABLET 750 MG PO (21:59)
[2024-03-10] MEDS: RIFAXIMIN 550MG TABLET 550 MG PO (21:59)
[2024-03-10] MEDS: PANTOPRAZOLE 40MG TABLET 40 MG PO (21:59)
[2024-03-11] VITALS (11 sets, daily range): BP systolic 116–133; BP diastolic 63–85; PULSE 72–125; RESP 16–19; TEMP 36.7–37.2; O2SAT 89–98; BMI 24.7
--- NOTE | 2024-03-11 05:36 | PC.NURSE ---
Patient is alert and oriented to herself and situation. Patient has been pleasant but also slightly confused this shift. Patient was observed to be awake and lying in bed throughout the shift with even respirations and no apparent distress. Patient was given a bag of BBQ chips, vanilla pudding, and Pepsi for a bedtime snack. Patient voiced that she never went to sleep for the night. Patient complained of feeling sick to her stomach earlier this shift; Zofran was administered per AUG. Patient reported that she still felt like her stomach was rolling. Patient requested a ankush jessica; this was given. Patient reported no further relief, but increased shakiness was observed, and the patient stated that she was having a bit of trouble catching her breath. Patient's oxygen saturation had dropped to 89% at the time. 2 L of oxygen via nasal cannula was placed onto the patient at midnight. I checked on the patient at around 00:15, obtained her oxygen sat, and it was 98%. Patient was weaned down to 1 L of oxygen at 00:30 and continued to tolerate it well throughout the night. Shakiness had diminished. Patient has not had any further complaints of sickness thus far. Patient also received her scheduled medications per AUG. Patient has not reported any pain this shift. Upon auscultation, expiratory wheezing and diminished lung sounds were heard. Patient has been having a dry, intermittent cough this shift. Patient's bowel sounds were active. Blackburn catheter is in place; urine was noted to be clear and yellow. Patient's heart rate/rhythm is being monitored on telemetry. Patient has excoriation in her perineal/vaginal area. Pitting edema was noted in her bilateral ankles. No acute changes are noted thus far. Bed alarm on. Call light within reach.
[2024-03-11] MEDS: IPRATROPIUM/ALBUTEROL 3 ML NEB IH ×4 (06:11→23:00)
[2024-03-11] MEDS: HYDROCODONE/APAP 5/325 MG TABLET 1 TAB PO (06:53)
[2024-03-11 07:25] LABS: Basophils % 0.2 % (0.1-2.0); Eosinophils # 0.1 K/mm3 (0.0-0.4); Eosinophils % 0.5 % (0.1-12.0); Hematocrit 31.2 % (37.0-47.0); Hemoglobin 9.4 g/dL (12.2-16.2); Lymphocytes % 8.5 % (10-50); Mean Corpuscular HGB Conc 30.3 g/dL (31.8-35.4); Mean Corpuscular Hemoglobin 29.2 pg (27.0-31.2); Mean Corpuscular Volume 96.5 fl (81-99); Mean Platelet Volume 8.6 fl (7.4-10.4); Monocytes # 1.1 K/mm3 (0.1-1.0); Neutrophils # 9.7 K/mm3 (1.8-7.8); Neutrophils % 81.9 % (37.0-80.0); Platelet Count 140 K/mm3 (142-424); Red Blood Count 3.23 M/mm3 (4.20-5.40); Red Cell Distribution Width 16.4 % (11.5-17.5); White Blood Count 11.9 K/mm3 (4.8-10.8)
[2024-03-11 07:26] LABS: Alanine Aminotransferase 30 U/L (12-78); Albumin Level 2.2 g/dl (3.5-5.0); Albumin/Globulin Ratio 0.8 (1.1-1.8); Alkaline Phosphatase 168 U/L (38-126); Aspartate Amino Transferase 41 U/L (14-36); Bilirubin,Total 0.5 mg/dl (0.2-1.3); Blood Urea Nitrogen 23 mg/dl (7-17); Calcium 7.9 mg/dl (8.4-10.2); Carbon Dioxide 31 mmol/L (22.0-30.0); Chloride 108 mmol/L (98-107); Creatinine Clearance Estimated 29 mL/min (50-200); Estimated Glomerular Filt Rate 29 ml/min (>60); GFR (African American) 36 ML/MIN (>60); Globulin 2.9 g/dL (1.3-3.2); Glucose 98 mg/dl (74-100); Magnesium 1.6 mg/dl (1.6-2.3); Sodium 138 mmol/L (136-145); Total Protein,Serum 5.1 g/dl (6.3-8.2)
[2024-03-11 07:28] LABS: Lactic Acid 1.5 mmol/L (0.7-2.1)
--- NOTE | 2024-03-11 07:59 | HMH.PTEV ---
Physical Therapy Evaluation Rehab PT IP Evaluation Start: 03/10/24 15:55 Freq: ONCE Status: Active Protocol: Document 03/11/24 07:45 ALONZO (Rec: 03/11/24 07:58 ALONZO [id number]) Subjective/History History History Per H&P: Sarah South is a 74-year-old female with a medical history significant for medication induced hepatic cirrhosis, hypertension, hyperlipidemia, CKD, dementia presents to the ED with worsening shortness of breath over the past few days. Patient states symptoms began about 3 days ago and have gotten worse, denies fevers, cough, dizziness. She does endorse central chest pain radiating to the left shoulder . Denies cardiac history including [place], stents. Also denies history of COPD ( currently not on home inhalers ) but continues to smoke half a pack of cigarettes a day for many years. She also states that she needs to sleep on multiple pillows otherwise she will have shortness of breath , ongoing for many months. Denies history of heart failure. Patient also endorses decreased urinary frequency with dysuria ongoing for the past few days. She also reports a fall at home about a week ago with some mild bruising in lower extremities. She lives at home by herself. Subjective Subjective Pt oriented to self. Pt is a questionable historian d/t inconsistent answers at times. Pt reports she lives in a single story home with 0 TRACY. Pt used a cane for IND ambulation and denies any falls in past month. Pt reports she still drives. Pt stated I' can't to most mobility requests. Self- limiting behaviors displayed likely secondary to confusion at this time. New diagnosis of cancer in past 12 No months? Rehab PT IP Eval Objective Appearance Patient Behavior Appropriate,Confused Patient Orientation Person Difficulty following instructions mild Speech Pattern Clear Ambulation Patient Able to Ambulate No Balance Ability to Arise Able, uses arms to help Sitting Balance Steady, safe Standing Balance Unsteady Transfers Bed Transfer Ability Minimal x 1 (25% assist) Rehab PT IP prob,goals,plan Problems Date of Evaluation: 03/11/24 PT IP Problems Bed Mobility,Transfers,Gait, Balance,Self care,Safety Rehab Potential Rehab Potential Good Equipment Needs Assistive Devices Rolling / Wheeled Walker Plan PT Intervention Plan Bed Mobility,Transfers,Gait, Balance,Self care,Safety, Therapeutic Exercise Other Intervention Plan 1-2 times PT Plan Frequency Daily Duration LOS Discharge Goals Bed Transfer Ability Contact Guard/Hand Hold Sit to Stand Chair Transfer Ability Moderate x 1 (50% assist) Ambulation Assistive Device Rolling Walker Ambulation Distance (feet) 5 Discharge Plan PT Discharge Plan Initial physical therapy evaluation performed. Patient presents below baseline at this time in functional mobility, transfers, and strength. Pt required VCs for sequencing and technique to perform supine>sit EOB. Pt unable to stand at this time. It was not clear if mobility was limited by significant weakness or current cog deficits. Pt not safe to return home at this time d/t current level of functional mobility. PT recommending short-term rehabilitation stay upon d/c from [facility]. Pt would benefit from skilled PT while at [facility] to prevent further functional decline and maximize safety with mobility. Eval Complexity Eval Charge Codes 49072 - Moderate Complexity PHYSICIAN CERTIFICATION: I certify the specified therapy services for Sarah Randall are required, authorized, and reviewed every 30 days.
[2024-03-11] MEDS: CEFTRIAXONE 1 GM 1 GM in 0.9 % SODIUM CHLORIDE 50 ML IV (08:30)
[2024-03-11] MEDS: MEMANTINE 10MG TABLET 5 MG PO (08:30)
[2024-03-11] MEDS: RIFAXIMIN 550MG TABLET 550 MG PO ×2 (08:31→21:58)
[2024-03-11] MEDS: POTASSIUM CHLORIDE 20MEQ TAB 40 MEQ PO (08:31)
[2024-03-11] MEDS: FUROSEMIDE 40MG/4ML VIAL 40 MG IV (08:31)
[2024-03-11] MEDS: FERROUS SULFATE 325MG TABLET 325 MG PO (08:32)
[2024-03-11] MEDS: ACETAMINOPHEN 325MG TAB 650 MG PO (08:32)
[2024-03-11] MEDS: CITALOPRAM 20MG TABLET 20 MG PO (08:32)
[2024-03-11] MEDS: ARIPiprazole 10MG TABLET 5 MG PO (08:32)
[2024-03-11] MEDS: predniSONE 20MG TAB 40 MG PO (08:32)
[2024-03-11] MEDS: ENOXAPARIN 40MG/0.4ML SYRINGE 40 MG SQ (08:32)
--- NOTE | 2024-03-11 08:35 | HMH.OTEV ---
OT Inpatient Evaluation Rehab OT IP Evaluation Start: 03/10/24 15:55 Freq: ONCE Status: Active Protocol: Document 03/11/24 08:28 BRI (Rec: 03/11/24 08:35 [facility] [id number]) Rehab OT IP Assessment Subjective History Pt oriented x 2 on arrival. Pt agreeable to engage in therapy evaluation. Pt admitted on 03/10/24 due to COPD and CHF. Per H&P: Sarah South is a 74-year-old female with a medical history significant for medication induced hepatic cirrhosis, hypertension, hyperlipidemia, CKD, dementia presents to the ED with worsening shortness of breath over the past few days. Patient states symptoms began about 3 days ago and have gotten worse, denies fevers, cough, dizziness. She does endorse central chest pain radiating to the left shoulder . Denies cardiac history including [place], stents. Also denies history of COPD ( currently not on home inhalers ) but continues to smoke half a pack of cigarettes a day for many years. She also states that she needs to sleep on multiple pillows otherwise she will have shortness of breath , ongoing for many months. Denies history of heart failure. Patient also endorses decreased urinary frequency with dysuria ongoing for the past few days. She also reports a fall at home about a week ago with some mild bruising in lower extremities. She lives at home by herself. Subjective I am just weak. Pt is a questionable historian d/t inconsistent answers at times. Pt reports she lives in a single story home with 0 TRACY. Pt used a cane for IND ambulation and denies any falls in past month. Pt reports she still drives. Pt claims prior to being in the hospital she was independent with all ADLs and IADLs. However, information may be untrustworthy due to confusion at times. Self-limiting behaviors displayed likely secondary to confusion at this time. Objective Patient Orientation Person,Birthday Right Upper Extremity Gross ROM Min Limitation <25% Left Upper Extremity Gross ROM Min Limitation <25% Shoulder ROM Limitations Muscle Weakness Elbow ROM Limitations Muscle Weakness Wrist Limitations of Range of Motion Muscle Weakness Bed Mobility bed mobility-scooting,bed mobility - supine/sit Assist Level Minimal x 2 (25% assist) Transfer Training Sit/Stand Transfer Assist Level Minimal x 2 (25% assist) Upper Body Dressing Ability Moderate Assistance Performing Toilet Hygiene Ability Maximum Assistance Rehab OT IP prob,goals,plan Problems Date of Evaluation: 03/11/24 OT IP Problems Bed Mobility,Transfers,Balance ,Self care,Safety Rehab Potential Rehab Potential Good Equipment Needs Assistive Devices Rolling / Wheeled Walker Plan OT intervention Plan Bed Mobility,Transfers,Balance ,Self care,Safety,Therapeutic Exercise OT Plan Frequency Daily Duration LOS Discharge Goals Bed Mobility Ability Assistance x1 Sit to Stand Chair Transfer Ability Contact Guard/Hand Hold, Minimal x 1 (25% assist) Chair Transfer Ability Contact Guard/Hand Hold, Minimal x 1 (25% assist) Chair Transfer Technique Sit to/from Ambulatory Chair Transfer Assistive Devices Rolling Walker Feeding Ability Assist with Tray Set Up Lower Body Dressing Ability Minimal Assistance Upper Body Dressing Ability Contact Guard Bathing Ability Moderate Assistance Performing Toilet Hygiene Ability Moderate Assistance Overall Commode/Toilet Transfer Ability Contact Guard,Minimal Assistance Commode/Toilet Transfer Technique Sit to/from Ambulatory Commode/Toilet Transfer Assistive Grab Bars Devices Decrease in Endurance Yes Discharge Plan OT Discharge Plan Pt will continue to be seen for OT services while at [facility]. Pt would benefit most from short term rehab at [facility] following hospital stay. Pt is not safe to return home at this time due to a decline in functioning. Continued skilled therapy is important in order for patient to improve strength, safety, endurance, ADL independence, and functional transfers to reach PLOF. Therapist also recommends a walker during functional transfers to increase safety. Eval Complexity Eval Charge Codes 99400 - Moderate Complexity PHYSICIAN CERTIFICATION: I certify the specified therapy services for Sarah Randall are required, authorized, and reviewed every 30 days.
[2024-03-11 08:41] LABS: HCV Ab Non Reactive (Non Reactive)
[2024-03-11 08:54] LABS: Vitamin B12 428 pg/mL (239-931)
[2024-03-11] MEDS: levETIRAcetam 500 MG TABLET 750 MG PO ×2 (09:53→21:58)
[2024-03-11] MEDS: MAGNESIUM SULFATE IN WATER 2 GM/50 ML PIGGYBACK IV (10:10)
--- NOTE | 2024-03-11 11:42 | CARE MANAGER ---
Addendum entered by Jennifer Benitez 03/12/24 13:48: Sultana w/ [facility] spoke w/ patient's daughter and will arrange meeting between daughter and Hospice today around 5PM. Sultana stated that if patient is a candidate for Hospice services she already has all necessary DME at home to discharge. I will update nursing staff and MD. Addendum entered by Roseline Mitchell RN 03/12/24 12:34: Spoke with patient's daughter. She states she does not think home health will help patient and she will likely not progress with therapy. She is interested in Hospice services. Hospice consult placed. Original Note: Spoke with patient's daughter Lu. She states patient recently discharged from [facility] for rehab. She reports they plan for patient to go home and someone is with her 13/01. She mentioned that the PCP mentioned palliative care at the past visit. We discussed how Hospice had a palliative care program but does not have it now. Discussed home health vs. hospice and will talk to MD about this. GARETH Brownlee
[2024-03-11 12:29] LABS: Creatine Kinase 66 U/L (30-135)
[2024-03-11 13:01] LABS: Thyroid Stimulating Hormone 2.12 uIU/mL (0.465-4.68)
--- NOTE | 2024-03-11 15:38 | P.PN_ITS ---
Subjective *Date: 03/11/24 *Time: 16:12 Interval history: Patient is lying in bed comfortably this morning without acute concerns or distress. Continues to be very pleasant. Continues to have bilateral lower extremity pitting edema. Exam Data for Last 24 hours Vital signs and Labs for Last 24 Hours: Temp Pulse Resp BP Pulse Ox O2 Del Method O2 Flow Rate 98.9 F 106 H 19 133/73 93 L Nasal Cannula 1 03/11/24 12:00 03/11/24 12:00 03/11/24 12:00 03/11/24 12:00 03/11/24 12:00 03/11/24 13:00 03/11/24 13:00 Laboratory Results - last 24 hr 03/10/24 08:52: Hepatitis C Antibody Non reactive 03/10/24 11:54: Stl Aeromonas (PCR) Not detected, Stl C. cayetanensis PCR Not detected, Stool Rotavirus (PCR) Not detected, Stl Adenov F 40/41 PCR Not detected, Stool Astrovirus (PCR) Not detected, Stool Campylobacter PCR Not detected, Stl C.difficile Tox PCR Not detected, Stool Cryptosporidium PCR Not detected, Stl E.coli Shiga Tox PCR Not detected, Stool E coli O157 PCR Not detected, Stl Enterotoxigenic E PCR Not detected, Stool EPEC (PCR) Not detected, Stool EAEC (PCR) Not detected, Stl E. histolytica PCR Not detected, Stool Giardia Lamblia PCR Not detected, Stool Salmonella PCR Not detected, Stool Sapovirus (PCR) Not detected, Stl P. shigelloides PCR Not detected, Stl Shigella/EIEC PCR Not detected, St Y.enterocolitica PCR Not detected, Stool Vibrio (PCR) Not detected, Stl Vibrio cholerae PCR Not detected, Stl Norovirus GI/GII PCR Not detected 03/10/24 15:16: Troponin I 0.03 03/10/24 16:55: Lactate 3.8 H 03/11/24 06:55: WBC 11.9 H D, RBC 3.23 L, Hgb 9.4 L, Hct 31.2 L, MCV 96.5, MCH 29.2, MCHC 30.3 L, RDW 16.4, Plt Count 140 L, MPV 8.6, Neut % (Auto) 81.9 H, Lymph % (Auto) 8.5 L, [place] % (Auto) 9.0, Eos % (Auto) 0.5, Baso % (Auto) 0.2, Neut # (Auto) 9.7 H, Lymph # (Auto) 1.0, [place] # (Auto) 1.1 H, Eos # (Auto) 0.1, Baso # (Auto) 0.0, Sodium 138, Potassium 4.0 D, Chloride 108 H, Carbon Dioxide 31 H, Anion Gap 3.0 L, BUN 23 H, Creatinine 1.70 H D, Estimated Creat Clear 29, Estimated GFR 29 L, Est GFR ( Amer) 36 L D, Glucose 98, Lactate 1.5, Calcium 7.9 L, Magnesium 1.6, Total Bilirubin 0.5, AST 41 H, ALT 30, Alkaline Phosphatase 168 H, Total Creatine Kinase 66, Total Protein 5.1 L, Albumin 2.2 L, Globulin 2.9, Albumin/Globulin Ratio 0.8 L, Vitamin B12 428, TSH 2.12 I & O for Last 24 hours: Intake & Output 03/08/24 03/09/24 03/10/24 03/11/24 23:59 23:59 23:59 23:59 Intake Total 400 / 844 564 / 564 Output Total 800 / 1400 1050 / 1050 Balance -400 / -556 -486 / -486 Weight 64.949 kg 63.321 kg Constitutional Constitutional: no acute distress *Routine HEENT Exam Head: Present normocephalic Eye: Present EOMI and PERRL ENT: Present mucous membranes moist *Routine Neck Exam Neck: Present supple; Absent lymphadenopathy *Routine Respiratory Exam Respiratory: Present CTA bilaterally *Routine Cardiovascular Exam Cardiovascular: Present RRR *Routine Abdominal Exam Abdominal: Present soft and normoactive bowel sounds; Absent tenderness *Routine Extremities Exam Extremities: Present edema; Absent cyanosis or clubbing Comments: Bilateral lower extremity 2+ pitting edema *Routine Skin Exam Skin: Present warm; Absent rash *Routine Neurological Exam Neurological: Present alert Assessment and Plan *Assessment and plan (1) Acute on chronic heart failure with preserved ejection fraction (HFpEF): Status: Acute Category: Medical Code(s): I50.33 - Acute on chronic diastolic (congestive) heart failure Plan Sarah South is a 74-year-old female with a medical history significant for medication induced hepatic cirrhosis, hypertension, hyperlipidemia, CKD, d yue presents to the ED with worsening shortness of breath over the past few days. Case discussed with ED attending, and given that patient lives at home with advanced dementia and presenting with likely COPD/CHF exacerbation with hypokalemia decision was made to admit patient to the hospital medicine team. #HFpEF exacerbation ? Presented with 1 week history of worsening shortness of breath, and history of orthopnea and lower extremity edema. ? BNP 5180 with 2+ lower extremity pitting edema. No pulmonary edema per CXR and exam, on room air. ? ECHO 01/02/2024 revealed normal biventricular systolic function, LVEF 60%. ? Takes Lasix 20 mg every other day at home. ? Repeat ECHO 03/10/2024 LVEF 60%. Increased LV wall thickness. Normal global LV systolic function. No regional wall motion abnormalities. ? Normal TSH. Plan: ? Patient only had negative -480 net urine output in the last 24 hours. Lower extremity edema continues to be 2+. ? As such, discontinued Lasix and started Bumex 1 mg twice daily given hypoalbuminemia. ? Continue to treat hypertension, currently stable. ? Monitor electrolytes, renal function. Replete electrolytes as needed with electrolyte replacement protocol. #MARYLU ? Creatinine 1.7, baseline around 1.3. ? Likely prerenal in setting of fluid overload. Currently on diuresis, with bump in creatinine overnight. However, patient had minimal urine output which may be secondary to lack of response from Lasix. Switch to Lasix as above. ?Continue to monitor daily renal function. #Acute hypoxic respiratory failure #Acute COPD exacerbation ? Decreased air movement with moderate wheezing on bilateral lung rosado. Initial VBG revealed respiratory acidosis with hypercarbia which resolved after breathing treatments. ? Longstanding history of smoking, currently smokes half pack cigarette a day. ? DuoNebs scheduled and as as needed. ? Prednisone/steroids day 25. - Continue home Breo Ellipta. ? Antibiotics not indicated at this time given no purulent sputum. However, patient was on ceftriaxone for UTI. ? Patient will need rescue and maintenance inhaler upon discharge. ? Currently on 1 L nasal cannula. Weaned to room air as tolerated, baseline. #Urinary retention #UTI ? Patient endorses dysuria with decreased urinary frequency over the past few days. ? Bladder scan in the ED revealed 600 mL with patient not able to void. Blackburn placed. ? UA has 3+ blood which could also be from traumatic Blackburn insertion, not otherwise suggestive of infection. However, given dysuria and decreased frequency with retention we will treat for UTI and follow-up urine cultures. ? Ceftriaxone day 2/5. ? Follow-up urine cultures, discontinue antibiotics if normal darshan. ? Follow-up voiding trial. Remove Blackburn if successful. #Dementia #Falls at home ? Patient lives at home by herself and claims that she is able to ambulate by herself. However, she states that she has had falls in the past weeks and possibly more. ? PT/OT consulted, recommended SNF. ? Case management consulted, assisting with dispo. 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 #History of medication induced cirrhosis ? Continue home rifaximin. Not decompensated at this time. LFTs stable. #Seizure disorder ? Continue home Keppra 750 mg twice daily. CODE STATUS: DNR Diet: Cardiac DVT prophylaxis: Lovenox 40 mg
[2024-03-11] MEDS: BUMETANIDE 1MG/4ML VIAL 1 MG IV (17:17)
[2024-03-11] MEDS: MONTELUKAST SODIUM 10MG TAB 10 MG PO (17:17)
[2024-03-11] MEDS: FLUTICASONE/SALMETEROL 250/50MCG DISKUS 1 PUFF IH (18:15)
--- NOTE | 2024-03-11 18:38 | PC.NURSE ---
pt is currently resting in bed. 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 one bm with cream applied to excoriated area on the bottom and vaginal area. pt is on 1L NC with sats >90%. pt is alert to self and situation. moser is in place and is clamped per MD orders for bladder training. pt educated on the need to inform staff of the need to urinate. family brought home meds and these are locked in the pt drawer. pt has no complaints at this time. call light within reach.
[2024-03-11] MEDS: PANTOPRAZOLE 40MG TABLET 40 MG PO (21:58)
[2024-03-12] VITALS (8 sets, daily range): BP systolic 119–140; BP diastolic 62–94; PULSE 68–115; RESP 16–18; TEMP 36.6–37.2; O2SAT 90–98; BMI 24.5
--- NOTE | 2024-03-12 00:25 | PC.NURSE ---
Around midnight, I entered the patient's room to check on her. I also asked her if she had any urge to void at this time. Patient denied any urges with her Blackburn being clamped (per MD request for bladder training). Patient did not have any urges to void previously as well. 50mL of urine was observed in the bag. I unclamped her Blackburn to observe for any draining of urine. Patient also denied discomfort or increasing distention in her belly. 100mL of urine drained from unclamping the Blackburn. I clamped the Blackburn back into place and emptied a total of 150mL of urine thus far for this shift.
--- NOTE | 2024-03-12 01:39 | PC.NURSE ---
Entered patient's room at around 01:00 to check on her again. Patient voiced the urge to void; Blackburn was unclamped and encouragement was given for patient to void. Urine was observed to start draining. Patient was given time to finish voiding. At this time, patient no longer had an urge to void. A total of 20mL of urine was emptied from her bag. Patient's Blackburn was clamped back into place.
[2024-03-12] MEDS: HYDROCODONE/APAP 5/325 MG TABLET 2 TAB PO (01:55)
--- NOTE | 2024-03-12 05:20 | PC.NURSE ---
Patient is alert and oriented with occasional mild confusion. Patient has been very pleasant. Patient has remained on 1 L of oxygen via nasal cannula this shift; she requested me to keep the nasal cannula on throughout the night. Patient's oxygen saturations have remained above 90% this shift. Patient has not complained of feeling short of breath. She has been getting scheduled duonebs per AUG. Fine crackles were heard in the patient's lungs, along with diminished air movement, during auscultation. Patient's bowel sounds were active; her abdomen was slightly firm, round, and distended. She stated that she has occasional discomfort in her abdomen, but has not reported any this shift. Patient did however report having right leg and back pain once this shift; she was given [place] accordingly per AUG. After receiving pain medication, she was noticed to have eyes closed, respirations even and unlabored, and no apparent distress since 03:00. She also received her scheduled medications previously per AUG. More tremoring was noticed by the patient while awake, especially during eating and drinking. Patient was given a couple Pepsi sodas to drink (declines ice water), two bags of BBQ chips, and one vanilla pudding this shift. Patient's perineum was observed to still have mild redness present. Patient's Blackburn has been clamped for the majority of the shift (see prior note); it has been unclamped periodically to avoid any apparent bladder distention and to assess patient's urge to void. Thus far, patient reported having the urge to void once (see prior note). A total of 170mL of urine was emptied from the Blackburn bag by me this shift. Patient's heart rate was noticed to be slightly tachycardic after midnight and on; other vital signs have remained within patient's baseline this shift. Patient is currently resting on her right side in bed. She has not had any further complaints. No acute changes noted. Bed alarm on. Call light within reach.
[2024-03-12] MEDS: IPRATROPIUM/ALBUTEROL 3 ML NEB IH ×3 (06:24→18:17)
[2024-03-12] MEDS: FLUTICASONE/SALMETEROL 250/50MCG DISKUS 1 PUFF IH ×2 (06:25→18:18)
[2024-03-12 07:05] LABS: Basophils % 0.2 % (0.1-2.0); Eosinophils # 0.1 K/mm3 (0.0-0.4); Hematocrit 31.5 % (37.0-47.0); Hemoglobin 9.3 g/dL (12.2-16.2); Lymphocytes # 1.2 K/mm3 (0.7-4.5); Lymphocytes % 9.5 % (10-50); Mean Corpuscular HGB Conc 29.5 g/dL (31.8-35.4); Mean Corpuscular Hemoglobin 29.1 pg (27.0-31.2); Mean Corpuscular Volume 98.9 fl (81-99); Mean Platelet Volume 7.1 fl (7.4-10.4); Monocytes % 8.6 % (1.7-9.3); Neutrophils # 9.7 K/mm3 (1.8-7.8); Neutrophils % 80.6 % (37.0-80.0); Platelet Count 116 K/mm3 (142-424); Red Blood Count 3.18 M/mm3 (4.20-5.40); Red Cell Distribution Width 16.3 % (11.5-17.5)
[2024-03-12 07:09] LABS: Anion Gap 2.6 mEq/L (5-15); Blood Urea Nitrogen 26 mg/dl (7-17); Calcium 7.8 mg/dl (8.4-10.2); Carbon Dioxide 31 mmol/L (22.0-30.0); Chloride 106 mmol/L (98-107); Creatinine Clearance Estimated 27 mL/min (50-200); Estimated Glomerular Filt Rate 28 ml/min (>60); GFR (African American) 33 ML/MIN (>60); Glucose 82 mg/dl (74-100); Potassium 4.6 mmoL/L (3.5-5.1); Sodium 135 mmol/L (136-145)
[2024-03-12] MEDS: FERROUS SULFATE 325MG TABLET 325 MG PO (09:43)
[2024-03-12] MEDS: ARIPiprazole 10MG TABLET 5 MG PO (09:43)
[2024-03-12] MEDS: CITALOPRAM 20MG TABLET 20 MG PO (09:43)
[2024-03-12] MEDS: MEMANTINE 10MG TABLET 5 MG PO (09:44)
[2024-03-12] MEDS: levETIRAcetam 500 MG TABLET 750 MG PO ×2 (09:44→20:10)
[2024-03-12] MEDS: CEFTRIAXONE 1 GM 1 GM in 0.9 % SODIUM CHLORIDE 50 ML IV (09:45)
[2024-03-12] MEDS: POTASSIUM CHLORIDE 20MEQ TAB 40 MEQ PO (09:45)
[2024-03-12] MEDS: predniSONE 20MG TAB 40 MG PO (09:45)
[2024-03-12] MEDS: ENOXAPARIN 30MG/0.3ML SYRINGE 30 MG SQ (09:45)
[2024-03-12] MEDS: RIFAXIMIN 550MG TABLET 550 MG PO ×2 (09:45→20:10)
[2024-03-12 09:54] LABS: Folate 1.57 ng/mL
--- NOTE | 2024-03-12 10:58 | US_ITS ---
FINAL REPORT CLINICAL HISTORY: eval for obstruction, architecture COMPARISON: None FINDINGS: RENAL ULTRASOUND Ultrasound images of the kidneys were obtained. The liver is small and coarsened with a nodular peripheral margin. There is a moderate amount of ascites. The right kidney measures 9.1 cm in length. The left kidney measures 5.9 cm in length. The kidneys are not well imaged. There is no evidence of hydronephrosis. IMPRESSION: Kidneys not well imaged but no evidence of hydronephrosis. Cirrhosis and moderate ascites. Reviewed, Interpreted and Dictated by Kane Mejia MD Transcribed by Sherice Mann Authenticated and . [facility]
--- NOTE | 2024-03-12 15:08 | PC.NURSE ---
Aox 1 with confusion noted, turn every two hours, 02-1L nc sats in the low 90's, f/c in place, on lovenox for vte, pt is seeing patient, cm put in refferal for hospice, [facility] active.
[2024-03-12 15:21] LABS: Hemoglobin A1C 4.2 % (4.0-6.0)
--- NOTE | 2024-03-12 17:01 | EXP.PN ---
Subjective *Date: 03/12/24 *Time: 17:01 Interval history: Patient continues to be very pleasant and lying in bed comfortably this today without acute distress or concerns. She states she feels better today. Denies chest pain, shortness of breath, abdominal pain. Lower extremity edema has also improved. Exam Data for Last 24 hours Vital signs and Labs for Last 24 Hours: Temp Pulse Resp BP Pulse Ox O2 Del Method O2 Flow Rate 97.9 F 95 H 17 119/62 96 Nasal Cannula 1 03/12/24 16:00 03/12/24 16:00 03/12/24 16:00 03/12/24 16:00 03/12/24 16:00 03/12/24 16:00 03/12/24 16:00 Laboratory Results - last 24 hr 03/11/24 06:55: Hemoglobin A1c 4.2 03/12/24 06:32: WBC 12.0 H, RBC 3.18 L, Hgb 9.3 L, Hct 31.5 L, MCV 98.9, MCH 29.1, MCHC 29.5 L, RDW 16.3, Plt Count 116 L, MPV 7.1 L, Neut % (Auto) 80.6 H, Lymph % (Auto) 9.5 L, [place] % (Auto) 8.6, Eos % (Auto) 1.0, Baso % (Auto) 0.2, Neut # (Auto) 9.7 H, Lymph # (Auto) 1.2, [place] # (Auto) 1.0, Eos # (Auto) 0.1, Baso # (Auto) 0.0, Sodium 135 L, Potassium 4.6, Chloride 106, Carbon Dioxide 31 H, Anion Gap 2.6 L, BUN 26 H, Creatinine 1.80 H, Estimated Creat Clear 27, Estimated GFR 28 L, Est GFR ( Amer) 33 L, Glucose 82, Calcium 7.8 L, Magnesium 2.0 D, Folate 1.57 I & O for Last 24 hours: Intake & Output 03/09/24 03/10/24 03/11/24 03/12/24 23:59 23:59 23:59 23:59 Intake Total 400 / 844 564 / 1224 660 / 660 Output Total 800 / 1400 1450 / 1600 370 / 370 Balance -400 / -556 -886 / -376 290 / 290 Weight 64.949 kg 63.321 kg 62.8 kg Microbiology Reports for the Last 24 Hours: Microbiology 03/10/24 16:53 Blood Blood Culture - Preliminary NO GROWTH AFTER 48 HOURS 03/10/24 16:55 Blood Blood Culture - Preliminary NO GROWTH AFTER 48 HOURS 03/10/24 16:14 Urine,[place] Urine Culture - Final No growth. Constitutional Constitutional: no acute distress *Routine HEENT Exam Head: Present normocephalic Eye: Present EOMI and PERRL ENT: Present mucous membranes moist *Routine Neck Exam Neck: Present supple; Absent lymphadenopathy *Routine Respiratory Exam Respiratory: Present CTA bilaterally *Routine Cardiovascular Exam Cardiovascular: Present RRR *Routine Abdominal Exam Abdominal: Present soft and normoactive bowel sounds; Absent tenderness *Routine Extremities Exam Extremities: Present edema; Absent cyanosis or clubbing Comments: Bilateral lower extremity 1+ pitting edema *Routine Skin Exam Skin: Present warm; Absent rash *Routine Neurological Exam Neurological: Present alert Assessment and Plan *Assessment and plan (1) Acute on chronic heart failure with preserved ejection fraction (HFpEF): Status: Acute Category: Medical Code(s): I50.33 - Acute on chronic diastolic (congestive) heart failure Plan Sarah South is a 74-year-old female with a medical history significant for medication induced hepatic cirrhosis, hypertension, hyperlipidemia, CKD, dementia presents to the ED with worsening shortness of breath over the past few days. Case discussed with ED attending, and given that patient lives at home with advanced dementia and presenting with likely COPD/CHF exacerbation with hypokalemia decision was made to admit patient to the hospital medicine team. #HFpEF exacerbation ? Presented with 1 week history of worsening shortness of breath, and history of orthopnea and lower extremity edema. ? BNP 5180 with 2+ lower extremity pitting edema. No pulmonary edema per CXR and exam, on room air. ? ECHO 01/02/2024 revealed normal biventricular systolic function, LVEF 60%. ? Takes Lasix 20 mg every other day at home. ? Repeat ECHO 03/10/2024 LVEF 60%. Increased LV wall thickness. Normal global LV systolic function. No regional wall motion abnormalities. ? Normal TSH. Plan: ? Patient's urine output has improved today, with lower extremity edema improving. Patient states she also feels better today. ? Started Bumex 1 mg daily, discontinued IV Bumex 2 mg twice daily given uptrend in creatinine and improvement in lower extremity edema. ? Continue to treat hypertension, currently stable. ? Monitor electrolytes, renal function. Replete electrolytes as needed with electrolyte replacement protocol. #MARYLU ? Creatinine 1.8, baseline around 1.3. ? Likely prerenal in setting of fluid overload and aggressive diuresis. Will switch Bumex from twice daily to daily given uptrending creatinine today as well. ? Continue to monitor daily renal function. ? Follow-up CK. #Acute hypoxic respiratory failure #Acute COPD exacerbation ? Decreased air movement with moderate wheezing on bilateral lung rosado. Initial VBG revealed respiratory acidosis with hypercarbia which resolved after breathing treatments. ? Longstanding history of smoking, currently smokes half pack cigarette a day. ? DuoNebs scheduled and as as needed. ? Prednisone/steroids day 08/25. - Continue home Breo Ellipta. ? Antibiotics not indicated at this time given no purulent sputum. ? Patient will need rescue and maintenance inhaler upon discharge. ? Currently on 1 L nasal cannula. Weaned to room air as tolerated, baseline. #Urinary retention ? Patient endorses dysuria with decreased urinary frequency over the past few days. ? Bladder scan in the ED revealed 600 mL with patient not able to void. Blackburn placed. ? UA has 3+ blood which could also be from traumatic Blackburn insertion, not otherwise suggestive of infection. ? Treated with ceftriaxone for 3 days given symptoms of dysuria, discontinued after urine cultures revealed no growth. ? Given minimal urine output overnight, renal ultrasound was obtained which does not show hydronephrosis. But does note cirrhosis and moderate ascites. ? Patient had a successful voiding trial, Blackburn will be removed. #Dementia #Falls at home ? Patient lives at home by herself and claims that she is able to ambulate by herself. However, she states that she has had falls in the past weeks and possibly more. ? PT/OT consulted, recommended SNF. ? Family is interested in hospice care given multiple complex comorbidities and continued clinical decline. Case management consulted, assisting with dispo. #History of medication induced cirrhosis ? Continue home rifaximin. Not decompensated at this time. LFTs stable. Renal ultrasound does show moderate ascites but patient is not having gross abdominal distention, pain, fevers, leukocytosis. Plan to find fluid pocket tomorrow for possible paracentesis. #Seizure disorder ? Continue home Keppra 750 mg twice daily. CODE STATUS: DNR Diet: Cardiac DVT prophylaxis: Lovenox 40 mg
[2024-03-12] MEDS: PANTOPRAZOLE 40MG TABLET 40 MG PO (20:10)
[2024-03-13] VITALS (8 sets, daily range): BP systolic 107–137; BP diastolic 59–78; PULSE 81–101; RESP 16; TEMP 36.7–37.4; O2SAT 92–97; BMI 25.9
[2024-03-13] MEDS: IPRATROPIUM/ALBUTEROL 3 ML NEB IH ×5 (00:16→23:52)
--- NOTE | 2024-03-13 03:41 | PC.NURSE ---
Pt is alert to self and pleasant with staff. Pt has attempted to get out of bed multiple times this shift without needed assistance however is easily reoriented, and has slept very little. Pt has had no acute changes to note this shift, pt verbally denies and needs at this time
[2024-03-13] MEDS: FLUTICASONE/SALMETEROL 250/50MCG DISKUS 1 PUFF IH ×2 (06:05→18:21)
[2024-03-13 07:28] LABS: Basophils % 0.1 % (0.1-2.0); Eosinophils # 0.1 K/mm3 (0.0-0.4); Eosinophils % 1.1 % (0.1-12.0); Hematocrit 29.4 % (37.0-47.0); Hemoglobin 8.7 g/dL (12.2-16.2); Lymphocytes # 1.1 K/mm3 (0.7-4.5); Lymphocytes % 9.1 % (10-50); Mean Corpuscular HGB Conc 29.5 g/dL (31.8-35.4); Mean Corpuscular Volume 98.3 fl (81-99); Mean Platelet Volume 7.3 fl (7.4-10.4); Monocytes # 0.8 K/mm3 (0.1-1.0); Monocytes % 6.6 % (1.7-9.3); Neutrophils # 10.4 K/mm3 (1.8-7.8); Neutrophils % 83.1 % (37.0-80.0); Platelet Count 98 K/mm3 (142-424); Red Blood Count 2.99 M/mm3 (4.20-5.40); Red Cell Distribution Width 16.1 % (11.5-17.5); White Blood Count 12.5 K/mm3 (4.8-10.8)
[2024-03-13 07:35] LABS: Chloride 104 mmol/L (98-107); Potassium 4.6 mmoL/L (3.5-5.1); Sodium 133 mmol/L (136-145)
[2024-03-13 07:38] LABS: Anion Gap 2.6 mEq/L (5-15); Blood Urea Nitrogen 28 mg/dl (7-17); Calcium 8.2 mg/dl (8.4-10.2); Carbon Dioxide 31 mmol/L (22.0-30.0); Creatine Kinase 84 U/L (30-135); Creatinine Clearance Estimated 29 mL/min (50-200); Estimated Glomerular Filt Rate 28 ml/min (>60); GFR (African American) 33 ML/MIN (>60); Glucose 62 mg/dl (74-100)
[2024-03-13] MEDS: FERROUS SULFATE 325MG TABLET 325 MG PO (08:14)
[2024-03-13] MEDS: CITALOPRAM 20MG TABLET 20 MG PO (08:14)
[2024-03-13] MEDS: RIFAXIMIN 550MG TABLET 550 MG PO ×2 (08:14→20:21)
[2024-03-13] MEDS: MEMANTINE 10MG TABLET 5 MG PO (08:15)
[2024-03-13] MEDS: predniSONE 20MG TAB 40 MG PO (08:15)
[2024-03-13] MEDS: levETIRAcetam 500 MG TABLET 750 MG PO ×2 (08:16→20:21)
[2024-03-13] MEDS: ARIPiprazole 10MG TABLET 5 MG PO (08:17)
[2024-03-13] MEDS: POTASSIUM CHLORIDE 20MEQ TAB 40 MEQ PO (08:18)
[2024-03-13] MEDS: CEFTRIAXONE 1 GM 1 GM in 0.9 % SODIUM CHLORIDE 50 ML IV (08:19)
[2024-03-13] MEDS: ENOXAPARIN 30MG/0.3ML SYRINGE 30 MG SQ (08:19)
[2024-03-13] MEDS: BUMETANIDE 1 MG TABLET PO (08:24)
[2024-03-13] MEDS: FOLIC ACID 1MG TABLET 1 MG PO (08:24)
--- NOTE | 2024-03-13 13:50 | P.PN_ITS ---
Subjective *Date: 03/13/24 *Time: 21:56 Interval history: Patient continues to be very pleasant today without acute concerns or distress. Continues to have lower extremity edema, same as yesterday. Reports chest pain during coughing, but shortness of breath. Exam Data for Last 24 hours Vital signs and Labs for Last 24 Hours: Temp Pulse Resp BP Pulse Ox O2 Del Method O2 Flow Rate 99.4 F 88 16 107/63 L 96 Nasal Cannula 1 03/13/24 08:00 03/13/24 11:13 03/13/24 08:00 03/13/24 08:00 03/13/24 11:13 03/13/24 11:13 03/13/24 11:13 Laboratory Results - last 24 hr 03/11/24 06:55: Hemoglobin A1c 4.2 03/13/24 07:02: WBC 12.5 H, RBC 2.99 L, Hgb 8.7 L, Hct 29.4 L, MCV 98.3, MCH 29.0, MCHC 29.5 L, RDW 16.1, Plt Count 98 L, MPV 7.3 L, Neut % (Auto) 83.1 H, Lymph % (Auto) 9.1 L, [place] % (Auto) 6.6, Eos % (Auto) 1.1, Baso % (Auto) 0.1, Neut # (Auto) 10.4 H, Lymph # (Auto) 1.1, Cascade # (Auto) 0.8, Eos # (Auto) 0.1, Baso # (Auto) 0.0, Sodium 133 L, Potassium 4.6, Chloride 104, Carbon Dioxide 31 H, Anion Gap 2.6 L, BUN 28 H, Creatinine 1.80 H, Estimated Creat Clear 29, Estimated GFR 28 L, Est GFR ( Amer) 33 L, Glucose 62 L, Calcium 8.2 L, Total Creatine Kinase 84 I & O for Last 24 hours: Intake & Output 03/10/24 03/11/24 03/12/24 03/13/24 23:59 23:59 23:59 23:59 Intake Total 400 / 844 564 / 1224 1160 / 1400 440 / 440 Output Total 800 / 1400 1450 / 1600 370 / 370 0 / 0 Balance -400 / -556 -886 / -376 790 / 1030 440 / 440 Weight 64.949 kg 63.321 kg 62.8 kg 66.587 kg Microbiology Reports for the Last 24 Hours: Microbiology 03/10/24 16:53 Blood Blood Culture - Preliminary NO GROWTH AFTER 48 HOURS 03/10/24 16:55 Blood Blood Culture - Preliminary NO GROWTH AFTER 48 HOURS Constitutional Constitutional: no acute distress *Routine HEENT Exam Head: Present normocephalic Eye: Present EOMI and PERRL ENT: Present mucous membranes moist *Routine Neck Exam Neck: Present supple; Absent lymphadenopathy *Routine Respiratory Exam Respiratory: Present CTA bilaterally *Routine Cardiovascular Exam Cardiovascular: Present RRR *Routine Abdominal Exam Abdominal: Present soft and normoactive bowel sounds; Absent tenderness *Routine Extremities Exam Extremities: Present edema; Absent cyanosis or clubbing Comments: Bilateral lower extremity 3+ pitting edema up to knees, same as yesterday *Routine Skin Exam Skin: Present warm; Absent rash *Routine Neurological Exam Neurological: Present alert Assessment and Plan *Assessment and plan (1) Acute on chronic heart failure with preserved ejection fraction (HFpEF): Status: Acute Category: Medical Code(s): I50.33 - Acute on chronic diastolic (congestive) heart failure Plan Sarah South is a 74-year-old female with a medical history significant for medication induced hepatic cirrhosis, hypertension, hyperlipidemia, CKD, dementia presents to the ED with worsening shortness of breath over the past few days. Case discussed with ED attending, and given that patient lives at home with advanced dementia and presenting with likely COPD/CHF exacerbation with hypokalemia decision was made to admit patient to the hospital medicine team. #HFpEF exacerbation ? Presented with 1 week history of worsening shortness of breath, and history of orthopnea and lower extremity edema. ? BNP 5180 with 2+ lower extremity pitting edema. No pulmonary edema per CXR and exam, on room air. ? ECHO 01/02/2024 revealed normal biventricular systolic function, LVEF 60%. ? Takes Lasix 20 mg every other day at home. ? Repeat ECHO 03/10/2024 LVEF 60%. Increased LV wall thickness. Normal global LV systolic function. No regional wall motion abnormalities. ? Normal TSH. Plan: ? Continues to dieurese appropriately. Not euvolemic yet. ? Bumex 1 mg daily. ? Continue to treat hypertension, currently stable. ? Monitor electrolytes, renal function. Replete electrolytes as needed with electrolyte replacement protocol. #MARYLU ? Creatinine 1.8, baseline around 1.3. ? Likely prerenal in setting of cardiorenal fluid overload and third spacing. - Cr plateaued today, anticipate downtrend with continued dieuresis. ? Continue to monitor daily renal function. ? Normal CK. #Acute hypoxic respiratory failure #Acute COPD exacerbation ? Intial Decreased air movement with moderate wheezing on bilateral lung rosado. Initial VBG revealed respiratory acidosis with hypercarbia which resolved after breathing treatments. ? Longstanding history of smoking, currently smokes half pack cigarette a day. ? DuoNebs scheduled and as as needed. ? Prednisone/steroids day 4/5. - Continue home Breo Ellipta. ? Antibiotics not indicated at this time given no purulent sputum. ? Patient will need rescue and maintenance inhaler upon discharge. ? Currently on 1 L nasal cannula. Wean to room air as tolerated, baseline. #Urinary retention, resolved ? Patient endorses dysuria with decreased urinary frequency over the past few days. ? Bladder scan in the ED revealed 600 mL with patient not able to void. Moser placed. ? UA has 3+ blood which could also be from traumatic Moser insertion, not otherwise suggestive of infection. ? Treated with ceftriaxone for 3 days given symptoms of dysuria, discontinued after urine cultures revealed no growth. ? Renal ultrasound was obtained which does not show hydronephrosis. But does note cirrhosis and moderate ascites. ? Patient continued to make good urine wihtout moser. #Dementia #Falls at home ? Patient lives at home by herself and claims that she is able to ambulate by herself. However, she states that she has had falls in the past weeks and possibly more. ? PT/OT consulted, recommended SNF. ? Family is interested in hospice care given multiple complex comorbidities and continued clinical decline. Case management consulted, assisting with dispo. #History of medication induced cirrhosis ? Continue home rifaximin. Not decompensated at this time. LFTs stable. Renal ultrasound does show moderate ascites but patient is not having gross abdominal distention, pain, fevers, leukocytosis. Plan to find fluid pocket tomorrow for possible paracentesis. #Seizure disorder ? Continue home Keppra 750 mg twice daily. CODE STATUS: DNR Diet: Cardiac DVT prophylaxis: Lovenox 40 mg
--- NOTE | 2024-03-13 17:36 | PC.NURSE ---
PT IS ALERT BUT PLEASANTLY CONFUSED. TOLERATING ROOM AIR. HAS DENIED PAIN THIS SHIFT. NO ACUTE CHANGES SINCE PREVIOUS ASSESSMENT.
[2024-03-13] MEDS: MONTELUKAST SODIUM 10MG TAB 10 MG PO (17:48)
[2024-03-13] MEDS: PANTOPRAZOLE 40MG TABLET 40 MG PO (20:21)
[2024-03-13] MEDS: guaiFENesin 600 MG TAB.ER.12H PO (20:21)
[2024-03-14 00:06] VITALS: PULSE 80; PULSE 81
[2024-03-14 04:00] VITALS: BP 123/69; PULSE 98; RESP 18; TEMP 37.4; O2SAT 93; BMI 26.0
--- NOTE | 2024-03-14 05:15 | PC.NURSE ---
Pt is alert to self and pleasantly confused. Pt has not slept much this shift. Pt has had no other acute changes this shift, denies pain and needs
[2024-03-14] MEDS: IPRATROPIUM/ALBUTEROL 3 ML NEB IH ×2 (06:12→11:06)
[2024-03-14] MEDS: FLUTICASONE/SALMETEROL 250/50MCG DISKUS 1 PUFF IH (06:12)
[2024-03-14 06:13] VITALS: PULSE 93; PULSE 96; O2SAT 91
[2024-03-14 06:29] LABS: Chloride 104 mmol/L (98-107); Sodium 133 mmol/L (136-145)
[2024-03-14 06:32] LABS: Blood Urea Nitrogen 30 mg/dl (7-17); Calcium 8.4 mg/dl (8.4-10.2); Carbon Dioxide 30 mmol/L (22.0-30.0); Creatinine Clearance Estimated 29 mL/min (50-200); Estimated Glomerular Filt Rate 28 ml/min (>60); GFR (African American) 33 ML/MIN (>60); Glucose 94 mg/dl (74-100)
[2024-03-14 07:52] VITALS: BP 133/79; PULSE 113; RESP 17; TEMP 36.9; O2SAT 93
[2024-03-14] MEDS: ARIPiprazole 10MG TABLET 5 MG PO (08:03)
[2024-03-14] MEDS: BUMETANIDE 1 MG TABLET PO (08:04)
[2024-03-14] MEDS: levETIRAcetam 500 MG TABLET 750 MG PO (08:04)
[2024-03-14] MEDS: predniSONE 20MG TAB 40 MG PO (08:04)
[2024-03-14] MEDS: POTASSIUM CHLORIDE 20MEQ TAB 40 MEQ PO (08:05)
[2024-03-14] MEDS: MEMANTINE 10MG TABLET 5 MG PO (08:06)
[2024-03-14] MEDS: FOLIC ACID 1MG TABLET 1 MG PO (08:06)
[2024-03-14] MEDS: FERROUS SULFATE 325MG TABLET 325 MG PO (08:06)
[2024-03-14] MEDS: CITALOPRAM 20MG TABLET 20 MG PO (08:06)
[2024-03-14] MEDS: RIFAXIMIN 550MG TABLET 550 MG PO (08:07)
[2024-03-14 11:06] VITALS: PULSE 103; PULSE 98; O2SAT 92
--- NOTE | 2024-03-14 14:45 | EXP.PN ---
Subjective *Date: 03/14/24 *Time: 14:45 Interval history: Patient is a little somnolent this morning, but continues to be pleasant. Denies chest pain, shortness of breath. Lower extremity edema still present, improved from yesterday. Exam Data for Last 24 hours Vital signs and Labs for Last 24 Hours: Temp Pulse Resp BP Pulse Ox O2 Del Method O2 Flow Rate 98.4 F 103 H 17 133/79 92 L Room Air 1 03/14/24 07:52 03/14/24 11:06 03/14/24 07:52 03/14/24 07:52 03/14/24 11:06 03/14/24 13:00 03/13/24 11:13 Laboratory Results - last 24 hr 03/14/24 05:37: Sodium 133 L, Potassium 5.0, Chloride 104, Carbon Dioxide 30, Anion Gap 4.0 L, BUN 30 H, Creatinine 1.80 H, Estimated Creat Clear 29, Estimated GFR 28 L, Est GFR ( Amer) 33 L, Glucose 94 D, Calcium 8.4 I & O for Last 24 hours: Intake & Output 03/11/24 03/12/24 03/13/24 03/14/24 23:59 23:59 23:59 23:59 Intake Total 564 / 1224 1160 / 1400 1280 / 1640 840 / 840 Output Total 1450 / 1600 370 / 370 100 / 100 0 / 0 Balance -886 / -376 790 / 1030 1180 / 1540 840 / 840 Weight 63.321 kg 62.8 kg 66.587 kg 66.723 kg Assessment and Plan *Assessment and plan (1) Acute on chronic heart failure with preserved ejection fraction (HFpEF): Status: Acute Category: Medical Code(s): I50.33 - Acute on chronic diastolic (congestive) heart failure Plan Sarah South is a 74-year-old female with a medical history significant for medication induced hepatic cirrhosis, hypertension, hyperlipidemia, CKD, dementia presents to the ED with worsening shortness of breath over the past few days. Case discussed with ED attending, and given that patient lives at home with advanced dementia and presenting with likely COPD/CHF exacerbation with hypokalemia decision was made to admit patient to the hospital medicine team. #HFpEF exacerbation ? Presented with 1 week history of worsening shortness of breath, and history of orthopnea and lower extremity edema. ? BNP 5180 with 2+ lower extremity pitting edema. No pulmonary edema per CXR and exam, on room air. ? ECHO 01/02/2024 revealed normal biventricular systolic function, LVEF 60%. ? Takes Lasix 20 mg every other day at home. ? Repeat ECHO 03/10/2024 LVEF 60%. Increased LV wall thickness. Normal global LV systolic function. No regional wall motion abnormalities. ? Normal TSH. Plan: ? Continues to dieurese appropriately. Not euvolemic yet. ? Bumex 1 mg daily. ? Continue to treat hypertension, currently stable. ? Monitor electrolytes, renal function. Replete electrolytes as needed with electrolyte replacement protocol. #MARYLU ? Creatinine 1.8, baseline around 1.3. ? Likely prerenal in setting of cardiorenal fluid overload and third spacing. - Cr plateaued today, anticipate downtrend with continued dieuresis. ? Continue to monitor daily renal function. ? Normal CK. #Acute hypoxic respiratory failure #Acute COPD exacerbation ? Intial Decreased air movement with moderate wheezing on bilateral lung rosado. Initial VBG revealed respiratory acidosis with hypercarbia which resolved after breathing treatments. ? Longstanding history of smoking, currently smokes half pack cigarette a day. ? DuoNebs scheduled and as as needed. ? Prednisone/steroids day 4/5. - Continue home Breo Ellipta. ? Antibiotics not indicated at this time given no purulent sputum. ? Patient will need rescue and maintenance inhaler upon discharge. ? Currently on 1 L nasal cannula. Wean to room air as tolerated, baseline. #Urinary retention, resolved ? Patient endorses dysuria with decreased urinary frequency over the past few days. ? Bladder scan in the ED revealed 600 mL with patient not able to void. Moser placed. ? UA has 3+ blood which could also be from traumatic Moser insertion, not otherwise suggestive of infection. ? Treated with ceftriaxone for 3 days given symptoms of dysuria, discontinued after urine cultures revealed no growth. ? Renal ultrasound was obtained which does not show hydronephrosis. But does note cirrhosis and moderate ascites. ? Patient continued to make good urine wihtout moser. #Dementia #Falls at home ? Patient lives at home by herself and claims that she is able to ambulate by herself. However, she states that she has had falls in the past weeks and possibly more. ? PT/OT consulted, recommended SNF. ? Family is interested in hospice care given multiple complex comorbidities and continued clinical decline. Case management consulted, assisting with dispo. #History of medication induced cirrhosis ? Continue home rifaximin. Not decompensated at this time. LFTs stable. Renal ultrasound does show moderate ascites but patient is not having gross abdominal distention, pain, fevers, leukocytosis. Plan to find fluid pocket tomorrow for possible paracentesis. #Seizure disorder ? Continue home Keppra 750 mg twice daily. CODE STATUS: DNR Diet: Cardiac DVT prophylaxis: Lovenox 40 mg
[2024-03-14] MEDS: MONTELUKAST SODIUM 10MG TAB 10 MG PO (15:57)
--- NOTE | 2024-04-01 19:16 | EXP.DC.SUM ---
General Admission date:: 03/10/24 Discharge date: 03/14/24 HPI HPI HPI: Sarah South is a 74-year-old female with a medical history significant for medication induced hepatic cirrhosis, hypertension, hyperlipidemia, CKD, dementia presents to the ED with worsening shortness of breath over the past few days. Patient states symptoms began about 3 days ago and have gotten worse, denies fevers, cough, dizziness. She does endorse central chest pain radiating to the left shoulder. Denies cardiac history including MA, stents. Also denies history of COPD (currently not on home inhalers) but continues to smoke half a pack of cigarettes a day for many years. She also states that she needs to sleep on multiple pillows otherwise she will have shortness of breath, ongoing for many months. Denies history of heart failure. Patient also endorses decreased urinary frequency with dysuria ongoing for the past few days. She also reports a fall at home about a week ago with some mild bruising in lower extremities. She lives at home by herself. Workup in the ED significant for BNP 5180, potassium 2.9, elevated PCO2 but compensated pH, troponin 0.03. CXR does not reveal acute pulmonary process. She was given breathing treatments and Solu-Medrol for suspected COPD exacerbation with some improvement. On room air. Also given IV Lasix 60 mg for suspected heart failure exacerbation. Case discussed with ED attending, and given that patient lives at home with advanced dementia and presenting with likely COPD/CHF exacerbation with hypokalemia decision was made to admit patient for observation to the hospital medicine team. Hospital Course Hospital Course Hospital Course: Sarah South is a 74-year-old female with a medical history significant for medication induced hepatic cirrhosis, hypertension, hyperlipidemia, CKD, dementia presents to the ED with worsening shortness of breath over the past few days. Case discussed with ED attending, and given that patient lives at home with advanced dementia and presenting with likely COPD/CHF exacerbation with hypokalemia decision was made to admit patient to the hospital medicine team. #HFpEF exacerbation ? Presented with 1 week history of worsening shortness of breath, and history of orthopnea and lower extremity edema. ? BNP 5180 with 2+ lower extremity pitting edema. No pulmonary edema per CXR and exam, on room air. ? ECHO 01/02/2024 revealed normal biventricular systolic function, LVEF 60%. ? Takes Lasix 20 mg every other day at home. ? Repeat ECHO 03/10/2024 LVEF 60%. Increased LV wall thickness. Normal global LV systolic function. No regional wall motion abnormalities. - Improved with IV Bumex diuresis. Saturating appropriately on room air. - Medically stable for discharge. - Discharged with Bumex 1mg daily. Will follow-up with cardiology within 1 week. #MARYLU ? Creatinine 1.8, baseline around 1.3. ? Likely prerenal in setting of cardiorenal fluid overload and third spacing, in addition to IV Bumex diuresis. - Will follow-up with PCP within 1 week to recheck BMP. #Acute hypoxic respiratory failure #Acute COPD exacerbation ? Intial Decreased air movement with moderate wheezing on bilateral lung rosado. Initial VBG revealed respiratory acidosis with hypercarbia which resolved after breathing treatments. ? Longstanding history of smoking, currently smokes half pack cigarette a day. - Resolved with Duonebs, steroids for 5 days. - Continue home Breo Ellipta. #Urinary retention, resolved ? Retention resolved with moser placement and removal. Spontaneously voided prior to discharge. #Dementia #Falls at home ? Patient lives at home by herself and claims that she is able to ambulate by herself. However, she states that she has had falls in the past weeks and possibly more. ? PT/OT consulted, recommended SNF. However, family was interested in hospice care given multiple complex comorbidities and continued clinical decline. Discharged home with hospice care. #History of medication induced cirrhosis ? Continue home rifaximin. #Seizure disorder ? Continue home Keppra 750 mg twice daily. Exam Data for Last 24 hours Vital signs and Labs for Last 24 Hours: Temp Pulse Resp BP Pulse Ox O2 Del Method O2 Flow Rate 98.4 F 103 H 17 133/79 92 L Room Air 1 03/14/24 07:52 03/14/24 11:06 03/14/24 07:52 03/14/24 07:52 03/14/24 11:06 03/14/24 15:00 03/13/24 11:13 Constitutional Constitutional: no acute distress *Routine HEENT Exam Head: Present normocephalic Eye: Present EOMI and PERRL ENT: Present mucous membranes moist *Routine Neck Exam Neck: Present supple; Absent lymphadenopathy *Routine Respiratory Exam Respiratory: Present CTA bilaterally *Routine Cardiovascular Exam Cardiovascular: Present RRR *Routine Abdominal Exam Abdominal: Present soft and normoactive bowel sounds; Absent tenderness *Routine Extremities Exam Extremities: Present edema; Absent cyanosis or clubbing Comments: Bilateral lower extremity 1+ pitting edema up to knees, same as yesterday *Routine Skin Exam Skin: Present warm; Absent rash *Routine Neurological Exam Neurological: Present alert DS: Diagnosis Discharge Diagnosis (1) Acute on chronic heart failure with preserved ejection fraction (HFpEF): Status: Acute Code(s): I50.33 - Acute on chronic diastolic (congestive) heart failure Meds Home Medications and Allergies Home Medications ?Medication ?Instructions ?Recorded ?Confirmed ?Type omeprazole 20 mg capsule,delayed 20 mg PO DAILY #90 caps 07/03/23 03/10/24 Rx release aripiprazole 5 mg tablet 5 mg PO DAILY 01/02/24 03/10/24 History cholecalciferol (vitamin D3) 50 2,000 unit PO DAILY 01/02/24 03/10/24 History mcg (2,000 unit) tablet escitalopram oxalate 10 mg tablet 10 mg PO DAILY 01/02/24 03/10/24 History fluticasone furoate 100 1 inh inhalation DAILY 01/02/24 03/10/24 History mcg-vilanterol 25 mcg/dose inhalation powder (Breo Ellipta) levetiracetam 750 mg tablet 750 mg PO BID 01/02/24 03/10/24 History memantine 5 mg tablet 5 mg PO DAILY 01/02/24 03/10/24 History montelukast 10 mg tablet 10 mg PO HS 01/02/24 03/10/24 History rifaximin 550 mg tablet (Xifaxan) 550 mg PO BID #60 tabs 01/05/24 03/10/24 Rx ferrous sulfate 325 mg (65 mg 325 mg PO DAILY 03/10/24 03/10/24 History iron) tablet (FeroSul) bumetanide 1 mg tablet 1 mg PO DAILY #30 tabs 03/14/24 Rx folic acid 1 mg tablet 1 mg PO DAILY #30 tabs 03/14/24 Rx potassium chloride 20 mEq 40 meq (2 x 20 mEq) PO DAILY #30 03/14/24 Rx tablet,extended tabs release(part/cryst) (Klor-Con M) New Prescriptions to Start Prescriptions: bumetanide Chaitanya Bernardo folic acid Chaitanya Bernardo potassium chloride [Klor-Con M20] Chaitanya Bernardo Allergies Allergy/AdvReac Type Severity Reaction Status Date / Time Penicillins Allergy Mild Verified 06/13/23 10:04 Discharge Plan Disposition Patient Disposition: Hospice - Home Condition: Fair Discharge Order Discharge Orders: Discharge Order (Routine); Ordered 03/14/24 Ordered By: Chaitanya Bernardo Follow up Plan Follow up with: Jose Bell MD [Staff Physician] - Enter time for follow up Prescriptions/Medication Reconciliation: New potassium chloride [Klor-Con M20] 20 mEq Tablet,Er Particles/Crystals 40 meq PO DAILY Qty: 30 0RF bumetanide 1 mg Tablet 1 mg PO DAILY Qty: 30 0RF folic acid 1 mg Tablet 1 mg PO DAILY Qty: 30 0RF Continued omeprazole 20 mg capsule,delayed release(DR/EC) 20 mg PO DAILY Qty: 90 0RF montelukast 10 mg tablet 10 mg PO HS memantine 5 mg tablet 5 mg PO DAILY levetiracetam 750 mg tablet 750 mg PO BID Patient Comments: TAKE ONE TABLET BY MOUTH 2 TIMES A DAY FOR SEIZURES escitalopram oxalate 10 mg tablet 10 mg PO DAILY Patient Comments: TAKE ONE TABLET BY MOUTH ONCE A DAY FOR DEPRESSION aripiprazole 5 mg tablet 5 mg PO DAILY cholecalciferol (vitamin D3) 50 mcg (2,000 unit) tablet 2,000 unit PO DAILY fluticasone furoate-vilanterol [Breo Ellipta] 100-25 mcg/dose blister with device 1 inh INHALATION DAILY Xifaxan 550 mg Tablet 550 mg PO BID Qty: 60 0RF ferrous sulfate [FeroSul] 325 mg (65 mg iron) tablet 325 mg PO DAILY Discontinued furosemide 20 mg tablet 20 mg PO Q48H Problem Reconciliation Problems Reviewed?: Yes Patient Discharge Instructions ACTIVITY: Continue current activity DIET: continue same diet Patient Instructions: DI for Heart Failure, DI for Chronic Obstructive Pulmonary Disease, DI for Urinary Retention in Women, Catheter-Associated Urinary Tract Infection Print Language: Georgian Providers Primary Care Provider: Ofelia Ko Admit Provider: Fidel Lowry Attending Provider: Fidel Lowry
== END 2024-03-14 16:12 | disposition hospice, home (50) | DRG 291 ==
LOC: ER 09:19 → 2ND 11:56
PROVIDERS: Student in an Organized Health Care Education/Training Program; Admitting Provider Internal Medicine Adolescent Medicine; Emergency Provider Emergency Medicine; PCP Nurse Practitioner Family; Visit Provider Internal Medicine Adolescent Medicine
DX: I13.0 Hypertensive heart and chronic kidney disease with heart failure and stage 1 through stage 4 chronic kidney disease, or unspecified chronic kidney disease (principal); I50.33 Acute on chronic diastolic (congestive) heart failure; J96.01 Acute respiratory failure with hypoxia; J44.1 Chronic obstructive pulmonary disease with (acute) exacerbation; N17.9 Acute kidney failure, unspecified; I69.351 Hemiplegia and hemiparesis following cerebral infarction affecting right dominant side; K76.6 Portal hypertension; N39.0 Urinary tract infection, site not specified; R33.8 Other retention of urine; K74.60 Unspecified cirrhosis of liver; N18.9 Chronic kidney disease, unspecified; R33.9 Retention of urine, unspecified; F03.90 Unspecified dementia, unspecified severity, without behavioral disturbance, psychotic disturbance, mood disturbance, and anxiety; G40.909 Epilepsy, unspecified, not intractable, without status epilepticus; E87.6 Hypokalemia; Z96.642 Presence of left artificial hip joint; Z87.891 Personal history of nicotine dependence
CPT/HCPCS: 36415; 51702; 71045; 76770; 80048; 80050; 80053; 81001; 82140; 82550; 82607; 82746; 82803; 83036; 83605; 83735; 83880; 84443; 84484; 85025; 86803; 87040; 87086; 87389; 87506; 93308; 94640; 94760; 94761; 97110; 97162; 97166; 97530; 99285; J0696; J1650; J1939; J1940; J2405; J2919; J3475; J3480; J7620